=== PATIENT | female | born 1940 | race Caucasian/White ===

== ENCOUNTER → 2023-11-26 10:15 | Outpatient (REF) | payer MEDICARE, SELFPAY | LOC: DHCBS HW 10:15 | PROVIDERS: ATTENDING PHYSICIAN Nuclear Medicine Nuclear Cardiology; FAMILY PHYSICIAN Student in an Organized Health Care Education/Training Program | DX: I48.0 Paroxysmal atrial fibrillation (principal); I25.10 Atherosclerotic heart disease of native coronary artery without angina pectoris; I25.5 Ischemic cardiomyopathy; I34.0 Nonrheumatic mitral (valve) insufficiency | CPT/HCPCS: 93306 ==

== ENCOUNTER → 2024-01-25 06:24 | Day surgery (SDC) | payer MEDICARE, SELFPAY | LOC: GI 06:24 | PROVIDERS: ATTENDING PHYSICIAN Internal Medicine | DX: Z12.11 Encounter for screening for malignant neoplasm of colon (principal); K63.5 Polyp of colon; K57.30 Diverticulosis of large intestine without perforation or abscess without bleeding; K64.9 Unspecified hemorrhoids; K56.2 Volvulus; K22.89 Other specified disease of esophagus; K22.4 Dyskinesia of esophagus; K44.9 Diaphragmatic hernia without obstruction or gangrene; K31.89 Other diseases of stomach and duodenum; R13.10 Dysphagia, unspecified; Z98.0 Intestinal bypass and anastomosis status | CPT/HCPCS: 45380; 43239; 88305; 88342 ==

== ENCOUNTER 2024-02-23 16:03 | Emergency (ER) | payer MEDICARE, SELFPAY ==
[2024-02-23 16:06] VITALS: BP 155/95
[2024-02-23 17:01] VITALS: BMI 20.8
--- NOTE | 2024-02-23 17:11 | ED.GENMED ---
History of Present Illness
General
Chief Complaint: Dizziness
Source: patient
Exam Limitations: none
Time Seen by Provider: 02/23/24 17:04
Travel History
Have you had any contact with someone who has COVID-19?: No
Do you have any symptoms of coronavirus? Fever > 100 degrees, chills, cough, shortness of breath, sore throat, loss of taste or smell, muscle aches, or headache?: No
History of Present Illness
History of Present Illness:
See MDM
Past History
Past History
ED Past Medical History: CAD and GERD
ED Past Surgical History: Bowel resection and Cardiac (ptca 2012)
Social History
Tobacco: Non-smoker
Alcohol: Occasional
Drug: None
Personal:
Living: with family
Employment: Retired
Family History
Family History: CAD
Phy Exam
Physical Exam
Physical Exam:
See MDM
Course
Orders/Labs/Results
Orders:
Orders
02/23/24 16:11
Electrocardiogram (*1) Urgent
Reason for Study: Chest Pain
EKG- Treatment ONCE
02/23/24 17:10
0.9% Sodium Chloride 1000 ml [Nss] 1,000 ml IV BOLUS
02/23/24 17:11
CR Chest - 2 Views Urgent
Comment:
Reason For Exam: SOB, cough
02/23/24 17:16
Basic Metabolic Panel Urgent
COVID-19 Antigen Urgent
Source: Nasal Swab
Complete Blood Count/With Diff Urgent
Influenza A+B Rapid Molecular Urgent
ANG Source: Nasal Swab
Specimen Description:
02/23/24 18:51
NSS 1000mL Bolus over 1 hr 0.9% Sodium Chloride 1000 ml [Nss] 1,000 ml IV BOLUS
Abnormal Lab Results
02/23/24
17:16
RBC 3.88 L 10^6/uL
(4.20-5.40)
Hgb 11.8 L g/dL
(12.0-16.0)
Hct 35.0 L %
(37.0-47.0)
Absolute Neuts (auto) 6.7 H 10^3/uL
(1.4-6.5)
Absolute Lymphs (auto) 0.6 L 10^3/uL
(1.2-3.4)
Neutrophils % 85.8 H %
(42.2-75.2)
Lymphocytes % 7.2 L %
(20.5-51.1)
Sodium 132 L mmol/L
(135-145)
Carbon Dioxide 21 L mmol/L
(22-30)
BUN 19 H mg/dl
(7-17)
Glucose 102 H mg/dl
(70-99)
SARS-CoV-2 Antigen Positive A
(Negative)
02/23/24 17:16
02/23/24 17:55
Vital Signs
Initial and Last Documented VS:
Initial Vital Signs
Temp Pulse Resp BP Pulse Ox
99.1 F 130 20 155/95 98
02/23/24 16:06 02/23/24 16:06 02/23/24 16:06 02/23/24 16:06 02/23/24 16:06
Last Documented Vital Signs
Temp Pulse Resp BP Pulse Ox
99.1 F 114 18 120/104 97
02/23/24 16:06 02/23/24 18:15 02/23/24 18:15 02/23/24 18:00 02/23/24 18:15
MDM/Problems Addressed
Differential Diagnosis Includes:
HPI and MDM Narrative:
83-year-old female presenting with dizziness for the past few days. Symptoms occur when she stands up quickly. Her dizziness is described as lightheadedness. She denies vertiginous symptoms. This is preceded by cough and viral URI symptoms. She
went to urgent care assuming she could have COVID. Patient states they did not test anything and they sent her to the emergency department for evaluation. She denies chest pain or shortness of breath.
On exam, patient is well-appearing and nontoxic. She is tachycardic and clinically dehydrated. She does admit that she is not drinking a lot of fluid. Will obtain chest x-ray and basic blood work. Will check for COVID and will give IV fluids and
reassess tachycardia
Physical exam
General: Well appearing and non-toxic
HEENT: protecting airway. Dry mucous membranes. No nystagmus noted
Neck: appears supple
CV: No evidence of cyanosis. Tachycardic
Resp: No accessory muscle use. Lungs clear
Abd: Non-distended
Extremities: No deformities. No leg edema or unilateral tenderness
Neuro: alert. Normal finger-nose bilaterally
Psych: Normal affect
Skin: Intact
Problems Addressed including Acute and Chronic Conditions affecting care:
1. Lightheadedness
Acuity: acute
Prognosis: stable
Details: Likely in setting of viral URI and dehydration. Will obtain basic blood work and provide IV fluids
2. Cough
Acuity: acute
Prognosis: stable
Details: Will obtain chest x-ray to rule out pneumonia
3. [ ]
Acuity: acute
Prognosis: stable
Details:
4. [ ]
Acuity: acute
Prognosis: stable
Details:
5. [ ]
Acuity:
Prognosis:
Details:
Updates
5:50 PM patient found to be COVID-positive. Chest x-ray clear
Chest x-ray shows possible pulmonary nodules. Discussed having this followed up with PCP
6:50 PM after 1 L of IV fluids, tachycardia improving somewhat. Patient now ambulating to the bathroom and feeling better. Given the persistent mild tachycardia, will give a second liter of fluid. Patient states she feels comfortable going home
Differential Diagnosis (but not limited to): Viral URI, dehydration, COVID
Testing considered: Troponin but she denies chest pain
Drug therapy (if applicable): OTC meds, please see d/c instruction regarding Rx drugs
Amount and/or Complexity of Data Reviewed
Clinical info obtained from: Patient
External data reviewed: N/A
Labs I independently reviewed (but not limited to): White blood cell count within normal
Radiology: X-ray independently reviewed: Chest x-ray clear
Pulse Ox: not hypoxic
EKG independently reviewed: Sinus tachycardia, normal axis, no STEMI
Dog Raiser: Sinus tachycardia
Critical Care: N/A
Risk of Complication:
Social Determinants of health: Good social support
Discussed with other providers: N/A
Escalation of Care includes Admit/Obs: After being observed in the Emergency Department, pt stable for discharge.
Occasional wrong word or 'sound a like' substitutions may have occurred due to the inherent limitations of voice recognition software. Read the chart carefully and recognize, using context, where substitutions have occurred.
*Critical Care Note
Total Time (30-74mins, 75-104mins- exclusive of procedures): Not Applicable
ED Attending Note
-
Portions of this chart may have been created with voice recognition software.� Occasional wrong word or��sound alike� substitutions may have occurred due to the inherent limitations of voice recognition software.
Discharge Plan
Departure
Patient Disposition: Home (Routine Discharge)
Date of Disposition: 02/23/24
Time of Disposition: 18:52
Patient with high blood pressure during this ER visit?: No
Discharge Problem:
COVID-19, Dehydration
Instructions: COVID-19 ED
Prescriptions:
No Action
paroxetine HCl 20 MG tablet
20 mg PO HS
pantoprazole 40 MG tablet,delayed release (DR/EC)
40 mg PO DAILY
nitroglycerin 0.4 MG tablet, sublingual
0.4 mg sublingual Q5MPRN PRN (Reason: X 3; CHEST PAIN) Qty: 30 3RF
Eliquis 5 MG tablet
5 mg PO BID
Hold Instructions: Resume on 10/18/22.
atorvastatin 40 MG tablet
40 mg PO HS
metoprolol tartrate 25 MG tablet
12.5 mg PO BID
aspirin 81 mg Tablet,Chewable
81 mg PO DAILY
letrozole 2.5 mg Tablet
2.5 mg PO DAILY
ezetimibe [Zetia] 10 mg Tablet
10 mg PO HS
Lumigan 0.01 % Drops
1 drp OPHTHALMIC (EYE) DAILY
mupirocin 2 % ointment
1 applic topical BID Qty: 1 0RF
Patient Comments:
started treatment 10/09/22 and was taking BID. last took at home 10/11/21 in am at 0630
famotidine 20 mg Tablet
20 mg PO HS Qty: 1 0RF
Rx Instructions:
take nightly
docusate sodium 100 mg Capsule
100 mg PO BID Qty: 1 0RF
Eliquis 2.5 mg Tablet
2.5 mg PO BID Qty: 1 0RF
Rx Instructions:
resume full dose on Oct if no active incisional bleeding at that time
sennosides [senna] 8.6 mg Tablet
17.2 mg PO BID Qty: 2 0RF
oxycodone 5 mg tablet
5 mg PO Q6HPRN PRN (Reason: moderate-severe pain) Qty: 30 0RF
Rx Instructions:
Dx TKA
ongoing therapy
prednisone 10 mg tablet
40 mg PO TAPER Qty: 20 0RF
Rx Instructions:
4 TABS X 2 DAYS, 3 TABS X 2 DAYS, 2 TABS X 2 DAYS, 1 TAB X 2 DAYS, THEN STOP
acetaminophen [Tylenol Extra Strength] 500 MG tablet
1,000 mg PO QID Qty: 2 0RF
valsartan 40 MG tablet
40 mg PO DAILY Qty: 1 0RF
Rx Instructions:
hold systolic blood pressure <130 if taking Oxycodone
Referrals:
Bing Paz MD [Family Provider] -
Activity Restrictions/Additional Instructions:
Please return for any worsening symptoms.
You may return at any time if you have further concerns.
Please follow up with your doctor at the first available appointment, preferably this week.
The chest x-ray showed concern for possible pulmonary nodules. Please have this followed up with your primary care doctor.
Thank you for choosing [facility].
Interventions
Interventions:
*Risk Screen - Suicide Last Done: 02/23/24 16:06
*General Assessment Last Done: 02/23/24 16:06
*Neglect/Abuse Screening Last Done: 02/23/24 16:06
ED- Fall Risk Assessment Last Done: 02/23/24 17:01
*ED COVID-19 Vaccine History Last Done: 02/23/24 17:01
ED- Neurological Assessment Last Done: 02/23/24 17:01
ED Swallowing Screen Last Done: 02/23/24 18:30
Discharge Date and Time
Print Language: ALB[place]IAN
[2024-02-23] MEDS: NSS 1000 IV ×2 (17:14→18:57)
[2024-02-23 17:23] LABS: % Basophils 0.4 % (0-2); % Immature Granulocytes 0.3 % (0-0.5); % Lymphocytes 7.2 % (20.5-51.1); % Monocytes 6.3 % (1.7-9.3); % Neutrophils 85.8 % (42.2-75.2); Absolute Lymphocytes 0.6 10^3/uL (1.2-3.4); Absolute Monocytes 0.5 10^3/uL (0.1-0.6); Absolute Neutrophils 6.7 10^3/uL (1.4-6.5); Hemoglobin 11.8 g/dL (12.0-16.0); Mean Corp Hgb Conc. 33.7 g/dL (33.0-37.0); Mean Corpuscular Hgb 30.4 pg (27.0-31.0); Mean Corpuscular Volume 90.2 fL (81.0-99.0); Mean Platelet Volume 9.7 fL (7.4-10.4); Nucleated Red Blood Cells % 0 %; Platelet Count 192 10^3/uL (130-400); Red Blood Cell Count 3.88 10^6/uL (4.20-5.40); Red Cell Dist. Width 13.5 % (11.5-14.5); White Blood Cell Count 7.8 10^3/uL (4.8-10.8)
[2024-02-23 17:46] LABS: COVID-19 Antigen Positive (Negative)
[2024-02-23 17:49] LABS: Blood Urea Nitrogen 19 mg/dl (7-17); Calcium 9.1 mg/dl (8.4-10.2); Carbon Dioxide 21 mmol/L (22-30); Chloride 100 mmol/L (98-107); Estimated Creatinine Clearance 60 ml/min; Glucose 102 mg/dl (70-99); Sodium 132 mmol/L (135-145); eGFR > 60.00
[2024-02-23 18:00] VITALS: BP 120/104
--- NOTE | 2024-02-23 19:00 | EDRN ---
Report received, introduced myself to patient, aware after fluids are done she will be going home.
== END 2024-02-23 20:15 | disposition home or self-care (01) ==
LOC: EMR 16:03
PROVIDERS: EMERGENCY PHYSICIAN Student in an Organized Health Care Education/Training Program; FAMILY PHYSICIAN Student in an Organized Health Care Education/Training Program
DX: U07.1 COVID-19 (principal); E86.0 Dehydration; R42 Dizziness and giddiness; Z11.52 Encounter for screening for COVID-19; I25.10 Atherosclerotic heart disease of native coronary artery without angina pectoris; K21.9 Gastro-esophageal reflux disease without esophagitis; Z79.01 Long term (current) use of anticoagulants; Z79.82 Long term (current) use of aspirin
CPT/HCPCS: 99284; 96360; 96361; 71046; 80048; 85025; 87502; 87811; 93005

== ENCOUNTER → 2024-03-25 09:35 | Outpatient (REF) | payer MEDICARE, SELFPAY | LOC: WDC 09:35 | PROVIDERS: ATTENDING PHYSICIAN Nurse Practitioner Family; FAMILY PHYSICIAN Student in an Organized Health Care Education/Training Program | DX: N64.4 Mastodynia (principal); N64.59 Other signs and symptoms in breast; Z85.3 Personal history of malignant neoplasm of breast; C50.211 Malignant neoplasm of upper-inner quadrant of right female breast | CPT/HCPCS: 76642; 77061; 77065 ==

== ENCOUNTER → 2024-04-07 14:14 | Outpatient (REF) | payer MEDICARE, SELFPAY | LOC: HWRAD 14:14 | PROVIDERS: ATTENDING PHYSICIAN Student in an Organized Health Care Education/Training Program | DX: R91.1 Solitary pulmonary nodule (principal) | CPT/HCPCS: 71250 ==

== ENCOUNTER → 2024-06-30 13:24 | Outpatient (REF) | payer MEDICARE, SELFPAY | LOC: HWWDC 13:24 | PROVIDERS: ATTENDING PHYSICIAN Internal Medicine Hematology & Oncology; FAMILY PHYSICIAN Student in an Organized Health Care Education/Training Program | DX: Z12.31 Encounter for screening mammogram for malignant neoplasm of breast (principal) | CPT/HCPCS: 77063; 77067 ==

== ENCOUNTER → 2024-11-19 09:17 | Outpatient (REF) | payer MEDICARE, SELFPAY | LOC: HWRCS 09:17 | PROVIDERS: ATTENDING PHYSICIAN Nuclear Medicine Nuclear Cardiology; FAMILY PHYSICIAN Student in an Organized Health Care Education/Training Program | DX: I25.5 Ischemic cardiomyopathy (principal); I48.0 Paroxysmal atrial fibrillation | CPT/HCPCS: 93306 ==

== ENCOUNTER → 2024-12-12 09:07 | Outpatient (REF) | payer OTHER, SELFPAY | LOC: RAD 09:07 | PROVIDERS: ATTENDING PHYSICIAN Student in an Organized Health Care Education/Training Program | DX: R42 Dizziness and giddiness (principal); Z85.3 Personal history of malignant neoplasm of breast; R51.9 Headache, unspecified; M79.2 Neuralgia and neuritis, unspecified | CPT/HCPCS: 70470; 93922; 93925; Q9967 ==

== ENCOUNTER → 2025-01-29 15:00 | Outpatient (REF) | payer OTHER, SELFPAY | LOC: HWRAD 15:00 | PROVIDERS: ATTENDING PHYSICIAN Psychiatry & Neurology Neurology; FAMILY PHYSICIAN Student in an Organized Health Care Education/Training Program | DX: M54.50 Low back pain, unspecified (principal); M54.17 Radiculopathy, lumbosacral region; M54.2 Cervicalgia; M54.12 Radiculopathy, cervical region; M54.6 Pain in thoracic spine; M54.14 Radiculopathy, thoracic region | CPT/HCPCS: 72050; 72072; 72110 ==

== ENCOUNTER 2025-03-19 15:07 | Inpatient (IN) | payer OTHER, SELFPAY ==
[2025-03-19] VITALS (11 sets, daily range): BP systolic 103–159; BP diastolic 65–109; BMI 18.3
[2025-03-19] MEDS: LOPRESSOR 5 MG IV (11:16)
[2025-03-19 11:30] LABS: % Basophils 0.5 % (0-2); % Eosinophils 1.2 % (0-6); % Immature Granulocytes 0.3 % (0-0.5); % Lymphocytes 22.3 % (20.5-51.1); % Monocytes 9.4 % (1.7-9.3); % Neutrophils 66.3 % (42.2-75.2); Absolute Eosinophils 0.1 10^3/uL (0-0.7); Absolute Lymphocytes 1.3 10^3/uL (1.2-3.4); Absolute Monocytes 0.5 10^3/uL (0.1-0.6); Absolute Neutrophils 3.8 10^3/uL (1.4-6.5); Hematocrit 35.3 % (37.0-47.0); Hemoglobin 11.6 g/dL (12.0-16.0); Mean Corp Hgb Conc. 32.9 g/dL (33.0-37.0); Mean Corpuscular Hgb 31.4 pg (27.0-31.0); Mean Corpuscular Volume 95.4 fL (81.0-99.0); Mean Platelet Volume 9.5 fL (7.4-10.4); Nucleated Red Blood Cells % 0 %; Platelet Count 237 10^3/uL (130-400); Red Cell Dist. Width 14.4 % (11.5-14.5); White Blood Cell Count 5.7 10^3/uL (4.8-10.8)
--- NOTE | 2025-03-19 11:31 | ED.CVA ---
History of Present Illness
General
Chief Complaint: CVA/TIA Symptoms
Time Seen by Provider: 03/19/25 10:50
Onset of Stroke Symptoms
Onset of symptoms known: Yes
Date of onset of symptoms: 03/18/25
Time of onset of symptoms: 14:00
History of Present Illness
History of Present Illness:
84-year-old female with history of A-fib on Eliquis presenting to the emergency department for episode of slurred speech. Patient arrives reporting that yesterday she was in the car with her friend. Her friend noticed an episode of slurred speech
that lasted a few seconds and patient herself noticed it as well. That has since resolved. However when patient woke up this morning, felt like her heart was racing. Her 's bee tender checked her heart rate, noted that it was elevated.
Patient called her doctor who advised that she come to the hospital. She reports she does not typically feel when she is in atrial fibrillation. Denies associated chest pain or difficulty breathing. Denies focal weakness or numbness to
extremities. Denies any history of stroke. Denies visual changes. Denies fever or recent illness. Denies additional acute medical complaints
Past History
Past History
ED Past Medical History: CAD and GERD
ED Past Surgical History: Bowel resection and Cardiac (ptca 2012)
Social History
Tobacco: Non-smoker
Alcohol: Occasional
Drug: None
Personal:
Living: with family
Employment: Retired
Family History
Family History: CAD
Phy Exam
Physical Exam
Physical Exam:
General: Well-appearing, no clinical signs of dehydration, nontoxic and in no acute distress
HEENT: protecting airway
Neck: appears supple
CV: Tachycardic, irregularly irregular rhythm
Resp: No accessory muscle use, no increased work of breathing, lungs clear to auscultation bilaterally
Abd: Soft and non-distended, no tenderness to palpation, normal bowel sounds
Extremities: No deformities, no swelling
Neuro: alert, no focal neurologic deficit
: deferred
Rectal: deferred
Psych: Normal affect
Skin: Intact
Scores
NIH Stroke Score
Level of Consciousness: 0 - Alert
LOC Questions: 0-Answers both correctly
LOC Commands: 0-Performs both correctly
Best Horizontal Gaze: 0-Normal
Visual [place]: 0=Normal, no visual loss
Facial Palsy: 0=Normal, symmetrical
Motor - Right Arm: 0=No drift 10 seconds
Motor - Left Arm: 0=No drift 10 seconds
Motor - Right Le-No drift 5 seconds
Motor - Left Le-No drift 5 seconds
Limb Ataxia: 0-Absent
Sensation: 0-Normal
Best Language: 0-No aphasia
Dysarthria: 0-Normal
Extinction and Inattention: 0-No abnormality
NIH Total Score:: 0
Course
Orders/Labs/Results
Orders:
Orders
03/19/25 10:12
Electrocardiogram (*1) Urgent
Reason for Study: Tachycardia
EKG- Treatment ONCE
03/19/25 11:02
CT Head & Neck Angio W/wo IV Urgent
Comment:
Reason For Exam: episode of slurred speech
Metoprolol [Lopressor] 5 mg IV NOW STA
03/19/25 11:12
Complete Blood Count/With Diff Urgent
Comprehensive Metabolic Panel Urgent
PTT Urgent
Prothrombin Time Urgent
Troponin I Urgent
03/19/25 13:58
Diltiazem 125 mg/125 ml Nss [Cardizem] 125 mg in 125 ml IV NOW
Currently infusing. Continue current dose and titrate:: Yes
Titrate to keep:: Heart rate 80-100 bpm
Titrate by mg/hr:: 5 mg/hr
Frequency of titrations (minutes):: 15
Maximum dose in mg/hr:: 15
Abnormal Lab Results
03/19/25
11:12
RBC 3.70 L 10^6/uL
(4.20-5.40)
Hgb 11.6 L g/dL
(12.0-16.0)
Hct 35.3 L %
(37.0-47.0)
MCH 31.4 H pg
(27.0-31.0)
MCHC 32.9 L g/dL
(33.0-37.0)
Monocytes % 9.4 H %
(1.7-9.3)
Chloride 111 H mmol/L
(98-107)
BUN 20 H mg/dl
(7-17)
AST 43 H U/L
(14-36)
ALT 62 H U/L
(0-35)
03/19/25 11:12
03/19/25 11:12
Vital Signs
Initial and Last Documented VS:
Initial Vital Signs
Temp Pulse Resp BP Pulse Ox
98.1 F 142 16 159/96 98
03/19/25 10:08 03/19/25 10:08 03/19/25 10:08 03/19/25 10:08 03/19/25 10:08
Last Documented Vital Signs
Temp Pulse Resp BP Pulse Ox
98.1 F 119 19 137/98 96
03/19/25 10:08 03/19/25 11:30 03/19/25 11:30 03/19/25 12:00 03/19/25 12:00
MDM/Problems Addressed
MDM/Problems Addressed:
84-year-old female with history of A-fib on Eliquis presenting for episode of slurred speech and elevated heart rate. Vital signs on arrival are significant for tachycardia.
On exam patient is resting comfortably, no acute distress or discomfort. Regarding episode of slurred speech, appears consistent with likely TIA, symptoms since resolved with a current NIH stroke scale of 0. Will plan for CT head and CT neck
imaging. Regarding elevated heart rate, appears to be in A-fib with RVR. Holding off any cardioversion at this time in keeping with workup for acute CVA. Will administer IV metoprolol, metoprolol as patient's home medication. Will continue to
monitor. Laboratory laboratory analysis.
13:30 -patient's labs are relatively unremarkable. Heart rate is minimally improved after metoprolol. CT shows right vertebral artery occlusion, unclear acuity. In discussion with neurology, unlikely to be etiology for symptoms. Ultimately feel
patient warrants admission for continued workup of stroke, MRI. Will discuss with cardiology regarding management of A-fib.
*EKG
Interpreted by ED Provider?: Yes
EKG Intrepretation Date: 03/19/25
EKG Intrepretation Time: 11:35
Interpretation: normal
Comparison EKG: changes noted
Heart Rate: 132
Rate: tachycardiac
Rhythm: a-fib
[place]: normal axis
QRS Pattern: normal QRS
Ischemia: no ischemia
*Critical Care Note
Total Time (30-74mins, 75-104mins- exclusive of procedures): Not Applicable
ED Attending Note
-
Portions of this chart may have been created with voice recognition software.� Occasional wrong word or��sound alike� substitutions may have occurred due to the inherent limitations of voice recognition software.
Discharge Plan
Departure
Patient Disposition: Admit
Date of Disposition: 03/19/25
Time of Disposition: 14:00
Presentation/result/management discussed w/ accepting MD/DO: Hospitalist
Patient with high blood pressure during this ER visit?: No
Condition: Fair
Discharge Problem:
Stroke-like symptoms, Atrial fibrillation with RVR
Prescriptions:
No Action
paroxetine HCl 20 MG tablet
20 mg PO HS
pantoprazole 40 MG tablet,delayed release (DR/EC)
40 mg PO DAILY
nitroglycerin 0.4 MG tablet, sublingual
0.4 mg sublingual Q5MPRN PRN (Reason: X 3; CHEST PAIN) Qty: 30 3RF
Eliquis 5 MG tablet
5 mg PO BID
atorvastatin 40 MG tablet
40 mg PO HS
metoprolol tartrate 25 MG tablet
12.5 mg PO BID
aspirin 81 mg Tablet,Chewable
81 mg PO DAILY
letrozole 2.5 mg Tablet
2.5 mg PO DAILY
ezetimibe [Zetia] 10 mg Tablet
10 mg PO HS
Lumigan 0.01 % Drops
1 drp OPHTHALMIC (EYE) DAILY
mupirocin 2 % ointment
1 applic topical BID Qty: 1 0RF
Patient Comments:
started treatment 10/09/22 and was taking BID. last took at home 10/11/21 in am at 0630
famotidine 20 mg Tablet
20 mg PO HS Qty: 1 0RF
Rx Instructions:
take nightly
docusate sodium 100 mg Capsule
100 mg PO BID Qty: 1 0RF
Eliquis 2.5 mg Tablet
2.5 mg PO BID Qty: 1 0RF
Rx Instructions:
resume full dose on Oct if no active incisional bleeding at that time
sennosides [senna] 8.6 mg Tablet
17.2 mg PO BID Qty: 2 0RF
oxycodone 5 mg tablet
5 mg PO Q6HPRN PRN (Reason: moderate-severe pain) Qty: 30 0RF
Rx Instructions:
Dx TKA
ongoing therapy
prednisone 10 mg tablet
40 mg PO TAPER Qty: 20 0RF
Rx Instructions:
4 TABS X 2 DAYS, 3 TABS X 2 DAYS, 2 TABS X 2 DAYS, 1 TAB X 2 DAYS, THEN STOP
acetaminophen [Tylenol Extra Strength] 500 MG tablet
1,000 mg PO QID Qty: 2 0RF
valsartan 40 MG tablet
40 mg PO DAILY Qty: 1 0RF
Rx Instructions:
hold systolic blood pressure <130 if taking Oxycodone
Referrals:
Bing Paz MD [Family Provider, Internal Medicine]
Interventions
Interventions:
*Risk Screen - Suicide Last Done: 03/19/25 10:11
*General Assessment Last Done: 03/19/25 11:24
*Neglect/Abuse Screening Last Done: 03/19/25 10:11
*ED- Fall Risk Assessment Last Done: 03/19/25 11:24
*ED COVID-19 Vaccine History Last Done: 03/19/25 11:24
ED- Pulmonary Assessment Last Done: 03/19/25 11:54
ED- Neurological Assessment Last Done: 03/19/25 11:54
ED- Cardiac Assessment Last Done: 03/19/25 11:54
Discharge Date and Time
Print Language: ARABIC
[2025-03-19 11:56] LABS: ALT (SGPT) 62 U/L (0-35); APTT 27.5 Sec (23.4-35.0); AST (SGOT) 43 U/L (14-36); Albumin 4.3 g/dl (3.5-5.0); Alkaline Phosphatase 120 U/L (38-126); Blood Urea Nitrogen 20 mg/dl (7-17); Carbon Dioxide 26 mmol/L (22-30); Chloride 111 mmol/L (98-107); Estimated Creatinine Clearance 40 ml/min; Glucose 98 mg/dl (70-99); INR 1.01; PT 13.8 Sec (11.4-14.6); Potassium 4.2 mmol/L (3.5-5.1); Sodium 143 mmol/L (135-145); Total Bilirubin 0.7 mg/dl (0.2-1.3); Total Protein 6.3 g/dl (6.3-8.2); eGFR > 60.00
[2025-03-19 12:02] LABS: Troponin I < 0.012 ng/ml
--- NOTE | 2025-03-19 14:08 | HPS.HSE ---
Family Physician
-
Family Physician: Bing Paz MD
Chief Complaint
-
slurred speech and palpitations
History of Present Illness
Patient is a 84-year-old female with past medical history significant for paroxysmal atrial fibrillation, hypertension, hyperlipidemia, HFpEF, ischemic cardiomyopathy and Hx right breast cancer who presented to [facility] ED for evaluation of episode of
slurred speech and palpitations. Patient reports feeling weakness and some nausea intermittently for a few weeks, then yesterday while driving with a friend had a brief moment of slurred speech that resolved spontaneously. She reports today feeling
palpitations/fluttering in her chest with some lightheadedness. Patient denies any recent illness, fever, chills, cough, shortness of breath or chest pain. Patient does note some memory decline and can sometimes forget to take medications.
Medical History
Past Medical History
Past Medical History: Reports Other
Additional Past Medical History:
paroxysmal atrial fibrillation
hypertension
hyperlipidemia
HFpEF
ischemic cardiomyopathy
Hx right breast cancer
Past Surgical History: Reports Other
Additional Past Surgical History:
LEEP (2000)
Breast biopsy - benign
Cataract extraction
Percutaneous transluminal balloon angioplasty with insertion of stent into coronary artery(2012)
Cardiac catheterization with 2 stent placements
Right Hemicolectomy
Incisional hernia repair(2013)
S/P stenting LAD and mid-RCA with PROMUS drug-eluting stent
Left miniscus repair
Small Bowl Resection from Obstruction (2012)
Conization of Cervix
Hernia Repair (2013)
LT Knee Surgery 2016
Cardiac Cath 06/16/2019
rt breast bx dh breast cancer 05/27
rt lumpectomy 07/2020
RT Breast Bx 06/2020 Benign
LTKR 10/2022
Social History
Tobacco: Non-smoker
Alcohol: Daily (1 glass of wine daily )
Drug: None
Personal:
Living: With Family
Employment: Retired
Family History
Family History: Other (Mother (): CAD; Father ( at 42): CAD, [place] )
Allergies / Home Medications
Allergies reflects when Allergies were last updated in [facility].
Home Medications with original date entered in [facility]
Allergy/Medication List:
Allergies
Allergy/AdvReac Type Severity Reaction Status Date / Time
No Known Allergies Allergy Verified 02/23/24 16:10
Home Medications
pantoprazole 40 mg tablet,delayed release 40 mg PO DAILY Gastrointestinal issue 07/26/15
apixaban 5 mg tablet (Eliquis) 5 mg PO BID Blood clot prevention/tx 07/19/20
Held on 10/12/22. Instructions: Resume on 10/18/22.
atorvastatin 40 mg tablet 40 mg PO HS High cholesterol 07/19/20
metoprolol tartrate 25 mg tablet 12.5 mg PO BID Blood pressure 07/19/20
bimatoprost 0.01 % eye drops (Lumigan) 1 drp ophthalmic (eye) DAILY Eye condition 09/15/22
ezetimibe 10 mg tablet (Zetia) 10 mg PO HS High cholesterol 09/15/22
letrozole 2.5 mg tablet 2.5 mg PO DAILY Cancer 09/15/22
aspirin 81 mg tablet 81 mg PO DAILY 03/19/25
calcium carbonate 1,000 mg PO DAILY 03/19/25
cyanocobalamin (vitamin B-12) 50 mcg tablet (Vitamin B-12) 50 mcg PO BID 03/19/25
duloxetine 30 mg capsule,delayed release 30 mg PO DAILY 03/19/25
evolocumab 140 mg/mL subcutaneous pen injector (Repatha SureDamonick) 140 mg SC ONCE 03/19/25
paroxetine HCl 30 mg tablet 30 mg PO DAILY 03/19/25
Review of Systems
-
History Source: Patient
Constitutional: Reports No Symptoms
EENT: Reports No Symptoms
Respiratory: Reports No Symptoms
Cardiac: Reports Palpitations
Abdomen/GI: Reports No Symptoms
: Reports No Symptoms
Musculoskeletal: Reports No Symptoms
Skin: Reports No Symptoms
Neurological: Reports Dizzy, Weakness and Other (1 episode of slurred speech yesterday )
Endocrine: Reports No Symptoms
Hematologic/Lymphatic: Reports No Symptoms
Psych: Reports No Symptoms
Physical Exam
Vital Signs
Vital Signs
Temp Pulse Resp BP Pulse Ox
98.1 F 119 19 137/98 96
03/19/25 10:08 03/19/25 11:30 03/19/25 11:30 03/19/25 12:00 03/19/25 12:00
Physical Exam
General: Well Developed, Well Nourished, No Apparent Distress, Comfortable and Conversant
HEENT: NormoCephalic, Moist mucous membranes, Atraumatic, Nose Appears Normal, Ears Appear Normal and Hearing Impaired
Respiratory: Clear
Cardiac: S1/S2, Irregular Rhythm and Tachycardia
Breast: Deferred by me
GI: Soft, Non Tender, Non Distended and Normal Bowel Sounds
Rectal: Deferred by Provider
Genito-urinary: Deferred by me
Musculoskeletal: No Clubbing, No Cyanosis and No Edema
Skin: IV/Catheter Site
Neuro: Awake, Alert, AO x 3 and Nonfocal/grossly intact
Psych: Calm
Laboratory Results
-
03/19/25 11:12
03/19/25 11:12
Laboratory Results
PT 13.8 Sec (11.4-14.6) 03/19/25 11:12
INR 1.01 03/19/25 11:12
APTT 27.5 Sec (23.4-35.0) 03/19/25 11:12
Total Bilirubin 0.7 mg/dl (0.2-1.3) 03/19/25 11:12
AST 43 U/L (14-36) H 03/19/25 11:12
ALT 62 U/L (0-35) H 03/19/25 11:12
Alkaline Phosphatase 120 U/L (38-126) 03/19/25 11:12
Troponin I < 0.012 ng/ml 03/19/25 11:12
Data Reviewed
-
CT Scan: Report Reviewed by me (Head/Neck: 1. No acute intracranial abnormality identified. Small chronic lacunar infarct right internal capsule. 2. Occlusion of the right vertebral artery, indeterminate acuity. 3. Approximately 40% stenosis
right internal carotid artery. No significant stenosis left internal carotid artery.)
Medical Tests (Nuc Med, Echo, EKG etc): Report Reviewed by me (EKG: ATRIAL FIBRILLATION WITH RAPID VENTRICULAR RESPONSE NONSPECIFIC ST ABNORMALITY)
Lab Data: Labs Reviewed by me
Impression/Plan
-
IMPRESSION/PLAN:
#palpitations 2/2 paroxysmal atrial fibrillation
EKG: ATRIAL FIBRILLATION WITH RAPID VENTRICULAR RESPONSE
NONSPECIFIC ST ABNORMALITY
Head/Neck CTA: 1. No acute intracranial abnormality identified. Small chronic lacunar infarct right internal capsule.
2. Occlusion of the right vertebral artery, indeterminate acuity.
3. Approximately 40% stenosis right internal carotid artery. No significant stenosis left internal carotid artery.
4. Negative for major branch vessel occlusion, dissection, or aneurysm formation.
Addendum: As described in the findings of the initial report, but not included in the impression, there is also a high-grade stenosis at the origin of the left vertebral artery
(image #35 coronal series).
- Admit to telemetry
- Consult Cardiology
- IV diltiazem
- continue Eliquis and metoprolol
#slurred speech with lightheadedness 2/2 CVA/TIA??
Head/Neck CTA: 1. No acute intracranial abnormality identified. Small chronic lacunar infarct right internal capsule.
2. Occlusion of the right vertebral artery, indeterminate acuity.
3. Approximately 40% stenosis right internal carotid artery. No significant stenosis left internal carotid artery.
4. Negative for major branch vessel occlusion, dissection, or aneurysm formation.
Addendum: As described in the findings of the initial report, but not included in the impression, there is also a high-grade stenosis at the origin of the left vertebral artery
(image #35 coronal series).
- Consult Neurology
- MRI in morning
#transaminitis
AST 43, ALT 62, Alk phos 120
appears to be baseline
- monitor LFTs
#hypertension
- continue metoprolol
#hyperlipidemia
- continue atorvastatin, ezetimibe and Repatha
#HFpEF
ECHO (11/19/2024): Normal left ventricular size, wall thickness and systolic function. No regional wall motion abnormalities are seen. LV ejection fraction is 55-60% by visual assessment.
Normal diastolic function.
Normal right ventricular size and function.
Thickened mitral valve leaflets with moderate mitral regurgitation.
Tricuspid valve opens normally with moderate to severe tricuspid regurgitation.
Estimated pulmonary artery pressure of 35-40 mmHg, assuming a right atrial pressure of 3 mmHg.
- daily weights
- I & Os
- continue metoprolol
#ischemic cardiomyopathy
s/p stent
- continue aspirin
#GERD
- continue pantoprazole
#depression/anxiety
- continue duloxetine and paroxetine
#Hx right breast cancer
- continue letrozole
Code status: full code
DVT Prophylaxis: Eliquis
[2025-03-19] MEDS: CARDIZEM 125 IV (14:29)
--- NOTE | 2025-03-19 15:09 | CON.CAR ---
Addendum entered and electronically signed by Isma Machuca MD 03/19/25 21:00:
Pleasant 84-year-old woman with transient dysarthria yesterday who presented to [facility] with complaints of palpitations and found to be in A-fib with rapid ventricular response.. Neurologic symptoms have completely resolved. CTA
suggested high-grade left vertebral stenosis with modest carotid artery disease. There is a history of known paroxysmal atrial fibrillation, in general she is compliant with Eliquis but may have missed a dose or 2 recently.
PMH: PAF on Eliquis, LAD and RCA PCI in 2014, moderate to severe TR, moderate MR, hypertension and hyperlipidemia
PSH: Volvulus requiring resection in 2012
Outpatient meds: Reviewed, patient on Eliquis and aspirin.
Rest of history per [place]
103/65, pulse 100-120, respirations 16, afebrile, head neck exam unremarkable, lungs are clear, soft systolic murmur with a regular rate and rhythm, tachycardic abdomen benign extremities without significant edema, neuro nonfocal
ECG: Atrial fibrillation with rapid ventricular response, nonspecific ST-T wave changes
Hemoglobin 11.6, white count 5.7, platelets 237, BUN/creatinine 20 and 0.9, AST 43, ALT 62
Impression:
Paroxysmal atrial fibrillation with rapid ventricular response, onset possibly yesterday
TIA, cardioembolic versus atheroembolic
High-grade vertebral stenosis, unlikely to be cause of TIA
Rest of diagnoses as below per Savannah Albarado. Reviewed in detail and agree, unless otherwise specified below
Plan:
She presents with atrial fibrillation that is likely 24 hours in onset, but this is not certain, and she has missed a dose or 2 of anticoagulation over the last 2 or 3 weeks.
Best strategy is to proceed with transesophageal echo and cardioversion, assuming that neurologic status is satisfactory.
MRI to be performed later tonight, if no acute findings, and if neurology does not object, we can proceed with transesophageal echo and cardioversion in a.m. In the event the patient spontaneously reverts to sinus rhythm, FAHEEM can be canceled and we
can proceed with his thoracic echo.
Will discuss with primary oil burner mechanic whether antiarrhythmic therapy is indicated. At this point, we will control rate with IV diltiazem and consider up titration of metoprolol.
Original Note:
Consultation
Consultation Request
Date/Time Consultation Requested: 03/19/2025
Date/Time Consultation Performed: 03/19/2025
Requesting Provider: Dr. Byrd
Performing Provider: Dr. YOSHI Machuca
Reason for Consultation: Possible TIA, A-fib
Medical History
-
History of Present Illness:
Patient came to [facility] today with complaints of palpitations that started suddenly this morning and also mentioned that she had dysarthria yesterday and is now being admitted for possible TIA and A-fib and cardiology has been consulted. Patient
says that she has overall been overwhelmed since anniversary alliance party a week and a half ago, she describes having vivid dreams and not sleeping as well. She is also under a lot of stress helping to care for her . She went out to lunch
with a friend yesterday and driving home she had dysarthria which she could sense but her friend pointed out to her. No other symptoms. She says symptoms resolved and have not recurred. She wonders if she went into atrial fibrillation at that
time, but then describes sudden onset of pounding sensation in her chest that happened after taking a sip of coffee this morning. She has a history of paroxysmal atrial fibrillation dating as far back as at least 2018, but she does not remember if
she was symptomatic at that time. With all the commotion recently she missed at least 1 if not 2 doses of Eliquis in the last 2 weeks.
PMH:
Paroxysmal atrial fibrillation
Chronic Eliquis anticoagulation
Patient reports missing at least 1 if not 2 doses in the last 2 weeks
CAD s/p LAD/RCA PCI 2014
Moderate to severe TR
moderate MR by echo 11/19/2024
Moderate to severe TR with PAP 35 to 40 mmHg, pulmonary HTN by echo 11/19/2024
Afib with controlled ventricular response with hx PAFib
HTN
Hyperlipidemia
hx bowel resection (volvulus 2012)
Past Medical History
Past Medical History: Other (In HPI)
Past Surgical History: Cardiac (LAD and mid RCA stents) and Gynecological (LEEP 2000, breast biopsy)
Social History
Tobacco: Non-Smoker
Alcohol: Daily (glass of wine)
Drug: None
Personal:
Living: With Family
Family History
Family History: CAD
Allergies / Home Medications
Allergy/AdvReac Type Severity Reaction Status Date / Time
No Known Allergies Allergy Verified 02/23/24 16:10
�Medication �Instructions �Recorded �Confirmed �Type
pantoprazole 40 mg tablet,delayed 40 mg PO DAILY Gastrointestinal 07/26/15 03/19/25 History
release issue
apixaban 5 mg tablet (Eliquis) 5 mg PO BID Blood clot 07/19/20 03/19/25 History
Held on 10/12/22. prevention/tx
Instructions: Resume on
10/18/22.
atorvastatin 40 mg tablet 40 mg PO HS High cholesterol 07/19/20 03/19/25 History
metoprolol tartrate 25 mg tablet 12.5 mg PO BID Blood pressure 07/19/20 03/19/25 History
bimatoprost 0.01 % eye drops 1 drp ophthalmic (eye) DAILY Eye 09/15/22 03/19/25 History
(Lumigan) condition
ezetimibe 10 mg tablet (Zetia) 10 mg PO HS High cholesterol 09/15/22 03/19/25 History
letrozole 2.5 mg tablet 2.5 mg PO DAILY Cancer 09/15/22 03/19/25 History
aspirin 81 mg tablet 81 mg PO DAILY 03/19/25 03/19/25 History
calcium carbonate 1,000 mg PO DAILY 03/19/25 03/19/25 History
cyanocobalamin (vitamin B-12) 50 50 mcg PO BID 03/19/25 03/19/25 History
mcg tablet (Vitamin B-12)
duloxetine 30 mg capsule,delayed 30 mg PO DAILY 03/19/25 03/19/25 History
release
evolocumab 140 mg/mL subcutaneous 140 mg SC ONCE 03/19/25 03/19/25 History
pen injector (Philippe Jacques)
paroxetine HCl 30 mg tablet 30 mg PO DAILY 03/19/25 03/19/25 History
Review of Systems
-
History Source: Patient
All other systems: Negative unless noted
Physical Exam
Vital Signs
Temp Pulse Resp BP Pulse Ox
98.5 F 123 19 139/109 98
03/19/25 14:35 03/19/25 14:35 03/19/25 14:35 03/19/25 14:35 03/19/25 14:35
GEN: NAD. AAOx3
HEENT: EOMI, MMM
LUNGS: RA. CTA B/L without wheeze
CV: Afib with RVR on tele. Irreg irreg, S1/S2, no murmur
ABD: ND
EXT: No edema
NEURO: Gross non-focal
SKIN: No rash
Lab Results
03/19/25 11:12
03/19/25 11:12
Troponin I < 0.012 ng/ml 03/19/25 11:12
Impression / Plan
-
PCP: Dr. Bing Paz
Card: Dr. Clemente
Impression:
Admitted with paroxysmal atrial fibrillation with RVR and possible TIA 03/19/2025
Possible TIA, dysarthria symptoms on 03/18/2025 resolved spontaneously and no longer present 03/19/2025
A-fib with RVR
Paroxysmal atrial fibrillation
Chronic Eliquis anticoagulation
Patient reports missing at least 1 if not 2 doses in the last 2 weeks
CAD s/p LAD/RCA PCI 2014
Moderate to severe TR
moderate MR by echo 11/19/2024
Moderate to severe TR with PAP 35 to 40 mmHg, pulmonary HTN by echo 11/19/2024
Afib with controlled ventricular response with hx PAFib
HTN
Hyperlipidemia
hx bowel resection (volvulus 2012)
Echo 07/2017: EF 50%, anteroseptal hypokinesis, moderate TR/MR, PA 35
Echo 06/19/19: with ejection fraction 40-45%. Appears global with hypokinesis of the anterior septum and basal anterior wall. This is in the setting of atrial fibrillation. Moderate to severe TR. At least Moderate MR. PA pressure 35�40 mmHg.
Echo 11/19/2024: EF 55 to 60%, normal diastolic function, normal RV size and function, moderate MR, moderate to severe TR with PAP 35 to 40 mmHg
Plan:
-Patient came to [facility] today with complaints of palpitations that started suddenly this morning and also mentioned that she had dysarthria yesterday and is now being admitted for possible TIA and A-fib and cardiology has been consulted. Patient
says that she has overall been overwhelmed since anniversary alliance party a week and a half ago, she describes having vivid dreams and not sleeping as well. She is also under a lot of stress helping to care for her . She went out to lunch
with a friend yesterday and driving home she had dysarthria which she could sense but her friend pointed out to her. No other symptoms. She says symptoms resolved and have not recurred. She wonders if she went into atrial fibrillation at that
time, but then describes sudden onset of pounding sensation in her chest that happened after taking a sip of coffee this morning. She has a history of paroxysmal atrial fibrillation dating as far back as at least 2018, but she does not remember if
she was symptomatic at that time. With all the commotion recently she missed at least 1 if not 2 doses of Eliquis in the last 2 weeks.
-ECG reviewed by me shows A-fib with RVR
-Patient has symptomatic A-fib with RVR recommend rhythm control strategy with FAHEEM/CV. Will tentatively scheduled for FAHEEM/CV on 03/20/2025, but patient should have her MRI of the brain prior to FAHEEM/CV in the event that she did suffer stroke and if
neurology would want OAC to be held.
-If MRI of the brain is unremarkable and there are no adjustments to OAC regimen by neurology we will proceed with FAHEEM/CV in a.m.
-Prior to admission patient was taking Eliquis 5 mg BID (age 84, Cre 0.9, wt 53 kg), but given age greater than 80 and weight less than 60 kg recommend decreasing to Eliquis 2.5 mg BID, orders changed by me.
-Cardizem gtt running at 5 mg/hr and I talked with IT PROJECT MANAGER and they will increase to 10 mg/hr after patient uses bathroom. Patient previously converted to SR on Cardizem gtt in 2019 at hopeful that she will convert again, if she does not then FAHEEM/CV
as noted above
--- NOTE | 2025-03-19 15:23 | W.PN.UPDATE ---
Update Note
Progress Note Update
This is an addendum to the H&P written by Chelo Buchanan on 03/19/2025. �Patient seen and examined independently with MEDICAL APPOINTMENT CLERK.
84-year-old female past medical history of paroxysmal atrial fibrillation on Eliquis, CAD, ischemic cardiomyopathy, presenting with few days of feeling off, slurred speech occurring yesterday as well as palpitations this morning with dizziness. �No
chest pain or shortness of breath or focal weakness or numbness.
Patient with heart rate 130s. �EKG shows atrial fibrillation with RVR.
Labs show mild transaminitis. �Stable anemia.
CTA head and neck shows high-grade stenosis at the origin of the left vertebral artery. �40% stenosis of the right internal carotid artery. �Small chronic lacunar infarct of the right internal capsule.
Patient with atrial fibrillation with RVR as well as possible TIA.
She was given metoprolol start Cardizem drip. �Cardiology consulted.
Continue Eliquis and aspirin. �Check MRI brain to rule out CVA. �Neurology consulted.
[2025-03-19] MEDS: LOPRESSOR 12.5 MG PO (19:52)
[2025-03-19] MEDS: VITAMIN B-12 1000 MCG PO (19:53)
[2025-03-19] MEDS: ELIQUIS 5 MG PO (19:53)
[2025-03-19] MEDS: ATIVAN 0.5 MG IV (20:37)
[2025-03-19] MEDS: FLUSH (NSS) 1 FLUSH IV (20:38)
[2025-03-19] MEDS: LIPITOR 40 MG PO (22:19)
[2025-03-19] MEDS: NSS (PRESERVATIVE FREE) 0.25 ML IV (22:19)
[2025-03-19] MEDS: XALATAN OPHTHALMIC SOLUTION 1 DROP BOTH EYES (22:19)
[2025-03-19] MEDS: ZETIA 10 MG PO (22:19)
[2025-03-20] VITALS (19 sets, daily range): BP systolic 107–150; BP diastolic 67–106; PULSE 90; O2SAT 98; BMI 19.7
--- NOTE | 2025-03-20 01:26 | PTCARENOTE ---
Addendum entered by Madison Chanel RN 03/20/25 01:32:
Bed alarm in place as pt became more confused as the evening went on.
Original Note:
Received pt @ change of shift. AAOx3, daughter bedside. VSS, A-fib on monitor. Cardizem gtt running @ 10 mL/hr through right AC. Paused gtt for brain MRI. When pt returned, noticed leakage from IV site. Removed IV and placed a new one. Restarted
cardizem gtt @ 5 mL/hr as HR remained between 80-100 bpm. NIH score 0. Discussed plan of care for evening and being NPO @ midnight for ECHO/FAHEEM in AM. Verbalizes understanding. Call dong within reach.
[2025-03-20 05:38] LABS: Hematocrit 32.2 % (37.0-47.0); Hemoglobin 10.6 g/dL (12.0-16.0); Mean Corp Hgb Conc. 32.9 g/dL (33.0-37.0); Mean Corpuscular Hgb 31.4 pg (27.0-31.0); Mean Corpuscular Volume 95.3 fL (81.0-99.0); Mean Platelet Volume 9.3 fL (7.4-10.4); Platelet Count 219 10^3/uL (130-400); Red Blood Cell Count 3.38 10^6/uL (4.20-5.40); Red Cell Dist. Width 14.4 % (11.5-14.5); White Blood Cell Count 7.4 10^3/uL (4.8-10.8)
[2025-03-20 06:21] LABS: ALT (SGPT) 67 U/L (0-35); AST (SGOT) 55 U/L (14-36); Albumin 3.8 g/dl (3.5-5.0); Alkaline Phosphatase 108 U/L (38-126); Blood Urea Nitrogen 19 mg/dl (7-17); Calcium 8.7 mg/dl (8.4-10.2); Carbon Dioxide 24 mmol/L (22-30); Chloride 110 mmol/L (98-107); Estimated Creatinine Clearance 49 ml/min; Glucose 94 mg/dl (70-99); HDL Cholesterol 67 mg/dl; LDL Cholesterol, Calculated 15 mg/dl; Sodium 140 mmol/L (135-145); Total Bilirubin 0.8 mg/dl (0.2-1.3); Total Cholesterol 95 mg/dl (50-199); Total Protein 5.9 g/dl (6.3-8.2); Triglyceride 69 mg/dl (10-149); Very Low Density Lipoprotein 13 mg/dl (0-30); eGFR > 60.00
[2025-03-20] MEDS: CARDIZEM 125 IV (08:00)
--- NOTE | 2025-03-20 09:07 | CON.NEURO4 ---
Addendum entered and electronically signed by Gregory Schneider MD 03/20/25 14:34:
Studies reviewed.
I have personally examined the patient. I reviewed and agree with the ANALYTICAL LAB ANALYST's Note.
My addenda:
Awake, alert, interactive. No acute distress.
Speech intact.
Follows 2-step requests w/o difficulty. No tremor.
Extra-ocular movements grossly intact.
Facial movements full and symmetric. Hearing intact to normal conversational volume.
Normal UE movements bilaterally.
Neck: full ROM.
Chest: no dyspnea
Heart: no JVD
Ext: (-) Clubbing, (-) Cyanosis, (-) Edema
IMPRESSIONS/RECOMMENDATIONS:
Abrupt onset of dysarthria during atrial fibrillation rapid ventricular response and prior suggestion of chronic daily headache as well as cognitive issues
At this time, patient's symptomatology seems to be most likely secondary to cardiac dysrhythmia on a background of potential cognitive worsening in the past year
Inpatient, check blood work for potential metabolic abnormalities
Check orthostatic blood pressures
Continue apixaban
Outpatient neuropsychological testing
Provide patient with thiamine to ensure adequate levels
Continue duloxetine with suggestion of increased dosing in hopes of reducing the patient's daily headaches
Continue at home Ezetimibe and evolocumab
D/W patient
Will continue to follow as outpatient.
Original Note:
Consultation - Neurology 4
-
CONSULTING PHYSICIAN: Gregory Schneider MD
REFERRING PHYSICIAN: Hospitalists/JUANITA Dunbar
DICTATED BY: JUANITA Lowe
DATE/TIME OF REQUEST: 03/19/25
DATE/TIME OF CONSULTATION: 03/20/25
Reason for Consultation: Transient slurred speech, dizziness
History of Present Illness:
This is a 84-year-old right-handed female who has presented to the hospital on 03/19/25 with report of dysarthria, weakness, and heart racing. Patient reports that two days ago (03/18/25) she was driving when she started to feel weak, dizzy, and her
speech was slurred for one minute before resolving. She drove home and upon getting out of the car she noticed she couldn't walk straight. She drank some water and took a nap and reports that she felt better. Then yesterday (03/19/25), she felt like
her heart was racing and was lightheaded. She checked her heart rate and it was elevated so she called her PCP who advised her to come to the ER for evaluation. On arrival in the ER she was in Afib with RVR. CTA head/neck was obtained and
demonstrates high-grade stenosis of the left vertebral artery and occlusion of the right vertebral artery. She received lorazepam prior to MRI brain imaging last evening and subsequently had hallucinations throughout the night which she describes as
seeing scary people. Today (03/20/25) she reports feeling at her baseline. She reports about a one-year history of a light-headed sensation, short term memory issues, word finding difficulty, and feeling like food gets stuck in her throat at least
once a week. She attributes her memory problems to not being able to hear well (she has hearing aids but reports they don't work well). She also notes a chronic daily headache and has been taking Tylenol everyday for years. She is followed by pain
management for neck pain and has received steroid injections. Her mostly manages the finances and always has. She reads frequently. She does not some issues driving over the past year, she has trouble staying in her luz. She also notes that
she occasionally misses doses of her apixaban. She had an EMG in 2010 that demonstrated length dependent peripheral polyneuropathy.
Past Medical History: Afib (Eliquis), HTN, HLD, HFpEF, ischemic cardiomyopathy, R breast cancer
Surgical History: LEEP, R lumpectomy, b/l cataract removal, Cardiac cath, LAD and mid-RCA cardiac stents, left meniscus repair, small bowel resection, L TKR, peripheral neuropathy
Family History: Reviewed and noncontributory.
Social History: Denies tobacco and illicit drug use. One glass of wine daily with dinner.
Allergies: No known allergies.
Home Medications: See below.
Review of Symptoms:
Patient denies any fever, headache, chest pain, shortness of breath, GI or symptoms.
�Per the HPI.�All systems are reviewed negative except above.
Physical Exam:
The patient is afebrile, abdomen is nondistended, breathing is unlabored, skin is warm and dry, no edema.
NIH Stroke Scale:
I performed the NIH stroke scale on the patient on 03/20/25 at 0915. The patient scored 0 points on the NIH stroke scale assessment, which were assigned as follows: See below.
Neurologic Examination:
The patient is awake, alert and oriented x 3. Next holiday- Father's Day. Most recent holiday- Mother's Day. She is able to follow commands and answer questions appropriately. There is no aphasia or dysarthria. On cranial nerve assessment, pupils
are 3 mm bilateral, round and reactive to light and accommodation. Visual rendon are full. Extraocular movements are intact. Facial sensations are intact and bilaterally symmetrical, there is no facial asymmetry. Hearing is diminished bilaterally to
normal conversation volume. Tongue palate and uvula are midline. Sternocleidomastoid strengths are full bilaterally. Motor strengths are 5/5 bilateral upper and lower extremities on medical research [place] scale. There is no drift. Bilateral upper
extremity distal endpoint low amplitude tremor. Deep tendon reflexes are 2+ bilateral upper and lower extremities and Babinski is absent bilaterally. There was no extinction noted on double simultaneous stimulation. Coordination is intact by finger
to nose bilaterally. Wide based gait.
Lab Results: See below.
Neuro Imaging:
1. CTA head/neck 03/19/25: No acute intracranial abnormality identified. Small chronic lacunar infarct right internal capsule. Occlusion of the right vertebral artery, indeterminate acuity. High-grade stenosis in the left vertebral artery.
Approximately 40% stenosis right internal carotid artery. No significant stenosis left internal carotid artery.
Negative for major branch vessel occlusion, dissection, or aneurysm formation.
2. MRI brain 03/19/25: No acute intracranial abnormality noted. Chronic senescent changes.
Differentials for the patient's presentation include:
1. Transient dysarthria, dizziness, and ataxia; etiology possibly cardiac arrhythmia, TIA. MRI brain is negative for stroke.
2. 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
3. Likely underlying cognitive impairment.
Patient has the following risk factors for their symptoms: Afib, missed doses of apixaban, high grade vertebral stenosis
Recommendations:
-Continue home apixaban.
-Goal normotension.
-Check orthostatic vital signs
-Checking blood work for metabolic abnormalities.
-LDL goal <70. LDL is 15. Continue home Repatha.
-Goal normoglycemia, hbA1c is 5.7.
-NIHSS and neurological checks per unit guidelines.
-Provide patient with a stroke education packet.
-PT/OT/ST evaluations
-Considering increasing duloxetine from 30mg to 60mg for headache prevention.
-Outpatient Neuropsychological testing.
Discussed patient care with: Dr. Schneider, the patient
Vital Signs and Labs
-
Vital Signs and Labs:
Vital Signs
Temp Pulse Resp BP Pulse Ox
97.9 F 84 18 113/76 97
03/20/25 12:15 03/20/25 13:00 03/20/25 12:15 03/20/25 12:14 03/20/25 12:15
Lab Results
03/20/25 04:45
03/20/25 04:45
PT 13.8 Sec (11.4-14.6) 03/19/25 11:12
INR 1.01 03/19/25 11:12
APTT 27.5 Sec (23.4-35.0) 03/19/25 11:12
Sodium 140 mmol/L (135-145) 03/20/25 04:45
Potassium 4.0 mmol/L (3.5-5.1) 03/20/25 04:45
BUN 19 mg/dl (7-17) H 03/20/25 04:45
Glucose 94 mg/dl (70-99) 03/20/25 04:45
Calcium 8.7 mg/dl (8.4-10.2) 03/20/25 04:45
LDL Cholesterol, Calc 15 mg/dl 03/20/25 04:45
Medications
-
Active Medications
Generic Name Dose Route Start Last Admin
Trade Name Fresharyn PRN Reason Stop Dose Admin
Apixaban 2.5 mg 03/20/25 11:27
Apixaban (Eliquis) 5 Mg Tablet PO 04/16/25 19:59
BID ELIANE
Aspirin 81 mg 03/20/25 08:00 03/20/25 09:13
Aspirin 81 Mg Chewable Tablet PO 04/17/25 07:59 81 mg
DAILY ELIANE Administration
Atorvastatin Calcium 40 mg 03/19/25 22:00 03/19/25 22:19
Atorvastatin (Lipitor) 40 Mg Tablet PO 04/16/25 21:59 40 mg
HS ELIANE Administration
Calcium Carbonate 1,000 mg 03/20/25 08:00 03/20/25 09:17
Calcium Carbonate 500 Mg Tablet PO 04/17/25 07:59 1,000 mg
DAILY ELIANE Administration
Cyanocobalamin 1,000 mcg 03/19/25 20:00 03/20/25 09:13
Cyanocobalamin 1,000 Mcg Tablet PO 04/16/25 19:59 1,000 mcg
BID ELIANE Administration
Duloxetine HCl 30 mg 03/20/25 08:00 03/20/25 09:17
Duloxetine Delayed Release 30 Mg Capsule PO 04/17/25 07:59 30 mg
DAILY ELIANE Administration
Ezetimibe 10 mg 03/19/25 22:00 03/19/25 22:19
Ezetimibe (Zetia) 10 Mg Tablet PO 04/16/25 21:59 10 mg
HS ELIANE Administration
Diltiazem HCl 125 mg in 125 mls @ 0 mls/hr 03/20/25 07:45 03/20/25 08:00
Cardizem IV 125 mls
PER PROTOCOL ELIANE Administration
Protocol
Per Protocol
Latanoprost 0 drop 03/19/25 22:00 03/19/25 22:19
Latanoprost 0.005% (Ophthalmic Solution) 2.5 Ml Bottle BOTH EYES 04/16/25 21:59 1 drop
HS ELIANE Administration
Letrozole 2.5 mg 03/20/25 08:00 03/20/25 09:13
Letrozole 2.5 Mg (Non-Form) Tablet PO 04/17/25 07:59 2.5 mg
DAILY ELIANE Administration
Lorazepam 0.5 mg 03/19/25 20:29
Lorazepam 2 Mg/Ml Vial IV 04/16/25 20:28
Q4HPRN PRN
anxiety
Metoprolol Tartrate 25 mg 03/20/25 20:00
Metoprolol 25 Mg Regular Release Tablet PO 04/17/25 19:59
BID ELIANE
Pantoprazole Sodium 40 mg 03/20/25 08:00 03/20/25 09:13
Pantoprazole 40 Mg Delayed Release Tablet PO 04/17/25 07:59 40 mg
DAILY ELIANE Administration
Paroxetine HCl 30 mg 03/20/25 08:00 03/20/25 09:13
Paroxetine 30 Mg Tablet PO 04/17/25 07:59 30 mg
DAILY ELIANE Administration
Sodium Chloride 0 flush 03/19/25 18:00 03/19/25 20:38
Sodium Chloride 0.9% (Flush) Syringe IV 04/16/25 17:59 1 flush
PER PROTOCOL ELIANE Administration
Sodium Chloride 0.25 ml 03/19/25 20:33
Nss (Pf) 10 Ml Vial For Ativan 0.5 Mg Dose IV 04/16/25 20:32
Q4HPRN PRN
IV LORAZEPAM DILUTION
Home Medications
�Medication �Instructions �Recorded
pantoprazole 40 mg tablet,delayed 40 mg PO DAILY Gastrointestinal 07/26/15
release issue
apixaban 5 mg tablet (Eliquis) 5 mg PO BID Blood clot 07/19/20
Held on 10/12/22. prevention/tx
Instructions: Resume on
10/18/22.
atorvastatin 40 mg tablet 40 mg PO HS High cholesterol 07/19/20
metoprolol tartrate 25 mg tablet 12.5 mg PO BID Blood pressure 07/19/20
bimatoprost 0.01 % eye drops 1 drp BOTH EYES DAILY Eye condition 09/15/22
(Lumigan)
ezetimibe 10 mg tablet (Zetia) 10 mg PO HS High cholesterol 09/15/22
letrozole 2.5 mg tablet 2.5 mg PO DAILY Cancer 09/15/22
aspirin 81 mg tablet 81 mg PO DAILY 03/19/25
calcium carbonate 1,000 mg PO DAILY 03/19/25
cyanocobalamin (vitamin B-12) 50 50 mcg PO BID 03/19/25
mcg tablet (Vitamin B-12)
duloxetine 30 mg capsule,delayed 30 mg PO DAILY 03/19/25
release
evolocumab 140 mg/mL subcutaneous 140 mg SC ONCE 03/19/25
pen injector (Philippe Jacques)
paroxetine HCl 30 mg tablet 30 mg PO DAILY 03/19/25
[2025-03-20] MEDS: LOW STRENGTH ASPIRIN 81 MG PO (09:13)
[2025-03-20] MEDS: VITAMIN B-12 1000 MCG PO ×2 (09:13→20:21)
[2025-03-20] MEDS: ELIQUIS 5 MG PO (09:13)
[2025-03-20] MEDS: PROTONIX 40 MG PO (09:13)
[2025-03-20] MEDS: FEMARA 2.5 MG PO (09:13)
[2025-03-20] MEDS: PAXIL 30 MG PO (09:13)
[2025-03-20] MEDS: LOPRESSOR 12.5 MG PO ×2 (09:14→12:06)
[2025-03-20] MEDS: CYMBALTA DELAYED RELEASE 30 MG PO (09:17)
[2025-03-20] MEDS: OSCAL CAL 500 1000 MG PO (09:17)
--- NOTE | 2025-03-20 09:24 | W.PN.HOSP.TC ---
Today's Communication/Plan
-
.
Assessment / Plan
Assessment / Plan
Physical Exam
General: Well Developed, Well Nourished, No Apparent Distress, Comfortable and Conversant
HEENT: Normocephalic, Moist mucous membranes, Atraumatic, Nose Appears Normal, Ears Appear Normal and Hearing Impaired
Respiratory: Clear
Cardiac: S1/S2, Irregular Rhythm
GI: Soft, Non Tender, Non Distended and Normal Bowel Sounds
Genito -urinary: No Garcia, no CV tenderness.
Musculoskeletal: No Clubbing, No Cyanosis and No Edema
Neuro: Awake, Alert, AO x 3 and Nonfocal/grossly intact, no tremor.
Psych: Calm
# An episode of slurred speech on 03/18, short time, recovered spontaneously
Doubt TIA
MRI no acute stroke
Appreciate neurology help
# Toxic encephalopathy by IV Ativan for MRI
PEr staff: she experienced visual hallucination all night
Her mentation is improving
# History of paroxysmal atrial fibrillation with RVR
Started on IV Cardizem gtt
She is not in distress, she denies sob or palpitations
Echo 11/19/2024: EF 55 to 60%, normal diastolic function, normal RV size and function, moderate MR, moderate to severe TR with PAP 35 to 40 mmHg
On BB, to increase dose as BP tolerates
Appreciate cardiology help, primary research technologist Dr Clemente.
# Chronic Anxiety
HTN
Hyperlipidemia
h/o bowel resection (volvulus 2012)
Total time spent to see the patient, examine the patient, review data and lab result, discuss treatment plan with patient, nursing staff around 55 minutes
Anticipated Discharge: 24 - 48 hours
Subjective/Interval History
-
Date of Service: March 20, 2025
No sob
No chest pain
She reports that she still not thinking clearly
Objective Data
-
Labs:
Laboratory Results
03/20/25
04:45
WBC 7.4
Hgb 10.6 L
Hct 32.2 L
Plt Count 219
Sodium 140
Potassium 4.0
Chloride 110 H
Carbon Dioxide 24
BUN 19 H
Creatinine 0.8
Glucose 94
Calcium 8.7
Total Bilirubin 0.8
AST 55 H
ALT 67 H
Alkaline Phosphatase 108
Vital Signs:
Vital Signs
Temp Pulse Resp BP Pulse Ox
97.8 F 98 18 138/93 98
03/20/25 07:18 03/20/25 09:14 03/20/25 07:18 03/20/25 09:14 03/20/25 07:18
[2025-03-20 10:09] LABS: Erythrocyte Sed Rate 28 mm/hour (0-20)
--- NOTE | 2025-03-20 10:33 | W.PN.CARDCBS ---
Addendum entered and electronically signed by Bradley Mark MD 03/20/25 13:20:
I saw and examined the patient.
The Poolroom Table Attendant's note was reviewed and I agree with the note.
Comment: Briefly, 84-year-old woman past medical history of atrial fibrillation on Eliquis, CAD status post remote PCI and moderate MR/TR presenting with palpitations and found to be in atrial fibrillation with rapid ventricular response
Overnight patient was reportedly delirious and was telling me this morning that she saw children in her room
Heart rate is well-controlled on diltiazem drip and she does not seem to be highly symptomatic today
Initial plan was for FAHEEM/direct-current cardioversion but given altered mental status would hold off for now
Uptitrate home metoprolol and wean diltiazem drip for goal heart rate less than 110 bpm
We can arrange for cardioversion next week or as an outpatient if she does not spontaneously convert
Recommend dose reducing Eliquis for age and weight
For completeness check transthoracic echocardiogram
Original Note:
Today's Communication / Plan
-
Holding off on FAHEEM/CV w/ concern for possible TIA
Plan for rate control alone for now.
Metoprolol tartrate increased
Wean cardizem gtt at able
Continue Eliquis at lower dose 2.5mg BID
Impression / Plan
-
PCP: Dr. Bing Paz
Card: Dr. Clemente
Impression:
Admitted with paroxysmal atrial fibrillation with RVR and possible TIA 03/19/2025
Possible TIA, dysarthria symptoms on 03/18/2025 resolved spontaneously and no longer present 03/19/2025
Paroxysmal atrial fibrillation w/ RVR on arrival
Chronic Eliquis anticoagulation
Patient reports missing at least 1 if not 2 doses in the last 2 weeks
CAD
s/p LAD/RCA PCI 2014
Moderate to severe TR
moderate MR by echo 11/19/2024
HTN
Hyperlipidemia
h/o bowel resection (volvulus 2012)
Echo 07/2017: EF 50%, anteroseptal hypokinesis, moderate TR/MR, PA 35
Echo 06/19/19: with ejection fraction 40-45%. Appears global with hypokinesis of the anterior septum and basal anterior wall. This is in the setting of atrial fibrillation. Moderate to severe TR. At least Moderate MR. PA pressure 35�40 mmHg.
Echo 11/19/2024: EF 55 to 60%, normal diastolic function, normal RV size and function, moderate MR, moderate to severe TR with PAP 35 to 40 mmHg
Plan:
-Presented with paroxysmal afib and possible TIA. MRI of brain 03/19 without evidence of acute stroke.
-There was consideration for FAHEEM/CV, however with suspicion for TIA 03/20 will hold off for now and focus primarily on rate control.
-Continues on cardizem gtt @10. HR improved, now in the 90s. Will increase metoprolol tartrate to 25mg BID and wean cardizem gtt as able.
-Continue Eliquis for anticoagulation, however with age 84 and weight 56 kg, appropriate dose is 2.5mg BID, so dose reduced this admission.
-Echo 11/2024 noted preserved EF with moderate MR. Consider repeat TTE to reassess.
-K 4.0. TSH pending.
-Continue lipitor and zetia.
-Trop negative.
HPI: Patient came to [facility] ER today with complaints of palpitations that started suddenly this morning and also mentioned that she had dysarthria yesterday and is now being admitted for possible TIA and A-fib and cardiology has been consulted.
Patient says that she has overall been overwhelmed since anniversary alliance party a week and a half ago, she describes having vivid dreams and not sleeping as well. She is also under a lot of stress helping to care for her . She went out to
lunch with a friend yesterday and driving home she had dysarthria which she could sense but her friend pointed out to her. No other symptoms. She says symptoms resolved and have not recurred. She wonders if she went into atrial fibrillation at
that time, but then describes sudden onset of pounding sensation in her chest that happened after taking a sip of coffee this morning. She has a history of paroxysmal atrial fibrillation dating as far back as at least 2018, but she does not
remember if she was symptomatic at that time. With all the commotion recently she missed at least 1 if not 2 doses of Eliquis in the last 2 weeks.
Progress Note - Mine Shifter
Subjective
Date of Service: March 20, 2025
Objective
Labs:
03/20/25 04:45
03/20/25 04:45
Labs
Hgb 10.6 g/dL (12.0-16.0) L 03/20/25 04:45
Hct 32.2 % (37.0-47.0) L 03/20/25 04:45
Plt Count 219 10^3/uL (130-400) 03/20/25 04:45
PT 13.8 Sec (11.4-14.6) 03/19/25 11:12
INR 1.01 03/19/25 11:12
APTT 27.5 Sec (23.4-35.0) 03/19/25 11:12
Sodium 140 mmol/L (135-145) 03/20/25 04:45
Potassium 4.0 mmol/L (3.5-5.1) 03/20/25 04:45
BUN 19 mg/dl (7-17) H 03/20/25 04:45
Creatinine 0.8 mg/dL (0.6-1.0) 03/20/25 04:45
Glucose 94 mg/dl (70-99) 03/20/25 04:45
Troponins
03/19/25
11:12
Troponin I < 0.012
Vital Signs and I&O:
Vital Signs
Temp Pulse Resp BP Pulse Ox
97.8 F 98 18 138/93 98
03/20/25 07:18 03/20/25 09:14 03/20/25 07:18 03/20/25 09:14 03/20/25 07:18
Vital Signs
Temp Pulse Resp BP Pulse Ox
97.8 F 98 18 138/93 98
03/20/25 07:18 03/20/25 09:14 03/20/25 07:18 03/20/25 09:14 03/20/25 07:18
Physical Exam
Physical Exam
GEN: NAD. Awake, alert, oriented x3
HEENT: MMM
LUNGS: CTA B/L without wheeze
CV: Irreg irreg, S1/S2, no murmur
EXT: No clubbing, cyanosis, or edema
NEURO: Gross non-focal
SKIN: Warm, dry, no rash
[2025-03-20 11:40] LABS: Glycohemoglobin (HgbA1c) 5.7 % (4.0-5.6)
--- NOTE | 2025-03-20 13:54 | CM ---
Reviewed chart. Met with Mrs. Clark and her children to review discharge plans. Prior to admission she [facility] with her spouse. She states prior to admission she was independent with ambulation and adls. She has a
walker rollator, single point cane and a raised toilet seat at home. Family states they have been looking to go a jail community that has assisted living. Her spouse may need that level of care. They have been looking at [facility], [facility] and [place]. Family states therapy was recommending some level of inpatient rehab., acute versus SNF. She will need precert for Acute or SNF Rehab. with her insurance. Referral made to [facility]. at
[place]. Medical work-up in progress. The discharge plan is to go to some level of inpatient rehab. when medically stable and approved by her insurance when medically stable.
--- NOTE | 2025-03-20 14:52 | PTOTSP ---
Dysphagia Evaluation
Oral/pharyngeal stages of swallowing were within functional limits for consistencies assessed. Patient with history of video swallow study 07/23/2017 - normal. EGD 01/25/2024 inefficient peristalsis, abnormal motility, hiatal hernia. Based on
history suspect esophageal symptoms causing reported coughing w/ PO intake. No overt s/s of dysphagia or aspiration observed today.
Patient with AMS at time of evaluation. Per neurology notes, concern for underlying cognitive impairment noted. Per hospitalist's note there is acute concern for encephalopathy secondary to Ativan for MRI. Consider cognitive evaluation when acute
reversible factors resolved.
Recommend:
1. IDDSI Level 7 Regular, Thin
2. Meds: crushed in puree if medically cleared
3. Strategies: upright to 90 degrees, SUPERVISION given AMS, single sips/bites, slow rate, reflux precautions
4. Cognitive evaluation if/when appropriate
5. PIGMENT GRINDER to f/u to determine if/when repeat instrumental swallowing assessment warranted.
[2025-03-20] MEDS: VITAMIN B1 100 MG PO (16:48)
--- NOTE | 2025-03-20 19:04 | PTCARENOTE ---
~[id number]: Handoff report received from nightshift RN. Pt AOx4 at this time but occassionally disoriented to place, forgetful. Bed alarm and chair alarm in place for safety with patient frequently violating bed/chair alarms, Pt reoriented PRN.
NIHSS 0 at this time. Visual and auditory hallucinations at this time. Afib on tele 90s-100s, cardizem gtt infusing at 10 at change of shift. Pt on RA satting high 90s. Pt denies pain at this time. NPO for FAHEEM this AM. Pt seen by neurology. All
needs met at this time, call dong within reach.
~0765-9913: Pt worked with PT and ambulated in room. Patient does c/o dizziness and unsteadiness on feet. Orthostatic BPs completed per order. milrinone weaned to 5 at this time for HR 70s afib. Family at bedside, patient OOB in chair, chair alarm/
bed alarm in place for safety, visual and auditory hallucinations persist. Pt ambulated to bathroom with Ax1 at this time and back to bed after. All needs met at this time, call dong within reach.
~3941-4434: Cardizem gtt weaned off per protocol. Afib 70s-80s at this time. All needs met, call dong within reach. While speaking with family, patient 'does have anxiety with things like traveling and hospital tests, for things like this she has
taken xanax in the past.' FAHEEM cancelled d.t mentation, bedside ECHO ordered instead.
~2142-5905: Bedside ECHO completed. CHF and stroke booklets reviewed with patient and family.
~8226-5277: Daughter left, patient progressively more spontaneous/ forgetful. Patient persists with vivid visual and auditory hallucinations, however answers all orientation questions approapriately. Patient continually violtates bed alarm and
requires very frequent reorienting. Pt Afib 110s-120s at this time, Cardizem gtt restarted @ 5. Hospitalist made aware.
~2207-2632: Cardizem gtt titrated to 10, HR 110s-120s.
~5910-5706: Handoff report given to nightshift RN.
[2025-03-20] MEDS: LOPRESSOR 25 MG PO (20:21)
[2025-03-20] MEDS: ELIQUIS 2.5 MG PO (20:22)
[2025-03-20 21:55] LABS: TSH Reflex To Free T4 2.35 uIU/ml (0.47-4.68)
[2025-03-20] MEDS: LIPITOR 40 MG PO (22:07)
[2025-03-20] MEDS: XALATAN OPHTHALMIC SOLUTION 1 DROP BOTH EYES (22:07)
[2025-03-20] MEDS: ZETIA 10 MG PO (22:07)
[2025-03-20 22:31] LABS: Folate 12.7 ng/ml (2.76-20); Vitamin B12 823 pg/ml (239-931)
--- NOTE | 2025-03-20 23:39 | PTCARENOTE ---
Received pt @ change of shift. AAO to person and time, not location. Bed alarm in place. Pt hallucinating and confused, but pleasant and following commands. 1-on-1 provided for safety of pt. VSS, A-Fib on monitor. Cardizem gtt running through right
forearm @ 10 mL/hr-- titrated per worklist and parameters. NIH scale 0. Discussed plan of care with pt. Call dong within reach.
[2025-03-21] VITALS (24 sets, daily range): BP systolic 104–166; BP diastolic 72–129; PULSE 86–110; BMI 19.5
--- NOTE | 2025-03-21 02:24 | PTCARENOTE ---
Pt is continuing to have auditory and visual hallucinations.
[2025-03-21 04:52] LABS: Urine Albumin 2+ (Neg - Trace); Urine Bilirubin Negative (Negative); Urine Character Cloudy (Clear); Urine Color Yellow; Urine Glucose Negative (Negative); Urine Ketone Negative (Negative); Urine Leukocyte 3+ (Negative); Urine Nitrite Positive (Negative); Urine Occult Blood 2+ (Negative); Urine Urobilinogen Negative (Neg - 1+)
[2025-03-21 05:08] LABS: Urine White Cell 50-60 /HPF (0-5)
[2025-03-21 05:09] LABS: Urine Bacteria Many (Negative)
--- NOTE | 2025-03-21 06:10 | PTCARENOTE ---
Pt's BP 166/116-- checked multiple times and in both arms. Notified Cinthia Elaine NP-- STAT order for IV Lopressor placed. While order being processed, RN had pt go to the bathroom to check if BP was an autonomic response. BP was 146/97 after
urination, so IV STAT lopressor was held and CBX OPERATOR notified.
--- NOTE | 2025-03-21 07:59 | W.PN.CARDCBS ---
Addendum entered and electronically signed by Denzel Lim DO 03/21/25 10:41:
I saw and examined the patient.
The Manager Floral's note was reviewed and I agree with the note.
Comment:
Patient seen and examined. Patient resting comfortably in bed. Patient A&O x 3 but still notes some mild confusion but states improving. Denies chest pain, shortness of breath, palpitations, weakness.
GEN: NAD. Awake, alert, oriented x3
HEENT: MMM
LUNGS: CTA B/L without wheeze
CV: Irreg irreg, S1/S2, no murmur
EXT: No clubbing, cyanosis, or edema
NEURO: Gross non-focal
SKIN: Warm, dry, no rash
Telemetry shows AF
A/P as below
Continue rate control strategy with beta-ally therapy wean diltiazem drip
Recommend treating underlying causes, concern for possible UTI which may exacerbate things
Continue anticoagulation
As needed IV Lopressor
If no improvement with mental status, consider psych/neurologic evaluations
Original Note:
Today's Communication / Plan
-
Lopressor 5 mg IV q 4 hours PRN HR greater than 120
Check ECG later today
Impression / Plan
-
PCP: Dr. Bing Paz
Card: Dr. Clemente
Impression:
Admitted with paroxysmal atrial fibrillation with RVR and possible TIA 03/19/2025
Possible TIA, dysarthria symptoms on 03/18/2025 resolved spontaneously and no longer present 03/19/2025
Paroxysmal atrial fibrillation w/ RVR on arrival
Chronic Eliquis anticoagulation
Patient reports missing at least 1 if not 2 doses in the last 2 weeks
CAD
s/p LAD/RCA PCI 2014
Moderate to severe TR
moderate MR by echo 11/19/2024
HTN
Hyperlipidemia
h/o bowel resection (volvulus 2012)
New mildly reduced EF 45 to 50% without evidence of volume overload, possible tachycardia mediated by echo 03/20/2025
Echo 07/2017: EF 50%, anteroseptal hypokinesis, moderate TR/MR, PA 35
Echo 06/19/19: with ejection fraction 40-45%. Appears global with hypokinesis of the anterior septum and basal anterior wall. This is in the setting of atrial fibrillation. Moderate to severe TR. At least Moderate MR. PA pressure 35�40 mmHg.
Echo 11/19/2024: EF 55 to 60%, normal diastolic function, normal RV size and function, moderate MR, moderate to severe TR with PAP 35 to 40 mmHg
Echo 03/20/2025: EF 45 to 50%, mild global hypokinesis, normal RV size and function, moderate to severe MR, severe TR with PAP 40 mmHg
Plan:
-Telemetry reviewed by me and patient remains in A-fib with RVR. Cardizem gtt stopped early 03/21/2025. BP 161/101. Similar issues overnight. Due to ongoing issues with sleep and delirium will order Lopressor 5 IV every 4 hours as needed HR
greater than 120.
-As patient's mental status improves hopefully she can resume her usual dosing of Lopressor 50 mg PO BID
-Patient with ongoing visual and auditory hallucinations into early 03/21/2025. Hospitalist note reviewed, patient received Ativan IV for MRI and there is also possible UTI.
-Neurology note reviewed, there was concern for possible TIA on admission, but they suspect rapid A-fib on a background of potential cognitive worsening in the last year. MRI of the brain without acute intracranial abnormality.
-Outpatient dose of Eliquis decreased to 2.5 mg BID this admission based on weight and age (age 84, Cre 0.9, wt 56.9 kg)
-Echo from 03/20/2025 reviewed and summarized by me above, EF is down to 45 to 50% that had previously been 55 to 60% compared to echo 11/19/2024, MR now moderate to severe compared to moderate previously and also TR is severe compared to moderate to
severe previously.
-Initial troponin undetectable and ECG without acute ischemic change although in A-fib with RVR. Will repeat ECG on 03/21/2025, ordered by me. There was a mild global hypokinesis on echo suggesting this may be tachycardia mediated.
HPI: Patient came to [facility] ER today with complaints of palpitations that started suddenly this morning and also mentioned that she had dysarthria yesterday and is now being admitted for possible TIA and A-fib and cardiology has been consulted.
Patient says that she has overall been overwhelmed since anniversary democr[employer] a week and a half ago, she describes having vivid dreams and not sleeping as well. She is also under a lot of stress helping to care for her . She went out to
lunch with a friend yesterday and driving home she had dysarthria which she could sense but her friend pointed out to her. No other symptoms. She says symptoms resolved and have not recurred. She wonders if she went into atrial fibrillation at
that time, but then describes sudden onset of pounding sensation in her chest that happened after taking a sip of coffee this morning. She has a history of paroxysmal atrial fibrillation dating as far back as at least 2018, but she does not
remember if she was symptomatic at that time. With all the commotion recently she missed at least 1 if not 2 doses of Eliquis in the last 2 weeks.
Progress Note - Salesperson Sheet Music
Subjective
Date of Service: March 21, 2025
Sleeping in bed, didn't fall asleep until 0330 this morning due to confusion and hallucinations
Objective
Labs:
03/20/25 04:45
03/20/25 04:45
Labs
Hgb 10.6 g/dL (12.0-16.0) L 03/20/25 04:45
Hct 32.2 % (37.0-47.0) L 03/20/25 04:45
Plt Count 219 10^3/uL (130-400) 03/20/25 04:45
PT 13.8 Sec (11.4-14.6) 03/19/25 11:12
INR 1.01 03/19/25 11:12
APTT 27.5 Sec (23.4-35.0) 03/19/25 11:12
Sodium 140 mmol/L (135-145) 03/20/25 04:45
Potassium 4.0 mmol/L (3.5-5.1) 03/20/25 04:45
BUN 19 mg/dl (7-17) H 03/20/25 04:45
Creatinine 0.8 mg/dL (0.6-1.0) 03/20/25 04:45
Glucose 94 mg/dl (70-99) 03/20/25 04:45
Troponins
03/19/25
11:12
Troponin I < 0.012
Vital Signs and I&O:
Vital Signs
Temp Pulse Resp BP Pulse Ox
97.8 F 115 16 161/101 99
03/21/25 07:25 03/21/25 07:25 03/21/25 07:25 03/21/25 07:25 03/21/25 07:25
Vital Signs
Temp Pulse Resp BP Pulse Ox
97.8 F 115 16 161/101 99
03/21/25 07:25 03/21/25 07:25 03/21/25 07:25 03/21/25 07:25 03/21/25 07:25
Physical Exam
Physical Exam
GEN: NAD.
LUNGS: RA.
CV: Afib with RVR on tele.
[2025-03-21] MEDS: CARDIZEM CD 120 MG PO (08:28)
[2025-03-21] MEDS: CYMBALTA DELAYED RELEASE 30 MG PO (08:29)
[2025-03-21] MEDS: PROTONIX 40 MG PO (08:29)
[2025-03-21] MEDS: VITAMIN B1 100 MG PO (08:29)
[2025-03-21] MEDS: LOPRESSOR 50 MG PO ×2 (08:30→20:35)
[2025-03-21] MEDS: ELIQUIS 2.5 MG PO ×2 (08:30→20:35)
[2025-03-21] MEDS: FEMARA 2.5 MG PO (08:32)
[2025-03-21] MEDS: LOW STRENGTH ASPIRIN 81 MG PO (08:33)
[2025-03-21] MEDS: ANCEF 5 IV ×3 (08:35→22:58)
--- NOTE | 2025-03-21 10:34 | W.PN.HOSP.TC ---
Today's Communication/Plan
-
continue with PT, patient prefers to go home
Bladder scan one time, reports taking Flomax in the past?
IV Ancef for possible UTI
c/w cardiac medications
Assessment / Plan
Assessment / Plan
Physical Exam
General: Well Developed, Well Nourished, No Apparent Distress, Comfortable and Conversant
HEENT: Normocephalic, Moist mucous membranes, Atraumatic, Nose Appears Normal, Ears Appear Normal and Hearing Impaired
Respiratory: Clear
Cardiac: S1/S2, Irregular Rhythm
GI: Soft, Non Tender, Non Distended and Normal Bowel Sounds
Genito -urinary: No Garcia, no CV tenderness.
Musculoskeletal: No Clubbing, No Cyanosis and No Edema
Neuro: Awake, Alert, AO to self and surroundings, forgetful, Nonfocal/grossly intact, no tremor.
Psych: Calm
# Toxic metabolic encephalopathy on mild cognitive impairment
Known to have memory impairment, also overwhelmed by her care
Treat UTI
# Suspect UTI
not toxic or septic
Ordered blood culture
Empiric IV Ancef
F/w urine culture
# An episode of slurred speech on 03/18, short time, recovered spontaneously
Doubt TIA , possible metabolic in origin.
MRI no acute stroke
Appreciate neurology help
# History of paroxysmal atrial fibrillation with RVR
Started on IV Cardizem gtt, now off
Started on oral Cardizem
Started on BB, increase the dose
She is not in distress, she denies sob or palpitations
Echo 11/19/2024: EF 55 to 60%, normal diastolic function, normal RV size and function, moderate MR, moderate to severe TR with PAP 35 to 40 mmHg
Appreciate cardiology help, primary telephoto engineer Dr Clemente.
# Chronic Anxiety
# Elevated liver enzymes, normal total bilirubin. Normal alkaline phosphatase
No abdominal pain or nausea, no GI symptoms
will need OP follow up
Hx of one glass of wine daily with dinner, given Thiamine.
HTN
Hyperlipidemia
h/o bowel resection (volvulus 2012)
Total time spent to see the patient, examine the patient, review data and lab result, discuss treatment plan with patient, daughter, nursing staff around 55 minutes
Anticipated Discharge: > 48 hours
Subjective/Interval History
-
Date of Service: March 21, 2025
No chest pain
No sob
Not confused but forgetful
Objective Data
-
Vital Signs:
Vital Signs
Temp Pulse Resp BP Pulse Ox
97.8 F 106 16 151/111 99
03/21/25 07:25 03/21/25 08:45 03/21/25 07:25 03/21/25 08:20 03/21/25 08:51
I&O
03/20/25 03/21/25 03/22/25
06:59 06:59 06:59
Intake Total 380 / 380
Balance 380 / 380
--- NOTE | 2025-03-21 15:33 | PTCARENOTE ---
Pt quite sleepy but easy to awaken. Pt very pleasant, oriented to month and year, place and person. NIHSS scored zero. No speech issues noted once pt had a drink of water. Pt OOB to bathroom with one assist, pt making no attempts to get up on her
own. Pt with one to one nursing coverage in her room. Telemetry continues to show atrial fib with rates around 90-120, SBP @130 after morning medications were given. Plan to monitor pt closely.
--- NOTE | 2025-03-21 18:47 | PTCARENOTE ---
~1530: Received handoff report from dayshift RN.
~[id number]: Patient AOx4, does state she still is having visual/auditory hallucinations, Afib 100s, SBP 120s, RA satting high 90s. 1:1 at bedside and bed alarm in place for safety. Hygiene care completed. All needs met at this time, call dong within
reach.
~9517-2037: Aox4, patint remains stable at this time. Visual and auditory hallucinations remain. 1:1 at bedside for safety. Handoff report given to nightshift RN.
--- NOTE | 2025-03-21 20:45 | PTCARENOTE ---
Addendum entered by Madison Chanel RN 03/22/25 00:42:
As evening went on, pt became more confused with an increase in visual and auditory hallucinations. 1:1 in place, bed alarm in place for pt safety. Pt remains pleasant. Resting now.
Original Note:
Received pt @ change of shift. AAOx3, daughter bedside. Aware of auditory and visual hallucinations that occurred over the last 36 hours. A-Fib on monitor, HR 110s-- other VSS. Pt much less confused @ change of shift. Discussed plan of care, using
the call dong, and increase of metoprolol/addition of PO carvedilol. Pt verbalizes understanding.
[2025-03-21] MEDS: LIPITOR 40 MG PO (22:58)
[2025-03-21] MEDS: ZETIA 10 MG PO (22:58)
[2025-03-21] MEDS: XALATAN OPHTHALMIC SOLUTION 1 DROP BOTH EYES (23:05)
[2025-03-22] VITALS (8 sets, daily range): BP systolic 97–146; BP diastolic 64–106; BMI 19.4
[2025-03-22] MEDS: PROTONIX 40 MG PO (08:43)
[2025-03-22] MEDS: LOW STRENGTH ASPIRIN 81 MG PO (08:43)
[2025-03-22] MEDS: FEMARA 2.5 MG PO (08:43)
[2025-03-22] MEDS: ELIQUIS 2.5 MG PO ×2 (08:43→19:09)
[2025-03-22] MEDS: CARDIZEM CD 120 MG PO (08:44)
[2025-03-22] MEDS: CYMBALTA DELAYED RELEASE 30 MG PO (08:45)
[2025-03-22] MEDS: LOPRESSOR 50 MG PO ×2 (08:45→19:09)
[2025-03-22] MEDS: ANCEF 5 IV ×2 (08:46→17:21)
[2025-03-22] MEDS: PAXIL PO ×2 (08:47→18:27)
[2025-03-22] MEDS: VITAMIN B1 100 MG PO (08:47)
--- NOTE | 2025-03-22 08:49 | W.PN.HOSP.TC ---
Today's Communication/Plan
-
.
Assessment / Plan
Assessment / Plan
Physical Exam
General: Well Developed, Well Nourished, No Apparent Distress, Comfortable and Conversant
HEENT: Normocephalic, Moist mucous membranes, Atraumatic, Nose Appears Normal, Ears Appear Normal and Hearing Impaired
Respiratory: Clear
Cardiac: S1/S2, Irregular Rhythm
GI: Soft, Non Tender, Non Distended and Normal Bowel Sounds
Genito -urinary: No Garcia, no CV tenderness.
Musculoskeletal: No Clubbing, No Cyanosis and No Edema
Neuro: Awake, Alert, AO to self and surroundings, forgetful (chronic), Nonfocal/grossly intact, no tremor.
Psych: Calm
# Toxic metabolic encephalopathy on mild cognitive impairment
Known to have memory impairment, also overwhelmed by her care
She feels much better. Daughter also reports improvement
No more visual hallucinations.
Treat UTI
# t UTI
not toxic or septic. No fever or leukocytosis. No dysuria.
Bladder scan no retention
f/w blood culture
Urine culture is pending, so far gram negative bacilli
Empiric IV Ancef
d/w pt and daughter, due to hx of UTI, will need urology in OP.
# An episode of slurred speech on 03/18, short time, recovered spontaneously
Doubt TIA , possible metabolic in origin.
MRI no acute stroke
Appreciate neurology help
# History of paroxysmal atrial fibrillation with RVR
Started on IV Cardizem gtt, now off
Started on oral Cardizem
Started on BB, increase the dose
She is not in distress, she denies sob or palpitations
Echo 11/19/2024: EF 55 to 60%, normal diastolic function, normal RV size and function, moderate MR, moderate to severe TR with PAP 35 to 40 mmHg
Appreciate cardiology help, primary manager garden Dr Clemente.
# Chronic Anxiety
# Elevated liver enzymes, normal total bilirubin. Normal alkaline phosphatase
No abdominal pain or nausea, no GI symptoms
will need OP follow up
Hx of one glass of wine daily with dinner, given Thiamine.
# essential HTN
# Hyperlipidemia
# h/o bowel resection (volvulus 2012)
Total time spent to see the patient, examine the patient, review data and lab result, discuss treatment plan with patient, daughter, nursing staff around 55 minutes
Anticipated Discharge: > 48 hours
Subjective/Interval History
-
Date of Service: March 22, 2025
No chest pain
No sob
Feels better, head is clear
Objective Data
-
Labs:
Laboratory Results
03/22/25
08:39
WBC Pending
Hgb Pending
Hct Pending
Plt Count Pending
Sodium Pending
Potassium Pending
Chloride Pending
Carbon Dioxide Pending
BUN Pending
Creatinine Pending
Glucose Pending
Calcium Pending
Total Bilirubin Pending
AST Pending
ALT Pending
Alkaline Phosphatase Pending
Vital Signs:
Vital Signs
Temp Pulse Resp BP Pulse Ox
97.9 F 96 20 142/104 98
03/22/25 08:28 03/22/25 08:45 03/22/25 08:28 03/22/25 08:45 03/22/25 08:28
I&O
03/21/25 03/22/25 03/23/25
06:59 06:59 06:59
Intake Total 1060 / 1060
Balance 1060 / 1060
[2025-03-22 09:08] LABS: ALT (SGPT) 56 U/L (0-35); AST (SGOT) 41 U/L (14-36); Albumin 3.8 g/dl (3.5-5.0); Alkaline Phosphatase 109 U/L (38-126); Blood Urea Nitrogen 16 mg/dl (7-17); Calcium 9.1 mg/dl (8.4-10.2); Carbon Dioxide 27 mmol/L (22-30); Chloride 110 mmol/L (98-107); Estimated Creatinine Clearance 43 ml/min; Glucose 103 mg/dl (70-99); Potassium 4.9 mmol/L (3.5-5.1); Sodium 143 mmol/L (135-145); Total Bilirubin 0.7 mg/dl (0.2-1.3); eGFR > 60.00
[2025-03-22 09:28] LABS: Hematocrit 35.6 % (37.0-47.0); Hemoglobin 11.6 g/dL (12.0-16.0); Mean Corp Hgb Conc. 32.6 g/dL (33.0-37.0); Mean Corpuscular Hgb 30.9 pg (27.0-31.0); Mean Corpuscular Volume 94.9 fL (81.0-99.0); Mean Platelet Volume 9.5 fL (7.4-10.4); Platelet Count 238 10^3/uL (130-400); Red Blood Cell Count 3.75 10^6/uL (4.20-5.40); Red Cell Dist. Width 14.4 % (11.5-14.5); White Blood Cell Count 7.8 10^3/uL (4.8-10.8)
--- NOTE | 2025-03-22 11:12 | W.PN.CARDCBS ---
Today's Communication / Plan
-
Ongoing treatment for UTI by primary service
Improving mentation
Rate control with oral medications considered uptitration for goal HR less than 110 while in AF
Impression / Plan
-
PCP: Dr. Bing Paz
Card: Dr. Clemente
Impression:
Admitted with paroxysmal atrial fibrillation with RVR and possible TIA 03/19/2025
Possible TIA, dysarthria symptoms on 03/18/2025 resolved spontaneously and no longer present 03/19/2025
Paroxysmal atrial fibrillation w/ RVR on arrival
Chronic Eliquis anticoagulation
Patient reports missing at least 1 if not 2 doses in the last 2 weeks
CAD
s/p LAD/RCA PCI 2014
Moderate to severe TR
moderate MR by echo 11/19/2024
HTN
Hyperlipidemia
h/o bowel resection (volvulus 2012)
New mildly reduced EF 45 to 50% without evidence of volume overload, possible tachycardia mediated by echo 03/20/2025
Echo 07/2017: EF 50%, anteroseptal hypokinesis, moderate TR/MR, PA 35
Echo 06/19/19: with ejection fraction 40-45%. Appears global with hypokinesis of the anterior septum and basal anterior wall. This is in the setting of atrial fibrillation. Moderate to severe TR. At least Moderate MR. PA pressure 35�40 mmHg.
Echo 11/19/2024: EF 55 to 60%, normal diastolic function, normal RV size and function, moderate MR, moderate to severe TR with PAP 35 to 40 mmHg
Echo 03/20/2025: EF 45 to 50%, mild global hypokinesis, normal RV size and function, moderate to severe MR, severe TR with PAP 40 mmHg
Plan:
-Telemetry reviewed by me and patient remains in A-fib with RVR. Cardizem gtt stopped early 03/21/2025. BP 161/101. Similar issues overnight. Due to ongoing issues with sleep and delirium will order Lopressor 5 IV every 4 hours as needed HR
greater than 120; this is improving; HR 90-110s with oral metoprolol and diltiazem; consider increased for improved rate control if needed
-Patient with ongoing visual and auditory hallucinations into early 03/21/2025. Hospitalist note reviewed, patient received Ativan IV for MRI and there is also possible UTI.
-Neurology note reviewed, there was concern for possible TIA on admission, but they suspect rapid A-fib on a background of potential cognitive worsening in the last year. MRI of the brain without acute intracranial abnormality.
-Outpatient dose of Eliquis decreased to 2.5 mg BID this admission based on weight and age (age 84, Cre 0.9, wt 56.9 kg)
-Echo from 03/20/2025 reviewed and summarized by me above, EF is down to 45 to 50% that had previously been 55 to 60% compared to echo 11/19/2024, MR now moderate to severe compared to moderate previously and also TR is severe compared to moderate to
severe previously.
-Initial troponin undetectable and ECG without acute ischemic change although in A-fib with RVR. There was a mild global hypokinesis on echo suggesting this may be tachycardia mediated.
-Ongoing treatment for UTI by primary service
HPI: Patient came to [facility] ER today with complaints of palpitations that started suddenly this morning and also mentioned that she had dysarthria yesterday and is now being admitted for possible TIA and A-fib and cardiology has been consulted.
Patient says that she has overall been overwhelmed since [employer] a week and a half ago, she describes having vivid dreams and not sleeping as well. She is also under a lot of stress helping to care for her . She went out to
lunch with a friend yesterday and driving home she had dysarthria which she could sense but her friend pointed out to her. No other symptoms. She says symptoms resolved and have not recurred. She wonders if she went into atrial fibrillation at
that time, but then describes sudden onset of pounding sensation in her chest that happened after taking a sip of coffee this morning. She has a history of paroxysmal atrial fibrillation dating as far back as at least 2018, but she does not
remember if she was symptomatic at that time. With all the commotion recently she missed at least 1 if not 2 doses of Eliquis in the last 2 weeks.
Progress Note - Bedspread Folder
Subjective
Date of Service: March 22, 2025
Routine exam this morning. No acute events overnight. Patient resting comfortably in chair reporting no symptoms. Patient has any chest pain, shortness breath, palpitations, lightheadedness, dizziness, or weakness. Patient
Objective
Labs:
03/22/25 08:39
03/22/25 08:39
Labs
Hgb 11.6 g/dL (12.0-16.0) L 03/22/25 08:39
Hct 35.6 % (37.0-47.0) L 03/22/25 08:39
Plt Count 238 10^3/uL (130-400) 03/22/25 08:39
PT 13.8 Sec (11.4-14.6) 03/19/25 11:12
INR 1.01 03/19/25 11:12
APTT 27.5 Sec (23.4-35.0) 03/19/25 11:12
Sodium 143 mmol/L (135-145) 03/22/25 08:39
Potassium 4.9 mmol/L (3.5-5.1) 03/22/25 08:39
BUN 16 mg/dl (7-17) 03/22/25 08:39
Creatinine 0.9 mg/dL (0.6-1.0) 03/22/25 08:39
Glucose 103 mg/dl (70-99) H 03/22/25 08:39
Troponins
03/19/25
11:12
Troponin I < 0.012
Vital Signs and I&O:
Vital Signs
Temp Pulse Resp BP Pulse Ox
97.9 F 103 20 142/104 98
03/22/25 08:28 03/22/25 09:15 03/22/25 08:28 03/22/25 08:45 03/22/25 08:30
Vital Signs
Temp Pulse Resp BP Pulse Ox
97.9 F 103 20 142/104 98
03/22/25 08:28 03/22/25 09:15 03/22/25 08:28 03/22/25 08:45 03/22/25 08:30
Intake & Output
03/20/25 03/21/25 03/22/25 03/23/25
06:59 06:59 06:59 06:59
Intake Total 1060 / 1060
Balance 1060 / 1060
Physical Exam
Physical Exam
GEN: NAD. Awake, alert, oriented x3
HEENT: MMM
LUNGS: CTA B/L without wheeze
CV: Irreg irreg, S1/S2, no murmur
EXT: No clubbing, cyanosis, or edema
NEURO: Gross non-focal
SKIN: Warm, dry, no rash
Telemetry shows AF improving rate
--- NOTE | 2025-03-22 19:22 | PTCARENOTE ---
~[id number]: Handoff report received from nightshift RN. Pt AOx4 however does have auditory and visual hallucinations that persist. 1:1 at bedside for safety as well as bed and chair alarms, Afib on tele 100s, SBP 140s, RA satting mid to high 90s. Pt
denies pain at this time. OOB with Ax1 and walker to bathroom. Hygiene care completed. All needs met at this time, call dong within reach.
~[id number]: Urine culture resulted, + for gram negative bacilli.
~3841-6004: Patient resting in room. slept a good part of the day OOB in the chair. Very cooperative and AOx3. All needs met at this time, call dong within reach.
~[id number]: Handoff report given to nightshift RN. Patient in stable condition.
[2025-03-22] MEDS: ZETIA 10 MG PO (22:22)
[2025-03-22] MEDS: LIPITOR 40 MG PO (22:22)
[2025-03-22] MEDS: PAXIL 30 MG PO (22:22)
[2025-03-22] MEDS: XALATAN OPHTHALMIC SOLUTION 1 DROP BOTH EYES (22:23)
--- NOTE | 2025-03-22 23:46 | PTCARENOTE ---
Assumed care of patient at change of shift. Patient denies any hallucinations and answered the orientation q's appropriately. Patient rang for assistance when requiring to get OOB. Ambulated w/ RW and requires minimal assist. Denies any dizziness.
Tele monitor remains Afib. Denies any pain or SOB. Bed alarm active, call dong in reach.
[2025-03-23] VITALS (14 sets, daily range): BP systolic 90–132; BP diastolic 58–117; PULSE 79–101; O2SAT 98; BMI 19.6
[2025-03-23] MEDS: ANCEF 5 IV ×4 (00:22→22:48)
[2025-03-23 04:35] LABS: Hematocrit 36.3 % (37.0-47.0); Hemoglobin 12.2 g/dL (12.0-16.0); Mean Corp Hgb Conc. 33.6 g/dL (33.0-37.0); Mean Corpuscular Volume 95.3 fL (81.0-99.0); Mean Platelet Volume 9.7 fL (7.4-10.4); Platelet Count 266 10^3/uL (130-400); Red Blood Cell Count 3.81 10^6/uL (4.20-5.40); Red Cell Dist. Width 14.2 % (11.5-14.5); White Blood Cell Count 9.4 10^3/uL (4.8-10.8)
[2025-03-23 05:14] LABS: ALT (SGPT) 36 U/L (0-35); AST (SGOT) 30 U/L (14-36); Albumin 3.8 g/dl (3.5-5.0); Alkaline Phosphatase 100 U/L (38-126); Blood Urea Nitrogen 20 mg/dl (7-17); Carbon Dioxide 26 mmol/L (22-30); Chloride 108 mmol/L (98-107); Estimated Creatinine Clearance 49 ml/min; Glucose 100 mg/dl (70-99); Sodium 140 mmol/L (135-145); Total Bilirubin 0.6 mg/dl (0.2-1.3); Total Protein 5.9 g/dl (6.3-8.2); eGFR > 60.00
[2025-03-23] MEDS: FEMARA 2.5 MG PO (08:11)
[2025-03-23] MEDS: LOPRESSOR 50 MG PO ×2 (08:11→21:30)
[2025-03-23] MEDS: CYMBALTA DELAYED RELEASE 30 MG PO (08:11)
[2025-03-23] MEDS: PROTONIX 40 MG PO (08:11)
[2025-03-23] MEDS: CARDIZEM CD 120 MG PO (08:12)
[2025-03-23] MEDS: ELIQUIS 2.5 MG PO ×2 (08:12→21:28)
[2025-03-23] MEDS: LOW STRENGTH ASPIRIN 81 MG PO (08:13)
--- NOTE | 2025-03-23 08:34 | W.PN.CARDCBS ---
Today's Communication / Plan
-
Remains in AFib, rate controlled. For now would continue rate control strategy and consider amiodarone for recurrent rapid HRs.
Cont Metoprolol and Cardizem.
Will consider outpt cardioversion if remains in AFib
Cont Eliquis intermediate given likely TIA and PAFib.
Eliquis dose was lowered this admit based on her age and wt to 2.5 mg BID; her bleeding risk is now reduced.
Repeat echo as outpt after caodaism of sinus rhythm. Echo reviewed from March 2025. EF is now 45-50% with mod to severe MR and severe TR; slight increase in MR and TR from prior.
Neuro input appreciated, MRI of the brain without acute intracranial abnormality.
Cont med tx of nonMI troponin
Will arrange outpt follow up
Discussed with nursing.
Please recall if needed.
Impression / Plan
-
.
PCP: Dr. Bing Paz
Card: Dr. Clemente
Impression:
Admitted with paroxysmal atrial fibrillation with RVR and possible TIA 03/19/2025
Possible TIA, dysarthria symptoms on 03/18/2025 resolved spontaneously and no longer present 03/19/2025
Paroxysmal atrial fibrillation w/ RVR on arrival
Chronic Eliquis anticoagulation
Patient reports missing at least 1 if not 2 doses in the last 2 weeks
CAD
s/p LAD/RCA PCI 2014
Moderate to severe TR
moderate MR by echo 11/19/2024
HTN
Hyperlipidemia
h/o bowel resection (volvulus 2012)
New mildly reduced EF 45 to 50% without evidence of volume overload, possible tachycardia mediated by echo 03/20/2025
Echo 07/2017: EF 50%, anteroseptal hypokinesis, moderate TR/MR, PA 35
Echo 06/19/19: with ejection fraction 40-45%. Appears global with hypokinesis of the anterior septum and basal anterior wall. This is in the setting of atrial fibrillation. Moderate to severe TR. At least Moderate MR. PA pressure 35�40 mmHg.
Echo 11/19/2024: EF 55 to 60%, normal diastolic function, normal RV size and function, moderate MR, moderate to severe TR with PAP 35 to 40 mmHg
Echo 03/20/2025: EF 45 to 50%, mild global hypokinesis, normal RV size and function, moderate to severe MR, severe TR with PAP 40 mmHg
Plan:
Remains in AFib, rate controlled. For now would continue rate control strategy and consider amiodarone for recurrent rapid HRs.
Cont Metoprolol and Cardizem.
Will consider outpt cardioversion if remains in AFib
Cont Eliquis intermediate given likely TIA and PAFib.
Eliquis dose was lowered this admit based on her age and wt to 2.5 mg BID; her bleeding risk is now reduced.
Repeat echo as outpt after caodaism of sinus rhythm. Echo reviewed from March 2025. EF is now 45-50% with mod to severe MR and severe TR; slight increase in MR and TR from prior.
Neuro input appreciated, MRI of the brain without acute intracranial abnormality.
Cont med tx of nonMI troponin
Will arrange outpt follow up
Discussed with nursing.
Please recall if needed.
HPI: Patient came to [facility] today with complaints of palpitations that started suddenly this morning and also mentioned that she had dysarthria yesterday and is now being admitted for possible TIA and A-fib and cardiology has been consulted.
Patient says that she has overall been overwhelmed since [employer] republic[employer] a week and a half ago, she describes having vivid dreams and not sleeping as well. She is also under a lot of stress helping to care for her . She went out to
lunch with a friend yesterday and driving home she had dysarthria which she could sense but her friend pointed out to her. No other symptoms. She says symptoms resolved and have not recurred. She wonders if she went into atrial fibrillation at
that time, but then describes sudden onset of pounding sensation in her chest that happened after taking a sip of coffee this morning. She has a history of paroxysmal atrial fibrillation dating as far back as at least 2018, but she does not
remember if she was symptomatic at that time. With all the commotion recently she missed at least 1 if not 2 doses of Eliquis in the last 2 weeks.
Progress Note - Licensed Sales Assistant
Subjective
Date of Service: March 23, 2025
Pt seen and examined. No cp or dyspnea
Objective
Labs:
03/23/25 04:17
03/23/25 04:17
Labs
Hgb 12.2 g/dL (12.0-16.0) 03/23/25 04:17
Hct 36.3 % (37.0-47.0) L 03/23/25 04:17
Plt Count 266 10^3/uL (130-400) 03/23/25 04:17
PT 13.8 Sec (11.4-14.6) 03/19/25 11:12
INR 1.01 03/19/25 11:12
APTT 27.5 Sec (23.4-35.0) 03/19/25 11:12
Sodium 140 mmol/L (135-145) 03/23/25 04:17
Potassium 4.0 mmol/L (3.5-5.1) 03/23/25 04:17
BUN 20 mg/dl (7-17) H 03/23/25 04:17
Creatinine 0.8 mg/dL (0.6-1.0) 03/23/25 04:17
Glucose 100 mg/dl (70-99) H 03/23/25 04:17
Vital Signs and I&O:
Vital Signs
Temp Pulse Resp BP Pulse Ox
98.4 F 97 20 127/83 96
03/23/25 07:07 03/23/25 04:06 03/23/25 07:07 03/23/25 04:06 03/23/25 07:07
Vital Signs
Temp Pulse Resp BP Pulse Ox
98.4 F 97 20 127/83 96
03/23/25 07:07 03/23/25 04:06 03/23/25 07:07 03/23/25 04:06 03/23/25 07:07
Intake & Output
03/21/25 03/22/25 03/23/25 03/24/25
06:59 06:59 06:59 06:59
Intake Total 1060 / 1060 490 / 490
Balance 1060 / 1060 490 / 490
Physical Exam
Physical Exam
General: No acute distress, AAOX3
Neck: Negative JVD
Heart: Irreguarly irregular, Negative S3 positive S1/S2, Negative S4, No murmur
Lungs: CTA b/l, negative wheezes/rales/rhonchi
Abd: Positive BS, NT/ND, neg rebound/rigidity/guarding
Ext: Negative cyanosis/clubbing/edema
Neuro: nonfocal
--- NOTE | 2025-03-23 08:55 | W.PN.HOSP.TC ---
Today's Communication/Plan
-
Acute rehab placement consideration -- but now patient leaning towards home with private caregivers
Anticipate discharge tomorrow
See below
Assessment / Plan
Assessment / Plan
Physical Exam
General: Well Developed, Well Nourished, No Apparent Distress, Comfortable and Conversant
HEENT: Normocephalic, Moist mucous membranes, Atraumatic, Nose Appears Normal, Ears Appear Normal and Hearing Impaired
Respiratory: Clear
Cardiac: S1/S2, Irregular Rhythm
GI: Soft, Non Tender, Non Distended and Normal Bowel Sounds
Genito -urinary: No Garcia, no CV tenderness.
Musculoskeletal: No Clubbing, No Cyanosis and No Edema
Neuro: Awake, Alert, AO to self and surroundings, forgetful (chronic), Nonfocal/grossly intact, no tremor.
Psych: Calm
Assessment/Plan
# Toxic metabolic encephalopathy on mild cognitive impairment
Known to have memory impairment, also overwhelmed by her care
She feels much better. Daughter also reports improvement
No more visual hallucinations.
Treat UTI
# t UTI
not toxic or septic. No fever or leukocytosis. No dysuria.
Bladder scan no retention
f/w blood culture -- no growth to date
Urine culture showed E. coli
Empiric IV Ancef, will transition to PO
d/w pt and daughter, due to hx of UTI, will need urology in OP.
# An episode of slurred speech on 03/18, short time, recovered spontaneously
Doubt TIA , possible metabolic in origin.
MRI no acute stroke
Appreciate neurology help -- neurology felt this was metabolic in origin
#Paroxysmal atrial fibrillation with RVR
Started on IV Cardizem gtt, now off
Started on oral Cardizem
Continue Metoprolol
She is not in distress, she denies sob or palpitations
Echo 11/19/2024: EF 55 to 60%, normal diastolic function, normal RV size and function, moderate MR, moderate to severe TR with PAP 35 to 40 mmHg
Appreciate cardiology help, primary insulator tester Dr Clemente.
In the future: Amiodarone for recurrent rapid HRs, and consideration for cardioversion if patient remains in Atrial Fibrillation
# Chronic Anxiety
# Elevated liver enzymes, normal total bilirubin. Normal alkaline phosphatase
No abdominal pain or nausea, no GI symptoms
will need OP follow up
Hx of one glass of wine daily with dinner, given Thiamine.
# essential HTN
# Hyperlipidemia
# h/o bowel resection (volvulus 2012)
Anticipated Discharge: Within 24 hours
Subjective/Interval History
-
Date of Service: March 23, 2025
Patient was seen and examined. She reported overall feeling better, but still weak.
Objective Data
-
Labs:
Laboratory Results
03/23/25
04:17
WBC 9.4
Hgb 12.2
Hct 36.3 L
Plt Count 266
Sodium 140
Potassium 4.0
Chloride 108 H
Carbon Dioxide 26
BUN 20 H
Creatinine 0.8
Glucose 100 H
Calcium 9.0
Total Bilirubin 0.6
AST 30
ALT 36 H
Alkaline Phosphatase 100
Vital Signs:
Vital Signs
Temp Pulse Resp BP Pulse Ox
98.4 F 97 20 127/83 96
03/23/25 07:07 03/23/25 04:06 03/23/25 07:07 03/23/25 04:06 03/23/25 07:07
I&O
03/22/25 03/23/25 03/24/25
06:59 06:59 06:59
Intake Total 1060 / 1060 490 / 490
Balance 1060 / 1060 490 / 490
--- NOTE | 2025-03-23 11:19 | PTCARENOTE ---
Pt nauseous this am, did not want breakfast. This improved on it's own and she now denies nausea
--- NOTE | 2025-03-23 15:46 | CM ---
Reviewed chart.. Met with Mrs. carrera and her daughter Deborah to review discharge plans. Reviewed teams recommendations for SNF/Rehab. She states they have has some bad experiences with SNF/Rehab. in the past. They are leaning toward having her go
home with increased private caregiver help. Currently they have a person who goes in on Sunday and for three hours from 9:00 a.m. and 12:00 noon. Her spouse has been contacting [facility] to supplement the other days with some
private help. We also reviewed [facility]NA Services and they are agreeable to having [facility].. [facility]. Referral sent. Medial work-up in progress. The discharge plan is to return home with
her spouse, private caregivers and [facility] when medically stable.
[2025-03-23] MEDS: FLUSH (NSS) 1 FLUSH IV (16:35)
[2025-03-23] MEDS: ZETIA 10 MG PO (21:28)
[2025-03-23] MEDS: LIPITOR 40 MG PO (21:30)
[2025-03-23] MEDS: PAXIL 30 MG PO (21:30)
[2025-03-23] MEDS: XALATAN OPHTHALMIC SOLUTION 1 DROP BOTH EYES (21:31)
--- NOTE | 2025-03-23 22:28 | PTCARENOTE ---
Assumed care of the pt @ 1900. Pt is AAOX3 forgetful at times A fib on the monitor VSS bed alarm in use. Call dong within reach
--- NOTE | 2025-03-23 23:31 | PTCARENOTE ---
Assumed care of the pt @ 1900. Pt is AAOx3 forgetful at times A fib on the monitor vss bed alarm in use call dong within reach.
[2025-03-24] VITALS (8 sets, daily range): BP systolic 97–137; BP diastolic 65–93; BMI 19.8
[2025-03-24 02:46] LABS: Hematocrit 35.1 % (37.0-47.0); Hemoglobin 11.5 g/dL (12.0-16.0); Mean Corp Hgb Conc. 32.8 g/dL (33.0-37.0); Mean Corpuscular Volume 94.6 fL (81.0-99.0); Mean Platelet Volume 9.5 fL (7.4-10.4); Platelet Count 267 10^3/uL (130-400); Red Blood Cell Count 3.71 10^6/uL (4.20-5.40); Red Cell Dist. Width 14.2 % (11.5-14.5); White Blood Cell Count 7.3 10^3/uL (4.8-10.8)
[2025-03-24 03:08] LABS: ALT (SGPT) 24 U/L (0-35); AST (SGOT) 25 U/L (14-36); Albumin 3.7 g/dl (3.5-5.0); Alkaline Phosphatase 96 U/L (38-126); Blood Urea Nitrogen 23 mg/dl (7-17); Calcium 9.2 mg/dl (8.4-10.2); Carbon Dioxide 28 mmol/L (22-30); Chloride 108 mmol/L (98-107); Estimated Creatinine Clearance 43 ml/min; Glucose 97 mg/dl (70-99); Potassium 3.9 mmol/L (3.5-5.1); Sodium 142 mmol/L (135-145); Total Bilirubin 0.4 mg/dl (0.2-1.3); Total Protein 5.8 g/dl (6.3-8.2); eGFR > 60.00
[2025-03-24] MEDS: CARDIZEM CD 120 MG PO (08:23)
[2025-03-24] MEDS: FEMARA 2.5 MG PO (08:23)
[2025-03-24] MEDS: LOPRESSOR 50 MG PO (08:23)
[2025-03-24] MEDS: ELIQUIS 2.5 MG PO (08:23)
[2025-03-24] MEDS: ANCEF 5 IV ×2 (08:23→15:25)
[2025-03-24] MEDS: CYMBALTA DELAYED RELEASE 30 MG PO (08:23)
[2025-03-24] MEDS: LOW STRENGTH ASPIRIN 81 MG PO (08:23)
[2025-03-24] MEDS: PROTONIX 40 MG PO (08:23)
--- NOTE | 2025-03-24 08:55 | PTCARENOTE ---
Assumed care at 0700. Patient AO x3. A-fib HR 80's, irregular. Denies pain or shortness of breath, lungs CTA. Assisted to the bathroom with rolling walker to void. Using call dong for assistance out of bed, bed alarm audible
--- NOTE | 2025-03-24 10:16 | PN.CDI ---
CDI
- -
CDI:
Physician Documentation Request
Admit Date: 03/19/25 15:07
Dear Doctor Batsheva,
Patient admitted for change of mental status.
Please review the following and provide your response in the progress notes.
Clinical Indicators:
Height: 5' 7'
Weight: 116 lbs
BMI: 18.3
If possible, please provide an associated diagnosis related to the abnormal BMI, such as:
Underweight
Cachectic
BMI is not significant
Other
BMI < or = to 19.9
Underweight
Weight Loss
Cachectic
Anorexia
Use of terms such as suspected, likely, concern for, or probable (associated with a specific diagnosis that is being evaluated, monitored, or treated as if it exists) are acceptable and can be coded in the inpatient setting, when documented at the
time of discharge.
Thank you,
Genevieve Post RN, BSN
CDI Specialist
Available via [place] text
Please use your independent medical judgment in providing your response.
--- NOTE | 2025-03-24 12:32 | CM ---
Reviewed chart. Met with Mrs. Clark and her daughter to review discharge plans. She states she is feeling well and maybe able to go home soon. [facility] abd [facility]. Family "Rose"also has made arrangements for private caregivers from [facility] . [facility] will be coming Sunday, Sunday and Sunday from 9:00 a.m. to 12:00 p.m. They are having their private help on Sunday and from 9:00 a.m. to 12:00
p.m. Family will be available to assist on the weekends. Prior to admission admission she resides with her spouse in an [place] [facility] community. Prior to admission she was independent with ambulation and adls. She has a walker, rollator,
single point cane and raised toilet seat at home. She has a prescription plan and uses [facility] pharmacy. Medical work-up in progress. The discharge plan is to return home with her spouse, [facility], Private caregivers and family support when
medically stable.
--- NOTE | 2025-03-24 14:06 | W.PN.HOSP.TC ---
Today's Communication/Plan
-
Discharge today
Assessment / Plan
Assessment / Plan
Physical Exam
General: Well Developed, Well Nourished, No Apparent Distress, Comfortable and Conversant
HEENT: Normocephalic, Moist mucous membranes, Atraumatic, Nose Appears Normal, Ears Appear Normal and Hearing Impaired
Respiratory: Clear
Cardiac: S1/S2, Irregular Rhythm
GI: Soft, Non Tender, Non Distended and Normal Bowel Sounds
Musculoskeletal: No Cyanosis and No Edema
Neuro: Awake, Alert, AO to self and surroundings, forgetful (chronic), Nonfocal/grossly intact, no tremor.
Psych: Calm
Assessment/Plan
# Toxic metabolic encephalopathy on mild cognitive impairment
Known to have memory impairment, also overwhelmed by her care
She feels much better. Daughter also reports improvement
No more visual hallucinations.
Treat UTI
#E. coli UTI
not toxic or septic. No fever or leukocytosis. No dysuria.
Bladder scan no retention
f/w blood culture -- no growth to date
Urine culture showed E. coli
Empiric IV Ancef, will transition to Cefdinir 300 mg Q12H for [address] Bolaños d/w pt and daughter, due to hx of UTI, will need urology in OP.
# An episode of slurred speech on 03/18, short time, recovered spontaneously -- suspected secondary to cardiac dysrhythmia on a background of potential cognitive worsening in the past year
Doubt TIA
MRI no acute stroke
Appreciate neurology help -- neurology felt this was metabolic in origin
Continue apixaban
Outpatient neuropsychological testing
Provide patient with thiamine to ensure adequate levels
Continue duloxetine with suggestion of increased dosing in hopes of reducing the patient's daily headaches
Continue at home Ezetimibe and evolocumab
#Paroxysmal atrial fibrillation with RVR
Started on IV Cardizem gtt, now off
Continue Metoprolol and Cardizem
Continue Eliquis 2.5 mg BID
She is not in distress, she denies sob or palpitations
Echo 11/19/2024: EF 55 to 60%, normal diastolic function, normal RV size and function, moderate MR, moderate to severe TR with PAP 35 to 40 mmHg
Appreciate cardiology help, primary wireless sales consultant Dr Clemente.
In the future: Amiodarone for recurrent rapid HRs, and consideration for cardioversion if patient remains in Atrial Fibrillation
Follow-up with Dr. Clemente outpatient
#CAD s/p LAD/RCA PCI 2014
#Moderate to severe TR
#Moderate MR by echo 11/19/2024
#New mildly reduced EF 45 to 50% without evidence of volume overload, possible tachycardia mediated by echo 03/20/2025
# Chronic Anxiety
# Elevated liver enzymes - RESOLVED
Recheck CMP outpatient
No abdominal pain or nausea, no GI symptoms
will need OP follow up
Hx of one glass of wine daily with dinner, given Thiamine.
# Essential HTN
# Hyperlipidemia
# h/o bowel resection (volvulus 2012)
#Underweight
More than 30 minutes spent in discharge including
Final examination of the patient
Summarizing hospital stay
Instructions for continuing care to all relevant caregivers
Preparation of discharge records, prescriptions, and referral forms
Total time spent (in minutes): 36
Anticipated Discharge: Today
Subjective/Interval History
-
Date of Service: March 24, 2025
Patient was seen and examined. She denied any new symptoms or complaints. She would like to go home today.
Objective Data
-
Labs:
Laboratory Results
03/24/25
02:13
WBC 7.3
Hgb 11.5 L
Hct 35.1 L
Plt Count 267
Sodium 142
Potassium 3.9
Chloride 108 H
Carbon Dioxide 28
BUN 23 H
Creatinine 0.9
Glucose 97
Calcium 9.2
Total Bilirubin 0.4
AST 25
ALT 24
Alkaline Phosphatase 96
Vital Signs:
Vital Signs
Temp Pulse Resp BP Pulse Ox
97.8 F 72 18 109/72 99
03/24/25 11:30 03/24/25 12:00 03/24/25 11:30 03/24/25 11:29 03/24/25 11:30
I&O
03/23/25 03/24/25 03/25/25
06:59 06:59 06:59
Intake Total 490 / 490 480 / 480
Balance 490 / 490 480 / 480
--- NOTE | 2025-03-24 16:10 | W.DCSUMMARY ---
Discharge Summary
Discharge Data
Date of Admission: 03/19/25
Date of Discharge: 03/24/25
Total time spent discharging patient (in min): 36
-
Pending Results: Yes
Additional Pending Results:
Final results of microbiology labs/blood culture results from hospitalization
Hospital Course
84-year-old female with past medical history of paroxysmal atrial fibrillation, hypertension, hyperlipidemia, HFpEF, ischemic cardiomyopathy and right breast cancer, who presented to the emergency room for evaluation of episode of slurred speech and
palpitations. Patient was started on Cardizem Drip for her symptomatic atrial fibrillation with rapid ventricular response. CTA of the head and neck showed high-grade stenosis at the origin of the left vertebral artery; 40% stenosis of the right
internal carotid artery; and small chronic lacunar infarct of the right internal capsule; occlusion of the right vertebral artery. Neurology was consulted and mentioned that patient's abrupt onset of dysarthria during atrial fibrillation rapid
ventricular response and prior suggestion of chronic daily headache as well as cognitive issues seemed to be most likely secondary to cardiac dysrhythmia on a background of potential cognitive worsening in the past year. Patient was continued on
Eliquis but the dose was decreased due to her age and weight, in order to decrease bleeding risk. Brain MRI, as per radiologist, showed chronic senescent changes, but no acute intracranial abnormality. Patient was started on antibiotics for urinary
tract infection. Beta ally dose was increased and she was weaned off Cardizem Drip. She was continued on oral Cardizem. Patient's condition improved and she was stable for discharge.
Discharge Plan
-
Patient Disposition: Home with Home Care
Discharge Diagnosis/Procedures: #Toxic metabolic encephalopathy on mild cognitive impairment
#E. Coli Urinary Tract Infection
#Episode of slurred speech on 03/18/25, short time, recovered spontaneously -- suspected secondary to cardiac dysrhythmia on a background of potential cognitive worsening in the past year
#Paroxysmal atrial fibrillation with Rapid Ventricular Response
#Coronary Artery Disease status post LAD/RCA PCI 2014
#Moderate to severe tricuspid regurgitation
#Moderate mitral regurgitation by echocardiogram 11/19/2024
#New mildly reduced ejection fraction 45 to 50% without evidence of volume overload, possible tachycardia mediated by echo 03/20/2025
#Chronic Anxiety
#Elevated liver enzymes - RESOLVED
#Essential Hypertension
#Hyperlipidemia
#History of bowel resection (volvulus 2012)
#Underweight
CT angiogram of the head and neck with and without intravenous contrast (as per radiologist's report):
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
#Small chronic lacunar infarct right internal capsule.
#Occlusion of the right vertebral artery, indeterminate acuity.
#Approximately 40% stenosis right internal carotid artery.
Condition: Good
Diet: Low Fat, Low Cholesterol, Low Sodium and Restrict fluids to 64 oz
Activity: With assistance
Driving Restrictions: No driving
Blood Work: CBC, CMP and Magnesium with your primary care provider's office in 3 to 4 days
Other Services: VN
Specialty Instructions: Weigh Daily- Call MD for wt gain/loss 3 lbs overnight/5 lbs in 1 week
Referrals:
[facility] [Outside]
Nita Cardona CRNP [Specified Professional Personl, Neurology] - in three to four weeks
Referral Note: Vertebral Artery Stenosis on hospital imaging. Outpatient neuropsychological testing
Fabian Clemente DO [Active, Cardiology] - 04/14/25 11:20 am
Referral Note: You have cardiology follow up with Dr. Clemente on April 14 at 11:20 [address] in [address] in the [place]. If you are unable to make this appointment please call [phone] to reschedule
Bing Paz MD [Family Provider, Internal Medicine] - in less than 1 week
Referral Note: Hospital Follow-Up
Austin Blanchard MD [Active, Urology] - in one to two months
Referral Note: Recurrent UTIs
Additional Discharge Medication Instructions: Eliquis (Apixaban) dose has been reduced to 2.5 mg BID (given your low weight and age above 80 years old) -- new dose has been sent to your pharmacy.
Metoprolol Tartrate has been increased to 50 mg BID -- new dose has been sent to your pharmacy.
Diltiazem is a new medication.
Cefdinir is a new medication.
Thiamine Vitamin is a new medication.
Calcium carbonate is on hold --- review with your primary care provider whether or not you should continue taking this medication.
Prescriptions:
New
diltiazem HCl 120 mg Capsule,Extended Release 24hr
120 mg PO DAILY Qty: 30 1RF
cefdinir 300 mg capsule
300 mg PO Q12H Qty: 7 0RF
Eliquis 2.5 mg Tablet
2.5 mg PO BID Qty: 60 1RF
metoprolol tartrate 25 mg Tablet
50 mg PO BID Qty: 120 1RF
thiamine HCl (vitamin B1) 100 mg tablet
100 mg PO DAILY Qty: 20 0RF
Continued
pantoprazole 40 MG tablet,delayed release (DR/EC)
40 mg PO DAILY
atorvastatin 40 MG tablet
40 mg PO HS
letrozole 2.5 mg Tablet
2.5 mg PO DAILY
ezetimibe [Zetia] 10 mg Tablet
10 mg PO HS
Lumigan 0.01 % Drops
1 drp BOTH EYES DAILY
Vitamin B-12 50 mcg Tablet
50 mcg PO BID
paroxetine HCl 30 mg tablet
30 mg PO DAILY
aspirin 81 mg Tablet
81 mg PO DAILY
duloxetine 30 mg capsule,delayed release(DR/EC)
30 mg PO DAILY
Repatha SureClick 140 mg/mL pen injector
140 mg SC ONCE
Held
calcium carbonate 500 mg calcium (1,250 mg) Tablet
1,000 mg PO DAILY
Hold Instructions: Resume on 03/31/25. Recheck your calcium outpatient with your primary care provider and ask your primary care provider whether or not you should resume this medication.
Discontinued
Eliquis 5 MG tablet
5 mg PO BID
metoprolol tartrate 25 MG tablet
12.5 mg PO BID
Discharge Orders:
Discharge Patient (As Directed); Ordered 03/24/25
Ordered By: Arsen Herman
Discharge Date and Time
Discharge Date/Time: 03/24/25 17:47
Print Language: KHMER
--- NOTE | 2025-03-24 17:05 | PTCARENOTE ---
Patient discharged to home with daughter. Discharge teaching provided and they verbalized understanding. Patient IV and telemetry removed
== END 2025-03-24 17:47 | disposition home health service (06) | DRG 689 ==
LOC: IVU 15:07
PROVIDERS: Internal Medicine; Internal Medicine Cardiovascular Disease; Nurse Practitioner Family; Registered Nurse; ADMITTING PHYSICIAN Hospitalist; ATTENDING PHYSICIAN Hospitalist; CONSULT PHYSICIAN Internal Medicine Cardiovascular Disease; CONSULT PHYSICIAN Psychiatry & Neurology Neurology; EMERGENCY PHYSICIAN Student in an Organized Health Care Education/Training Program; FAMILY PHYSICIAN Student in an Organized Health Care Education/Training Program
DX: N39.0 Urinary tract infection, site not specified (principal); G92.8 Other toxic encephalopathy; I50.32 Chronic diastolic (congestive) heart failure; Z68.1 Body mass index [BMI] 19.9 or less, adult; I48.0 Paroxysmal atrial fibrillation; Z79.01 Long term (current) use of anticoagulants; I11.0 Hypertensive heart disease with heart failure; I25.5 Ischemic cardiomyopathy; K21.9 Gastro-esophageal reflux disease without esophagitis; F32.A Depression, unspecified; F41.9 Anxiety disorder, unspecified; E78.00 Pure hypercholesterolemia, unspecified; R63.6 Underweight
CPT/HCPCS: 70496; 70498; 70551; 80053; 80061; 81003; 81015; 82607; 82728; 82746; 83036; 83735; 84443; 84484; 85025; 85027; 85610; 85652; 85730; 87040; 87077; 87086; 87186; 92523; 92526; 92610; 93005; 93306; 96374; 96375; 97112; 97116; 97163; 97167; 97530; 97535; 99285; Q9967

== ENCOUNTER 2025-04-11 18:09 | Inpatient (IN) | payer OTHER, SELFPAY ==
[2025-04-11] VITALS (12 sets, daily range): BP systolic 117–163; BP diastolic 73–99; PULSE 86–124; BMI 19.6; BMI 19.2
[2025-04-11 12:10] LABS: Hematocrit 35.3 % (37.0-47.0); Hemoglobin 11.6 g/dL (12.0-16.0); Mean Corp Hgb Conc. 32.9 g/dL (33.0-37.0); Mean Corpuscular Volume 91.9 fL (81.0-99.0); Platelet Count 316 10^3/uL (130-400); Red Cell Dist. Width 14.0 % (11.5-14.5)
[2025-04-11 12:30] LABS: ALT (SGPT) 84 U/L (0-35); AST (SGOT) 50 U/L (14-36); Albumin 3.9 g/dl (3.5-5.0); Alkaline Phosphatase 205 U/L (38-126); Blood Urea Nitrogen 19 mg/dl (7-17); Calcium 9.1 mg/dl (8.4-10.2); Carbon Dioxide 27 mmol/L (22-30); Chloride 102 mmol/L (98-107); Estimated Creatinine Clearance 49 ml/min; Glucose 114 mg/dl (70-99); Potassium 4.2 mmol/L (3.5-5.1); Sodium 134 mmol/L (135-145); Total Protein 6.0 g/dl (6.3-8.2); eGFR > 60.00
--- NOTE | 2025-04-11 13:40 | ED.GENMED ---
History of Present Illness
General
Chief Complaint: Rectal Bleeding
Source: patient and family (Daughter)
Exam Limitations: none
Time Seen by Provider: 04/11/25 11:23
Nursing documentation reviewed up to this point in time: agreed with
History of Present Illness
History of Present Illness:
Patient is an 84-year-old female with a past medical history of coronary artery disease and atrial fibs on Eliquis, who reports bright red blood per rectum since yesterday. Patient reports that yesterday she had severe abdominal pain, primarily in
her left lower abdomen. Patient reports that last night she had bright red blood come out of her bottom without any bowel movement. Patient reports this occurred again today. Patient denies lightheadedness, dizziness and shortness of breath.
Patient reports that she finished a round of antibiotics for UTI about 2 to 3 weeks ago. Daughter, who is at the bedside, reports that the patient's had diarrhea about 2 days ago. The patient denies fever.
Past History
Past History
ED Past Medical History: CAD and GERD
ED Past Surgical History: Bowel resection and Cardiac (ptca 2012)
Social History
Tobacco: Non-smoker
Alcohol: Occasional
Drug: None
Personal:
Living: with family
Employment: Retired
Family History
Family History: CAD
Review of Systems
Review of Systems
Allergies reviewed?: Yes
Other source history: family
All Other Systems: ROS reviewed and negative except as documented in HPI and ROS
Constitutional: Reports no symptoms
EENT: Reports no symptoms
Respiratory: Reports no symptoms
Cardiac: Reports no symptoms
ABD/GI: Reports abdominal pain and other (Rectal bleeding)
: Reports no symptoms
Musculoskeletal: Reports no symptoms
Skin: Reports no symptoms
Neurological: Reports no symptoms
Endocrine: Reports no symptoms
Hematologic/Lymphatic: Reports no symptoms
Psychiatric: Reports no symptoms
Phy Exam
Physical Exam
Physical Exam:
Physical Exam
General: no apparent distress, not acutely ill
Neck: supple. no meningeal signs. normal psoterior pharynx
Heart: Regular rate, irregular rhythm
Lungs: no acute respiratory distress. clear bilaterally
Abdomen: Soft, left lower quadrant tenderness, no rebound or guarding. On rectal exam, no active bleeding. Unable to get stool. No external hemorrhoids seen
Neuro: alert and oriented. no focal neurological deficits
Skin: no rash
Psychiatric: well kept. interactive and cooperative
Extremities: no edema. no calf tenderness. negative homans. good distal pulses
Course
Orders/Labs/Results
Orders:
Orders
04/11/25 11:55
Type And Crossmatch [Type+Screen] Urgent
Complete Blood Count/No Diff Urgent
Comprehensive Metabolic Panel Urgent
04/11/25 12:28
CT Abd/pelvis W Iv Cont Urgent
Comment:
Reason For Exam: LLQ pain, bright red blood per rectum
04/11/25 13:49
Lactic Acid Urgent
04/11/25 17:32
Admit/Transfer Patient As Directed
Co-Sign Provider:
Level of Care: Inpatient admission
Assign to:: Telemetry
Physician / Group: [email or web address]
Diagnosis: acute LGIB
Reason for Telemetry: Arrhythmia
Date to Stop Telemetry: 04/14/25
Time to Stop Telemetry: 11:00
Reason for Hospitalization: acute LGIB
Expected length of stay greater than two midnights?: Yes
ELOS- Estimated Length of Stay in days: 3
I certify the patient meets the requirements for IP care: Yes
PRN Pain Medication Management As Directed
May give lesser potent ordered pain med per pt: Yes
preference::
Protocol:: Medication orders for pain may be administered in a
manner that supports deferring to patient preference
when the pt is:
- Requesting an ordered lesser potent pain medication.
Least to most potent pain medications are defined
as: acetaminophen < NSAID < tramadol < opioids
(morphine, oxycodone, hydromorphone).
- Requesting a lesser dose of the same medication IF
ORDERED.
- Requesting a less intrusive route of administration
if both routes are prescribed by the provider (PO <
IV).
04/11/25 17:35
Code Status As Directed
Resuscitation Status: Full Code
04/14/25 11:00
DC Protocol for Telemetry ONCE
Abnormal Lab Results
04/11/25
11:55
WBC 17.9 H 10^3/uL
(4.8-10.8)
RBC 3.84 L 10^6/uL
(4.20-5.40)
Hgb 11.6 L g/dL
(12.0-16.0)
Hct 35.3 L %
(37.0-47.0)
MCHC 32.9 L g/dL
(33.0-37.0)
Sodium 134 L mmol/L
(135-145)
BUN 19 H mg/dl
(7-17)
Glucose 114 H mg/dl
(70-99)
AST 50 H U/L
(14-36)
ALT 84 H U/L
(0-35)
Alkaline Phosphatase 205 H U/L
(38-126)
Total Protein 6.0 L g/dl
(6.3-8.2)
04/11/25 11:55
04/11/25 11:55
Vital Signs
Initial and Last Documented VS:
Initial Vital Signs
Temp Pulse Resp BP Pulse Ox
97.6 F 110 20 141/90 99
04/11/25 10:45 04/11/25 10:45 04/11/25 10:45 04/11/25 10:45 04/11/25 10:45
Last Documented Vital Signs
Temp Pulse Resp BP Pulse Ox
97.6 F 115 20 136/99 97
04/11/25 10:45 04/11/25 16:00 04/11/25 16:00 04/11/25 16:00 04/11/25 16:00
MDM/Problems Addressed
Differential Diagnosis Includes:
Internal hemorrhoid, AV malformation, diverticulosis
MDM/Problems Addressed:
Patient reports acute rectal bleed and abdominal pain
Chronic conditions affecting care:
Patient is chronically anticoagulated which could increase the risk of spontaneous bleeding
Acute Exacerbation and/or Progression of Chronic Illness:
Patient is acutely hypertensive, however, on rechecking it, her blood pressure has lessened
*Radiology
Radiology exam reviewed: radiology read reviewed
*Pulse Oximetry
SaO2: 97
Oxygen Mode of Delivery: Room air
Patient hypoxic: no
Comment: 97% on room air
*EKG
Interpreted by ED Provider?: NA
*Supercalender Operator Interpretation
Rate: normal and tachycardiac
Interpretation: abnormal
Rhythm: a-fib
*Critical Care Note
Total Time (30-74mins, 75-104mins- exclusive of procedures): Not Applicable
Data Reviewed
Review of Other/Old Records Reveals: Discharge Summary (Discharge summary reviewed from March 2025 when patient was admitted for A-fib with RVR)
Patient Management
Social determinants of health affecting care: Living situation and Strong social support
Discussion with other providers: Hospitalist
ED Attending Note
-
Portions of this chart may have been created with voice recognition software.� Occasional wrong word or��sound alike� substitutions may have occurred due to the inherent limitations of voice recognition software.
Discharge Plan
Departure
Patient Disposition: Admit
Date of Disposition: 04/11/25
Time of Disposition: 16:25
Admit to: Med/Surg
Presentation/result/management discussed w/ accepting MD/DO: Hospitalist
Patient with high blood pressure during this ER visit?: Yes
Condition: Good
Covid-19: Not Applicable
Discharge Problem:
Acute colitis, Bright red blood per rectum
Prescriptions:
No Action
pantoprazole 40 MG tablet,delayed release (DR/EC)
40 mg PO DAILY
letrozole 2.5 mg Tablet
2.5 mg PO DAILY
ezetimibe [Zetia] 10 mg Tablet
10 mg PO HS
Lumigan 0.01 % Drops
1 drp BOTH EYES HS
Vitamin B-12 50 mcg Tablet
50 mcg PO DAILY
paroxetine HCl 30 mg tablet
30 mg PO DAILY
duloxetine 30 mg capsule,delayed release(DR/EC)
30 mg PO DAILY
Repatha SureClick 140 mg/mL pen injector
140 mg SC Q2W
diltiazem HCl 120 mg Capsule,Extended Release 24hr
120 mg PO DAILY Qty: 30 1RF
Eliquis 2.5 mg Tablet
2.5 mg PO BID Qty: 60 1RF
metoprolol tartrate 25 mg Tablet
50 mg PO BID Qty: 120 1RF
thiamine HCl (vitamin B1) 100 mg tablet
100 mg PO DAILY Qty: 20 0RF
atorvastatin 80 mg Tablet
40 mg PO DAILY
loperamide [Imodium] 2 mg Capsule
4 mg PO BIDPRN PRN (Reason: diarrhea)
aspirin 81 mg Tablet,Delayed Release (Dr/Ec)
81 mg PO DAILY
calcium carbonate 500 mg calcium (1,250 mg) Tablet
1,000 mg PO DAILY
docusate sodium [Stool Softener] 100 mg Capsule
200 mg PO DAILYPRN PRN (Reason: constipation)
Benefiber (guar gum) powder
2 tsp PO DAILY
Referrals:
Bing Paz MD [Family Provider, Internal Medicine]
Interventions
Interventions:
*Risk Screen - Suicide Last Done: 04/11/25 10:45
*General Assessment Last Done: 04/11/25 10:45
*Neglect/Abuse Screening Last Done: 04/11/25 11:47
*ED- Fall Risk Assessment Last Done: 04/11/25 11:47
*ED COVID-19 Vaccine History Last Done: 04/11/25 11:47
[facility]-Ukrnkb-Ebzcdbnhwq Assessment Last Done: 04/11/25 12:47
ED- Cardiac Assessment Last Done: 04/11/25 16:12
ED- Pulmonary Assessment Last Done: 04/11/25 16:12
Discharge Date and Time
Print Language: NIGERIAN
--- NOTE | 2025-04-11 17:08 | HPS.HSE ---
Family Physician
-
Family Physician: Bing Paz MD
Chief Complaint
-
Rectal bleed
History of Present Illness
HPI
84F HX CAD, Prx AF on Eliquis seen at ER
- reports bright red blood per rectum since yesterday.
- preceded by severe abdominal pain, primarily in her left lower abdomen.
- last night first episode of bright red blood come out of her bottom without any bowel movement. and occurred again today. - denies lightheadedness, dizziness and shortness of breath.
- no fever
Patient reports that she finished a round of antibiotics for UTI about 2 to 3 weeks ago.
Daughter, who is at the bedside, reports that the patient's had diarrhea about 2 days ago. The patient denies fever.
Medical History
Past Medical History
Past Medical History: Reports Other
Additional Past Medical History:
paroxysmal atrial fibrillation
hypertension
hyperlipidemia
HFpEF
ischemic cardiomyopathy
Hx right breast cancer
Past Surgical History: Reports Other
Additional Past Surgical History:
LEEP (2000)
Breast biopsy - benign
Cataract extraction
Percutaneous transluminal balloon angioplasty with insertion of stent into coronary artery(2012)
Cardiac catheterization with 2 stent placements
Right Hemicolectomy
Incisional hernia repair(2013)
S/P stenting LAD and mid-RCA with PROMUS drug-eluting stent
Left miniscus repair
Small Bowl Resection from Obstruction (2012)
Conization of Cervix
Hernia Repair (2013)
LT Knee Surgery 2016
Cardiac Cath DH 06/16/2019
rt breast bx dh breast cancer 05/27
rt lumpectomy 07/2020
RT Breast Bx 06/2020 Benign
LTKR 10/2022
Social History
Tobacco: Non-smoker
Alcohol: Daily (1 glass of wine daily )
Drug: None
Personal:
Living: With Family
Employment: Retired
Family History
Family History: Other (Mother (): CAD; Father ( at 42): CAD, [place] )
Allergies / Home Medications
Allergies reflects when Allergies were last updated in [facility].
Home Medications with original date entered in [facility]
Allergy/Medication List:
Allergies
Allergy/AdvReac Type Severity Reaction Status Date / Time
No Known Allergies Allergy Verified 02/23/24 16:10
Home Medications
pantoprazole 40 mg tablet,delayed release 40 mg PO DAILY Gastrointestinal issue 07/26/15
apixaban 5 mg tablet (Eliquis) 5 mg PO BID Blood clot prevention/tx 07/19/20
Held on 10/12/22. Instructions: Resume on 10/18/22.
atorvastatin 40 mg tablet 40 mg PO HS High cholesterol 07/19/20
metoprolol tartrate 25 mg tablet 12.5 mg PO BID Blood pressure 07/19/20
bimatoprost 0.01 % eye drops (Lumigan) 1 drp ophthalmic (eye) DAILY Eye condition 09/15/22
ezetimibe 10 mg tablet (Zetia) 10 mg PO HS High cholesterol 09/15/22
letrozole 2.5 mg tablet 2.5 mg PO DAILY Cancer 09/15/22
aspirin 81 mg tablet 81 mg PO DAILY 03/19/25
calcium carbonate 1,000 mg PO DAILY 03/19/25
cyanocobalamin (vitamin B-12) 50 mcg tablet (Vitamin B-12) 50 mcg PO BID 03/19/25
duloxetine 30 mg capsule,delayed release 30 mg PO DAILY 03/19/25
evolocumab 140 mg/mL subcutaneous pen injector (Repatha SureDamonick) 140 mg SC ONCE 03/19/25
paroxetine HCl 30 mg tablet 30 mg PO DAILY 03/19/25
Review of Systems
-
Constitutional: Reports No Symptoms
EENT: Reports No Symptoms
Respiratory: Reports No Symptoms
Cardiac: Reports No Symptoms
Abdomen/GI: Reports No Symptoms
: Reports No Symptoms
Musculoskeletal: Reports No Symptoms
Skin: Reports No Symptoms
Neurological: Reports No Symptoms
Endocrine: Reports No Symptoms
Hematologic/Lymphatic: Reports No Symptoms
Psych: Reports No Symptoms
Physical Exam
Vital Signs
Vital Signs
Temp Pulse Resp BP Pulse Ox
97.6 F 115 20 136/99 97
04/11/25 10:45 04/11/25 16:00 04/11/25 16:00 04/11/25 16:00 04/11/25 16:00
Physical Exam
General: Well Developed, Well Nourished, No Apparent Distress, Comfortable and Conversant
HEENT: NormoCephalic, Moist mucous membranes, Atraumatic, Nose Appears Normal, Ears Appear Normal and Hearing Impaired
Respiratory: Clear
Cardiac: S1/S2 and Tachycardia
Breast: Deferred by me
GI: Soft, Non Tender, Non Distended and Normal Bowel Sounds
Genito-urinary: Deferred by me
Musculoskeletal: No Clubbing, No Cyanosis and No Edema
Skin: IV/Catheter Site
Neuro: Awake, Alert, AO x 3 and Nonfocal/grossly intact
Psych: Calm
Laboratory Results
-
04/11/25 11:55
04/11/25 11:55
Laboratory Results
Lactic Acid 1.1 mmol/L (0.7-2.0) 04/11/25 13:49
Total Bilirubin 1.3 mg/dl (0.2-1.3) 04/11/25 11:55
AST 50 U/L (14-36) H 04/11/25 11:55
ALT 84 U/L (0-35) H 04/11/25 11:55
Alkaline Phosphatase 205 U/L (38-126) H 04/11/25 11:55
Data Reviewed
-
CT Scan: Report Reviewed by me
Lab Data: Labs Reviewed by me
Old Records: Reviewed
Impression/Plan
-
Selected Entries
04/11/25
10:45
Temp 97.6 F
Pulse 110
Resp Rate 20
Blood pressure 141/90
SaO2 99
Oxygen Mode of Delivery Room air
Labs
03/24/25 04/11/25
02:13 11:55
WBC 17.9 H
Hgb 11.5 L 11.6 L
Plt Count 316
Sodium 142 134 L
BUN 23 H 19 H
Creatinine 0.9 0.8
eGFR > 60.00 > 60.00
AST 25 50 H
ALT 24 84 H
Alkaline Phosphatase [address]/pelvis W Iv Cont
- 19 cm long segment of severe wall thickening involving the left side of the transverse colon through the splenic flexure.
This is compatible with colitis. Infectious colitis would be the leading consideration. Inflammatory bowel disease could be considered although unusual distribution. Ischemic colitis is a differential consideration, felt to be less likely.
- Status post right hemicolectomy.
- Mild to moderate dilation of mid to distal small bowel loops, which may be on the basis of partial obstruction from colitis. - There was dilation of small bowel loops on the previous CT, and there could also be a component of chronic small bowel
dilation.
- Bilateral renal cysts.
- Two less than 5 mm low-density lesions within the liver, too small to characterize, but statistically likely small cysts or hemangiomas, for which no further imaging follow-up is recommended.
Echo 11/19/2024:
EF 55 to 60%, normal diastolic function, normal RV size and function
Moderate MR, moderate to severe TR
PAP 35 to 40 mmHg
Echo 03/20/25:
New mildly reduced EF 45 to 50% without evidence of volume overload, possible tachycardia mediated
Last hospitalist admission : 03/19/25 - 03/24/25
Toxic metabolic encephalopathy on mild cognitive impairment
E. Coli Urinary Tract Infection
Episode of slurred speech on 03/18/25, short time, recovered spontaneously -- suspected secondary to cardiac dysrhythmia on a background of potential cognitive worsening in the past year
ASSESSMENT & PLAN
Pending Rx reconciliation
Acute 2 episodes of BRBPR preceded by abdominal pian
DDX : Suspect LGI origin like Colitis ( ischemic, infective) Hemorrhoids
Stable Hgb at abseline mid 11s
LA 1.1
Hemodynamically stable
HX R hemicolectomy
- Hold RESOURCE TEACHER Eliquis - last dose was 8am today
- NPO except sips and IVF
- empiric IV Zosyn
- PRN analgesia
- stool Cx
- GI consult
Recent HX New mildly reduced EF 45 to 50% without evidence of volume overload, possible tachycardia mediated interval
HX Paroxysmal AF
- on Metoprolol tartrate and and PO Cardizem
- Hold RESOURCE TEACHER Eliquis due to acute LGIB
- Primary online content developer Dr Clemente. In the future: Amiodarone for recurrent rapid HRs, and consideration for cardioversion if patient remains in Atrial Fibrillation. Follow-up with Dr. Clemente outpatient
Known HX
HX CAD s/p LAD/RCA PCI 2014
Moderate to severe TR
Moderate MR by echo 11/19/2024
HX mild cognitive impairment: Known to have memory impairment, also overwhelmed by her care
HX E. coli UTI complicated by TME on last admission
Chronic Anxiety
Essential HTN
Hyperlipidemia
HX bowel resection/ Rt hemicolectomy (volvulus 2012)
Underweight
DVT Px: SCD
Full code
IP TLM
--- NOTE | 2025-04-11 21:15 | PTCARENOTE ---
Received pt to 4W from ED. Pt able to stand pivot from stretcher to bed.
[2025-04-11] MEDS: LOPRESSOR 50 MG PO (21:41)
[2025-04-11] MEDS: ZOSYN 50 IV (21:41)
[2025-04-11] MEDS: XALATAN OPHTHALMIC SOLUTION 1 DROP BOTH EYES (21:42)
[2025-04-11 21:51] LABS: Hematocrit 32.6 % (37.0-47.0); Hemoglobin 10.6 g/dL (12.0-16.0)
[2025-04-12] VITALS (9 sets, daily range): BP systolic 106–148; BP diastolic 59–93; PULSE 84–122; BMI 19.2
--- NOTE | 2025-04-12 03:30 | PTCARENOTE ---
Pt has a history of a R lumpectomy. RUE limb alert band placed, tech informed to get blood pressures from L arm. [place] texted and called IV team to ask if her RAC needs to be moved to the [facility], awaiting reply.
[2025-04-12] MEDS: ZOSYN 50 IV ×4 (03:53→20:53)
[2025-04-12 04:04] LABS: Hematocrit 33.4 % (37.0-47.0); Hemoglobin 11.0 g/dL (12.0-16.0)
[2025-04-12 04:14] LABS: INR 1.34; PT 16.9 Sec (11.4-14.6)
[2025-04-12 04:22] LABS: Blood Urea Nitrogen 15 mg/dl (7-17); Calcium 8.6 mg/dl (8.4-10.2); Carbon Dioxide 25 mmol/L (22-30); Chloride 104 mmol/L (98-107); Estimated Creatinine Clearance 48 ml/min; Glucose 98 mg/dl (70-99); Potassium 3.7 mmol/L (3.5-5.1); Sodium 136 mmol/L (135-145); eGFR > 60.00
[2025-04-12] MEDS: CARDIZEM CD 120 MG PO (08:32)
[2025-04-12] MEDS: FEMARA 2.5 MG PO (08:32)
[2025-04-12] MEDS: LOPRESSOR 50 MG PO ×2 (08:32→20:45)
[2025-04-12] MEDS: PROTONIX IV 40 MG IV (08:33)
[2025-04-12] MEDS: NSS (PRESERVATIVE FREE) 10 ML IV (08:33)
--- NOTE | 2025-04-12 08:37 | W.PN.HOSP.TC ---
Today's Communication/Plan
-
see bold
Assessment / Plan
Assessment / Plan
HPI
84F HX CAD, Prx AF on Eliquis seen at ER
- reports bright red blood per rectum since yesterday.
- preceded by severe abdominal pain, primarily in her left lower abdomen.
- last night first episode of bright red blood come out of her bottom without any bowel movement. and occurred again today. - denies lightheadedness, dizziness and shortness of breath.
- no fever
Assessment/plan:
#Rectal bleeding
#Colitis
Appreciate GI input, suspect infectious versus ischemic, less likely inflammatory
Patient had a recent colonoscopy January 2020 for
Dilation of small bowels chronic, low suspicion for SBO
GI recommends holding Eliquis, clear liquid diet, trending hemoglobin
Continue IV Zosyn, follow-up with stool studies
#Transaminitis
Trend liver function tests
Recent history of new mildly reduced EF 45 to 50% without evidence of volume overload, possible tachycardia mediated interval
- Monitor volume status
Paroxysmal atrial fibrillation
- Continue on Metoprolol tartrate and and PO Cardizem
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
- Primary operations leader Dr Clemente
- Follow-up with Dr. Clemente outpatient
Other medical problems:
HX CAD s/p LAD/RCA PCI 2014
Moderate to severe TR
Moderate MR by echo 11/19/2024
HX mild cognitive impairment: Known to have memory impairment, also overwhelmed by her care
HX E. coli UTI complicated by TME on last admission
Chronic Anxiety
Essential HTN
Hyperlipidemia
HX bowel resection/ Rt hemicolectomy (volvulus 2012)
Underweight
DVT prophylaxis�SCDs
Full code
Updated family at bedside 04/12
Total time spent to see the patient on the floor, examine the patient, review data and lab results, discuss treatment plan with patient, nursing staff around 45 minutes.
Physical Exam
General: No acute distress
HEENT: Normocephalic, Atraumatic, EOMI, MMM
Respiratory: Clear to Auscultation bilaterally
Cardiac: Normal S1/S2, Regular Rate and Rhythm
GI: Soft, Nontender, Nondistended, Normal Bowel Sounds
Extremities: No Clubbing, Cyanosis, or Edema
Neuro: Nonfocal/Grossly Intact
Psych: Calm, Cooperative
Derm: No Visible lesions
Physical Exam
General: No acute distress
HEENT: Normocephalic, Atraumatic, EOMI, MMM
Respiratory: Clear to Auscultation bilaterally
Cardiac: Normal S1/S2, Regular Rate and Rhythm
GI: Soft, Nontender, Nondistended, Normal Bowel Sounds
Extremities: No Clubbing, Cyanosis, or Edema
Neuro: Nonfocal/Grossly Intact
Psych: Calm, Cooperative
Derm: No Visible lesions
Anticipated Discharge: 24 - 48 hours
Subjective/Interval History
-
Date of Service: April 12, 2025
Patient has not had any blood per rectum since prior to admission. She reports some lightheadedness. No chest pain, no shortness of breath. No fever, no vomiting.
Objective Data
-
Labs:
Laboratory Results
04/11/25 04/12/25
21:35 03:52
Hgb 10.6 L 11.0 L
Hct 32.6 L 33.4 L
PT 16.9 H
INR 1.34
Sodium 136
Potassium 3.7
Chloride 104
Carbon Dioxide 25
BUN 15
Creatinine 0.8
Glucose 98
Calcium 8.6
Vital Signs:
Vital Signs
Temp Pulse Resp BP Pulse Ox
97.6 F 110 16 144/91 97
04/12/25 08:27 04/12/25 08:27 04/12/25 08:27 04/12/25 08:27 04/12/25 08:27
I&O
04/11/25 04/12/25 04/13/25
06:59 06:59 06:59
Intake Total 220 / 220
Balance 220 / 220
--- NOTE | 2025-04-12 09:12 | CON.GI ---
Consultation
-
Date/Time Consultation Requested: 04/11/25
Date/Time Consultation Performed: 04/12/25
Requesting Provider: Rick Aburto
Performing Provider: Tonie Pastrana
Reason for Consultation: Colitis, rectal bleeding
Medical History
Chief Complaint / HPI
Chief Complaint: Abdominal pain, rectal bleeding
History of Present Illness:
Gwen Clark is an 84 y.o. female w/ pmhx CAD, afib on eliquis, HTN, HLD, ischemic cardiomyopathy, Hx breast cancer, Hx cecal volvulus s/p right hemicolectomy admitted with multiple episodes of rectal bleeding. She reports having severe abdominal
pain, located in the left lower abdomen, followed by multiple episodes of bright red blood per rectum. She does admit to being constipated prior to this. She denies fever/chills. She was recently hospitalized from 03/19-03/24 with acute
encephalopathy, E. Coli UTI with course c/b slurred speech which was transient and felt to be possibly due to cardiac dysrhythmia in setting of worsening cognitive decline over the last year. Last dose of eliquis was 7/5 AM.�She actually feels well
now, no bleeding since arrival. She is requesting to go home today, would prefer not to have a colonoscopy if not absolutely necessary.
BUN 19/Cr. 0.8
WBC 17.9
Hgb 11.6 (previously 11.5 on 03/24/25)
MCV 91.9
Plt 316
Tbili 1.3, AST 50, ALT 84, Alk phos 205, Albumin 3.9
Lactate 1.1
INR 1.01
CT A/P w/ IV Contrast 04/11/25: s/p right hemicolectomy. Mild to moderate dilation of the mid to distal small bowel, may be on the basis of partial obstruction from colitis (also present on prior imaging, may be a component of chronic small bowel
dilation). 19 cm long segment of severe wall thickening of the left side of the transverse colon through the splenic flexure c/w colitis, infectious vs. ischemic vs. inflammatory. Small hepatic cysts vs. hemangiomas.�
ECHO 03/20/25: New mildly reduced EF 45-50% w/o evidence of volume overload, possible tachycardia mediated
ECHO 11/19/24: EF 55-60%, normal diastolic function, normal RV size and function. Moderate MR, moderate to severe TR. PAP 35-40 mmHg
Past Medical History
Past Medical History: Other (CAD, afib on eliquis, HTN, HLD, ischemic cardiomyopathy, Hx breast cancer)
Past Surgical History: Other (LEEP (2000) Breast biopsy - benign dh 1990s Cataract extraction Percutaneous transluminal balloon angioplasty with insertion of stent into coronary artery(2012) Cardiac catheterization with 2 stent
placements Right Hemicolectomy Incisional hernia repair(2013) S/P stentin)
Social History
Tobacco: Non-Smoker
Alcohol: Daily (1 glass of wine daily)
Family History
Family History: Reviewed & Not Pertinent
Allergies / Home Medications
Allergy/AdvReac Type Severity Reaction Status Date / Time
lorazepam (From Ativan) AdvReac Hallucinati Verified 04/11/25 10:45
ons
�Medication �Instructions �Recorded
pantoprazole 40 mg tablet,delayed 40 mg PO DAILY Gastrointestinal 07/26/15
release issue
bimatoprost 0.01 % eye drops 1 drp BOTH EYES HS Eye condition 09/15/22
(Lumigan)
ezetimibe 10 mg tablet (Zetia) 10 mg PO HS High cholesterol 09/15/22
letrozole 2.5 mg tablet 2.5 mg PO DAILY Cancer 09/15/22
cyanocobalamin (vitamin B-12) 50 50 mcg PO DAILY Supplement 03/19/25
mcg tablet (Vitamin B-12)
duloxetine 30 mg capsule,delayed 30 mg PO DAILY Mental 03/19/25
release Health/Anxiety
evolocumab 140 mg/mL subcutaneous 140 mg SC Q2W High Cholesterol 03/19/25
pen injector (Philippe Jacques)
paroxetine HCl 30 mg tablet 30 mg PO DAILY Mental 03/19/25
Health/Anxiety
apixaban 2.5 mg tablet (Eliquis) 2.5 mg PO BID #60 tabs 03/24/25
diltiazem HCl 120 mg 120 mg PO DAILY #30 caps 03/24/25
capsule,extended release 24 hr
metoprolol tartrate 25 mg tablet 50 mg (2 x 25 mg) PO BID #120 tabs 03/24/25
thiamine HCl (vitamin B1) 100 mg 100 mg PO DAILY #20 tabs 03/24/25
tablet
Benefiber (guar gum) 2 tsp PO DAILY Constipation 04/11/25
aspirin 81 mg tablet,delayed 81 mg PO DAILY Blood Clot 04/11/25
release Prevention/Tx
atorvastatin 80 mg tablet 40 mg PO DAILY High Cholesterol 04/11/25
calcium carbonate 1,000 mg PO DAILY Supplement 04/11/25
docusate sodium 100 mg capsule 200 mg PO DAILYPRN PRN constipation 04/11/25
(Stool Softener)
loperamide 2 mg capsule 4 mg PO BIDPRN PRN diarrhea 04/11/25
Review of Systems
-
All other systems: A 12 pt ROS was Negative except as stated above in HPI
Vital Signs
Temp Pulse Resp BP Pulse Ox
97.6 F 110 16 144/91 97
04/12/25 08:27 04/12/25 08:27 04/12/25 08:27 04/12/25 08:27 04/12/25 08:27
Physical Exam
Exam
General: Well Developed and Well Nourished
GI: Soft and Tender (+TTP in LLQ on deep palpation, no rebound or guarding)
Results
WBC 17.9 10^3/uL (4.8-10.8) H 04/11/25 11:55
Hgb 11.0 g/dL (12.0-16.0) L 04/12/25 03:52
Hct 33.4 % (37.0-47.0) L 04/12/25 03:52
MCV 91.9 fL (81.0-99.0) 04/11/25 11:55
Plt Count 316 10^3/uL (130-400) 04/11/25 11:55
PT 16.9 Sec (11.4-14.6) H 04/12/25 03:52
INR 1.34 04/12/25 03:52
Sodium 136 mmol/L (135-145) 04/12/25 03:52
Potassium 3.7 mmol/L (3.5-5.1) 04/12/25 03:52
Chloride 104 mmol/L (98-107) 04/12/25 03:52
Carbon Dioxide 25 mmol/L (22-30) 04/12/25 03:52
BUN 15 mg/dl (7-17) 04/12/25 03:52
Creatinine 0.8 mg/dL (0.6-1.0) 04/12/25 03:52
Calcium 8.6 mg/dl (8.4-10.2) 04/12/25 03:52
Total Bilirubin 1.3 mg/dl (0.2-1.3) 04/11/25 11:55
AST 50 U/L (14-36) H 04/11/25 11:55
ALT 84 U/L (0-35) H 04/11/25 11:55
Alkaline Phosphatase 205 U/L (38-126) H 04/11/25 11:55
Diagnostic Image Results:
Prior GI Procedures:
--EGD 2023 ([facility]): Mild dilation in the entire esophagus with retained saliva c/w ineffective peristalsis/movement. Abnormal esophageal motility. 3 cm hiatal hernia. Irregular Z line, 38 cm from the incisors, bx showed mild focal acute and mild to
moderate chronic inflammation, negative for IM and dysplasia. Antral gastritis, biopsies showed mild chronic inflame, neg for HP. Normal duodenum.�
--Colonoscopy 2023 ([facility]): 3 mm hyperplastic polyp in sigmoid colon. Left-sided diverticulosis. Hemorrhoids on perianal exam. Patent end-to-side oleo-colonic anastomosis characterized by healthy appearing mucosa. Examined portion of the ileum was
normal.�
-colonoscopy in 2012 on her that showed diverticulosis and evidence of an end-to-side ileocolonic anastomosis (she had a right hemicolectomy in 2012 by Saran Skelton secondary to a cecal volvulus).
Assessment / Plan
-
84 y.o. female w/ pmhx CAD, afib on eliquis, HTN, HLD, ischemic cardiomyopathy, Hx breast cancer, Hx volvulus s/p right hemicolectomy admitted with multiple episodes of rectal bleeding and a long segment of colitis found on imaging. Labs significant
for mildly elevated liver enzymes, leukocytosis and overall stable hemoglobin. Clinically, she appears well and endorses wanting to go home today, hoping not to need a colonoscopy. Her last dose of eliquis was on the morning of 04/11, currently being
held.
CT A/P w/ IV Contrast 04/11/25: s/p right hemicolectomy. Mild to moderate dilation of the mid to distal small bowel, may be on the basis of partial obstruction from colitis (also present on prior imaging, may be a component of chronic small bowel
dilation). 19 cm long segment of severe wall thickening of the left side of the transverse colon through the splenic flexure c/w colitis, infectious vs. ischemic vs. inflammatory. Small hepatic cysts vs. hemangiomas.�
#Rectal Bleeding
#Colitis
#Abnormal CT scan
#Elevated Liver Enzymes
Given the distribution of colitis, I suspect this is ischemic or infectious, unlikely to be inflammatory given her age, acuity as well as recent colonoscopy by Dr. Ayoub in 01/2024. Dilation of her small bowel appears to be chronic, and actually
noted to be improved compared to imaging in 2021, low suspicion for pSBO.
Plan:
-hold Eliquis
-okay for clears
-IVF
-hemoglobin overall stable 12.2 --> 10.6 --> 11, no episodes of bleeding since arrival
-monitor fever curve and white count
-f/u stool studies
-trend LFTs, suspect congestive hepatopathy vs. sepsis, history of LFTs on prior admissions that resolved quickly. If continue to trend up, will recommend abdominal US w/ dopplers
-depending on clinical course in next 24 hours, may be able to d/c home vs. inpatient endoscopic evaluation
Data Reviewed
-
Radiology: Report Reviewed by me
CT Scan: Report Reviewed by me
Old Records: Reviewed
-
-
Thank you for consultation and allowing me to participate in the patient's care. Please call the education research analyst GI physician during the after hours with any questions or concerns.
[2025-04-12] MEDS: CYMBALTA DELAYED RELEASE 30 MG PO (13:34)
[2025-04-12] MEDS: VITAMIN B1 100 MG PO (13:34)
[2025-04-12] MEDS: PAXIL 30 MG PO (13:34)
[2025-04-12] MEDS: NSS 1000 IV (13:34)
[2025-04-12] MEDS: XALATAN OPHTHALMIC SOLUTION 1 DROP BOTH EYES (20:53)
[2025-04-13] VITALS (7 sets, daily range): BP systolic 125–152; BP diastolic 73–89; BMI 19.3
[2025-04-13] MEDS: ZOSYN 50 IV ×4 (03:11→21:54)
[2025-04-13] MEDS: NSS 1000 IV (03:59)
[2025-04-13 08:17] LABS: Hematocrit 33.4 % (37.0-47.0); Hemoglobin 10.9 g/dL (12.0-16.0); Mean Corp Hgb Conc. 32.6 g/dL (33.0-37.0); Mean Corpuscular Volume 92.5 fL (81.0-99.0); Platelet Count 294 10^3/uL (130-400); Red Cell Dist. Width 14.0 % (11.5-14.5)
[2025-04-13 09:05] LABS: Blood Urea Nitrogen 8 mg/dl (7-17); Estimated Creatinine Clearance 48 ml/min; Glucose 92 mg/dl (70-99)
[2025-04-13 09:06] LABS: ALT (SGPT) 45 U/L (0-35); AST (SGOT) 25 U/L (14-36); Albumin 3.1 g/dl (3.5-5.0); Alkaline Phosphatase 148 U/L (38-126); Calcium 7.8 mg/dl (8.4-10.2); Carbon Dioxide 21 mmol/L (22-30); Chloride 110 mmol/L (98-107); Potassium 3.6 mmol/L (3.5-5.1); Sodium 137 mmol/L (135-145); Total Protein 5.2 g/dl (6.3-8.2); eGFR > 60.00
[2025-04-13] MEDS: NSS (PRESERVATIVE FREE) 10 ML IV (09:37)
[2025-04-13] MEDS: PROTONIX IV 40 MG IV (09:38)
[2025-04-13] MEDS: CARDIZEM CD 120 MG PO (09:38)
[2025-04-13] MEDS: FEMARA 2.5 MG PO (09:38)
[2025-04-13] MEDS: LOPRESSOR 50 MG PO ×2 (09:38→20:20)
[2025-04-13] MEDS: CYMBALTA DELAYED RELEASE 30 MG PO (09:38)
[2025-04-13] MEDS: PAXIL 30 MG PO (09:39)
[2025-04-13] MEDS: VITAMIN B1 100 MG PO (09:40)
--- NOTE | 2025-04-13 09:51 | W.PN.GI.CBS2 ---
Today's Communication / Plan
-
Abdominal pain improved. Hemoglobin stable. Advance to low residue diet. Recommend completing course of antibiotics. Resume eliquis. Okay for d/c today with outpatient GI follow-up, our office will reach out to her. GI will sign off, please call
with questions.
Assessment / Plan
-
84 y.o. female w/ pmhx CAD, afib on eliquis, HTN, HLD, ischemic cardiomyopathy, Hx breast cancer, Hx volvulus s/p right hemicolectomy admitted with multiple episodes of rectal bleeding and a long segment of colitis found on imaging. Labs significant
for mildly elevated liver enzymes, leukocytosis and overall stable hemoglobin. Clinically, she appears well and endorses wanting to go home today, hoping not to need a colonoscopy. Her last dose of eliquis was on the morning of 04/11, currently being
held.
CT A/P w/ IV Contrast 04/11/25: s/p right hemicolectomy. Mild to moderate dilation of the mid to distal small bowel, may be on the basis of partial obstruction from colitis (also present on prior imaging, may be a component of chronic small bowel
dilation). 19 cm long segment of severe wall thickening of the left side of the transverse colon through the splenic flexure c/w colitis, infectious vs. ischemic vs. inflammatory. Small hepatic cysts vs. hemangiomas.�
#Rectal Bleeding
#Colitis
#Abnormal CT scan
#Elevated Liver Enzymes
Given the distribution of colitis, I suspect this is ischemic or infectious, unlikely to be inflammatory given her age, acuity as well as recent colonoscopy by Dr. Ayoub in 01/2024. Dilation of her small bowel appears to be chronic, and actually
noted to be improved compared to imaging in 2021, low suspicion for pSBO.
Plan:
-hemoglobin stable with clinical improvement in symptoms, hold on endoscopic evaluation
-okay to resume eliquis
-advance to low residue diet
-recommend complete course of antibiotics
-LFTs downtrending
-okay for d/c today with outpatient f/u with Dr. Ayoub
Subjective
Subjective
Date of Service: April 13, 2025
Patient endorses improvement in pain. Overall, feels well. Hemoglobin stable this morning.
Objective
Data Reviewed
Laboratory Data:
Laboratory Results
04/13/25 07:42
04/13/25 07:42
Laboratory Results
PT 16.9 Sec (11.4-14.6) H 04/12/25 03:52
INR 1.34 04/12/25 03:52
Total Bilirubin 0.8 mg/dl (0.2-1.3) 04/13/25 07:42
AST 25 U/L (14-36) 04/13/25 07:42
ALT 45 U/L (0-35) H 04/13/25 07:42
Alkaline Phosphatase 148 U/L (38-126) H 04/13/25 07:42
Vital Signs and I&O:
Vital Signs
Temp Pulse Resp BP Pulse Ox
97.5 F 98 16 148/87 96
04/13/25 07:10 04/13/25 07:10 04/13/25 07:10 04/13/25 07:10 04/13/25 07:10
I&O
04/12/25 04/13/25 04/14/25
06:59 06:59 06:59
Intake Total 220 / 220 2365 / 2365
Balance 220 / 220 2365 / 2365
Physical Exam
Physical Exam
HEENT: Anicteric and Moist mucous membranes
GI: Soft, Non Distended and Tender (mild TTP in LUQ and LLQ, improved from yesterdays exam. No rebound or guarding)
--- NOTE | 2025-04-13 12:08 | W.PN.HOSP.TC ---
Today's Communication/Plan
-
cont Zosyn
start Eliquis
If labs stable and patient improving - might be for d/c in AM
Assessment / Plan
Assessment / Plan
84yo F with PMHx of CAD, Afib on Eliquis, HLD, HTN, anxiety, GERD, constipation came with hematochezia and abdominal tenderness, CT showed large 19cm section of colitis, most likely infectious. GI followed and no plan for colonoscopy, recommended
outpatient follow up.
Assessment/plan:
#Rectal bleeding
#Colitis
Appreciate GI input, suspect infectious versus ischemic, less likely inflammatory
Patient had a recent colonoscopy January 2020
Dilation of small bowels chronic, low suspicion for SBO
Continue IV Zosyn, follow-up with stool studies, restart Eliquis on 04/13/25
#Transaminitis
Trend liver function tests
Recent history of new mildly reduced EF 45 to 50% without evidence of volume overload, possible tachycardia mediated interval
- Monitor volume status
#Paroxysmal atrial fibrillation
Continue on Metoprolol tartrate and and PO Cardizem
Follow-up with Dr. Clemente outpatient
#Elevated alk.phos and mild transaminitis
improving
most likely 2/2 colitis
GI recommended further imaging only if labs worsening
#CAD s/p LAD/RCA PCI 2014
#Moderate to severe TR
#Moderate MR by echo 11/19/2024
#mild cognitive impairment
#Anxiety
#Essential HTN
#Hyperlipidemia
#HX bowel resection/ Rt hemicolectomy (volvulus 2012)
cont home meds
DVT prophylaxis�Eliquis
Full code
Total time spent to see the patient on the floor, examine the patient, review data and lab results, discuss treatment plan with patient, nursing staff around 55 minutes.
Anticipated Discharge: Within 24 hours
Subjective/Interval History
-
Date of Service: April 13, 2025
Objective Data
-
Labs:
Laboratory Results
04/13/25
07:42
WBC 11.3 H
Hgb 10.9 L
Hct 33.4 L
Plt Count 294
Sodium 137
Potassium 3.6
Chloride 110 H
Carbon Dioxide 21 L
BUN 8
Creatinine 0.8
Glucose 92
Calcium 7.8 L
Total Bilirubin 0.8
AST 25
ALT 45 H
Alkaline Phosphatase 148 H
Vital Signs:
Vital Signs
Temp Pulse Resp BP Pulse Ox
98.0 F 85 16 152/73 99
04/13/25 11:05 04/13/25 11:05 04/13/25 11:05 04/13/25 11:05 04/13/25 11:05
I&O
04/12/25 04/13/25 04/14/25
06:59 06:59 06:59
Intake Total 220 / 220 2365 / 2365
Balance 220 / 220 2365 / 2365
Review of Systems
-
History Source: Patient
All other systems: Reviewed and negative
Physical Exam
-
General: No Apparent Distress
HEENT: Normocephalic
Respiratory: Clear to Auscultation
GI: Soft, Nontender and Nondistended
Musculoskeletal: No Clubbing, No Cyanosis and No Edema
Neuro: Awake and AO x 3
Psych: Calm
--- NOTE | 2025-04-13 14:09 | CM ---
CM reviewed chart, patient seen bedside, initial assessment completed. Patient resides with her in a one level home, one small step to enter. Patient reports is handicap, have two wheelchairs, two rollators, four canes at home.
Patient reports she is current with [facility], denies SNF. Patient confirms PCP [facility], pharmacy [facility], confirms prescription coverage. Patient denies insecurities at home. Patient reports she and her are looking into
independent living facilities. CM will continue to follow for all discharge planning needs.
Plan; home with [facility]
[2025-04-13] MEDS: ELIQUIS 2.5 MG PO (20:20)
[2025-04-13] MEDS: XALATAN OPHTHALMIC SOLUTION 1 DROP BOTH EYES (21:55)
[2025-04-14 03:30] VITALS: BP 140/78
[2025-04-14] MEDS: ZOSYN 50 IV ×2 (03:34→09:38)
[2025-04-14 05:26] VITALS: BMI 19.4
[2025-04-14 06:39] LABS: Hematocrit 33.6 % (37.0-47.0); Hemoglobin 10.8 g/dL (12.0-16.0); Mean Corp Hgb Conc. 32.1 g/dL (33.0-37.0); Mean Corpuscular Volume 93.1 fL (81.0-99.0); Nucleated Red Blood Cells % 0 %; Platelet Count 293 10^3/uL (130-400); Red Cell Dist. Width 14.0 % (11.5-14.5)
[2025-04-14 07:01] LABS: ALT (SGPT) 38 U/L (0-35); AST (SGOT) 24 U/L (14-36); Albumin 3.3 g/dl (3.5-5.0); Alkaline Phosphatase 140 U/L (38-126); Blood Urea Nitrogen 8 mg/dl (7-17); Calcium 8.1 mg/dl (8.4-10.2); Carbon Dioxide 24 mmol/L (22-30); Chloride 108 mmol/L (98-107); Estimated Creatinine Clearance 48 ml/min; Glucose 105 mg/dl (70-99); Potassium 3.5 mmol/L (3.5-5.1); Sodium 139 mmol/L (135-145); Total Protein 5.4 g/dl (6.3-8.2); eGFR > 60.00
[2025-04-14 07:20] VITALS: BP 139/78
--- NOTE | 2025-04-14 09:27 | VNURNOTE ---
Chart reviewed. Patient is current with [facility]. Will continue to follow hospital course and DC plans.
[2025-04-14] MEDS: CARDIZEM CD 120 MG PO (09:28)
[2025-04-14] MEDS: CYMBALTA DELAYED RELEASE 30 MG PO (09:29)
[2025-04-14] MEDS: ELIQUIS 2.5 MG PO (09:29)
[2025-04-14] MEDS: LOPRESSOR 50 MG PO (09:29)
[2025-04-14] MEDS: FEMARA 2.5 MG PO (09:29)
[2025-04-14] MEDS: PAXIL 30 MG PO (09:29)
[2025-04-14] MEDS: NSS (PRESERVATIVE FREE) 10 ML IV (09:29)
[2025-04-14] MEDS: VITAMIN B1 100 MG PO (09:29)
[2025-04-14] MEDS: PROTONIX IV 40 MG IV (09:30)
--- NOTE | 2025-04-14 10:37 | W.PN.HOSP.TC ---
Addendum entered and electronically signed by Yael Rainey MD 04/16/25 07:50:
Yes, rectal bleeding is related to/associated with/due to/exacerbated by Eliquis
-Eliquis resumed with stable Hg
Original Note:
Today's Communication/Plan
-
expect DC post PT Eval today
Assessment / Plan
Assessment / Plan
84yo F with PMHx of CAD, Afib on Eliquis, HLD, HTN, anxiety, GERD, constipation came with hematochezia and abdominal tenderness, CT showed large 19cm section of colitis, most likely infectious. GI followed and no plan for colonoscopy, recommended
outpatient follow up.
Assessment/plan:
#Rectal bleeding
#Colitis
Appreciate GI input, suspect infectious versus ischemic, less likely inflammatory
Patient had a recent colonoscopy January 2020
Dilation of small bowels chronic, low suspicion for SBO
Continue IV Zosyn, follow-up with stool studies, restart Eliquis on 04/13/25
now tolerating LRD
3rd full day antibiotics - DC on additional 4 days to complete a total of 7 day course; suspect ready for DC this afternoon post PT Eval
#Transaminitis
Trend liver function tests - improving
Recent history of new mildly reduced EF 45 to 50% without evidence of volume overload, possible tachycardia mediated interval
- Monitor volume status, not on lasix at home
#Paroxysmal atrial fibrillation
Continue on Metoprolol tartrate and and PO Cardizem
Follow-up with Dr. Clemente outpatient
-VP GENETIC eliquis resumed
#CAD s/p LAD/RCA PCI 2014
#Moderate to severe TR
#Moderate MR by echo 11/19/2024
#mild cognitive impairment
#Anxiety
#Essential HTN
#Hyperlipidemia
#HX bowel resection/ Rt hemicolectomy (volvulus 2012)
cont home meds
DVT prophylaxis�Eliquis
Full code
Total time spent to see the patient on the floor, examine the patient, review data and lab results, discuss treatment plan with patient, nursing staff around 55 minutes.
Anticipated Discharge: Within 24 hours
Subjective/Interval History
-
Date of Service: April 14, 2025
ate breakfast
overall feeling better
Objective Data
-
Labs:
Laboratory Results
04/14/25
06:13
WBC 9.0
Hgb 10.8 L
Hct 33.6 L
Plt Count 293
Sodium 139
Potassium 3.5
Chloride 108 H
Carbon Dioxide 24
BUN 8
Creatinine 0.8
Glucose 105 H
Calcium 8.1 L
Total Bilirubin 0.7
AST 24
ALT 38 H
Alkaline Phosphatase 140 H
Vital Signs:
Vital Signs
Temp Pulse Resp BP Pulse Ox
97.4 F 93 18 139/78 97
04/14/25 07:20 04/14/25 07:20 04/14/25 07:20 04/14/25 07:20 04/14/25 07:20
I&O
04/13/25 04/14/25 04/15/25
06:59 06:59 06:59
Intake Total 2364
Balance 2364
Review of Systems
-
History Source: Patient
All other systems: Reviewed and negative
Physical Exam
-
General: No Apparent Distress
HEENT: PERRLA
Respiratory: Clear to Auscultation; Negative Wheezes
Cardiac: Regular Rhythm and S1/S2
GI: Soft and Nontender
Musculoskeletal: No Edema
Skin: Warm and Dry; Negative Rash
Neuro: AO x 3
Psych: Calm
Data Reviewed
-
Diagnostic Radiology: Report Reviewed by me
Labs: Labs Reviewed by me
[2025-04-14 11:14] VITALS: BP 115/64; PULSE 98; O2SAT 97
--- NOTE | 2025-04-14 11:19 | W.DS.TRANS ---
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
-
Discharge Instructions:
Sleep Apnea Risk Intermediate
Discharge Diagnosis/Procedures Colitis (inflammation of the colon)
Diet Low Residue
Additional Diets Low residue diet for another 10 days then slowly
advance
Activity As tolerated
Driving Restrictions As prior to admission
Bathing Restrictions None
Other Services VN,PT
Instructions:
Stand-Alone Forms:
Changes to Home Medications: Yes
Discharge Medications:
DC Medications w/original date entered in [facility]
pantoprazole 40 mg tablet,delayed release 40 mg PO DAILY Gastrointestinal issue 07/26/15
bimatoprost 0.01 % eye drops (Lumigan) 1 drp BOTH EYES HS Eye condition 09/15/22
ezetimibe 10 mg tablet (Zetia) 10 mg PO HS High cholesterol 09/15/22
letrozole 2.5 mg tablet 2.5 mg PO DAILY Cancer 09/15/22
cyanocobalamin (vitamin B-12) 50 mcg tablet (Vitamin B-12) 50 mcg PO DAILY Supplement 03/19/25
duloxetine 30 mg capsule,delayed release 30 mg PO DAILY Mental Health/Anxiety 03/19/25
evolocumab 140 mg/mL subcutaneous pen injector (Philippe Blancoick) 140 mg SC Q2W High Cholesterol 03/19/25
paroxetine HCl 30 mg tablet 30 mg PO DAILY Mental Health/Anxiety 03/19/25
apixaban 2.5 mg tablet (Eliquis) 2.5 mg PO BID #60 tabs 03/24/25
diltiazem HCl 120 mg capsule,extended release 24 hr 120 mg PO DAILY #30 caps 03/24/25
metoprolol tartrate 25 mg tablet 50 mg (2 x 25 mg) PO BID #120 tabs 03/24/25
thiamine HCl (vitamin B1) 100 mg tablet 100 mg PO DAILY #20 tabs 03/24/25
Benefiber (guar gum) 2 tsp PO DAILY Constipation 04/11/25
aspirin 81 mg tablet,delayed release 81 mg PO DAILY Blood Clot Prevention/Tx 04/11/25
atorvastatin 80 mg tablet 40 mg PO DAILY High Cholesterol 04/11/25
calcium carbonate 1,000 mg PO DAILY Supplement 04/11/25
docusate sodium 100 mg capsule (Stool Softener) 200 mg PO DAILYPRN PRN constipation 04/11/25
loperamide 2 mg capsule 4 mg PO BIDPRN PRN diarrhea 04/11/25
amoxicillin 875 mg-potassium clavulanate 125 mg tablet 1 tab PO BID #9 tabs 04/14/25
latanoprost 0.005 % eye drops 1 drp BOTH EYES HS #0 mL 04/14/25
Home Medication Changes
Addition of Augmentin
Pending Results: Yes
Additional Pending Results:
stool culture
[2025-04-14 11:48] VITALS: BP 117/65
--- NOTE | 2025-04-14 11:57 | CM ---
CM reviewed chart, patient seen bedside, for discharge today. Patient will continue services with [facility]. IMM verbally reviewed, provided with copy, placed in chart. Patient confirms her daughter will provide transportation home. CM will continue to
follow for all discharge planning needs.
Plan; home with [facility], family to transport
[2025-04-14] MEDS: AUGMENTIN 875 MG/125 MG 1 TABLET PO (14:05)
--- NOTE | 2025-04-14 14:37 | W.DCSUMMARY ---
Discharge Summary
Discharge Data
Date of Admission: 04/11/25
Date of Discharge: 04/14/25
-
Pending Results: No
Hospital Course
Discharging Physician : Dr. Yael Rainey
Disposition : Home
Primary care physician : Dr. Bing Martinez
Principal Discharge diagnosis : Acute Colitis
Hospital Course :
Ms. Gwen Clark is a 84 yo woman with hx CAD, afib on Eliquis, essential HTN, HLD, GERD presents to ER with hematochezia and abdominal tenderness.
Triage vitals stable. Labs with WBC 17.9, renal function stable, liver enzymes mildly elevated. CT with 19cm segment severe wall thickening compatible with colitis. She was admitted to medicine with GI consulting and started on IV antibiotics.
Stool culture pending at time of discharge.
Patient's symptoms improved and she is tolerated a LRD prior to discharge. Per GI, with stable Hg and improvement in symptoms, endoscopic evaluation deferred to outpatient.
Patient's Eliquis was resumed. She is discharged on Augmentin to complete a total 7 day course of antibiotics and follow up with her PCP and GI.
Time spent on discharge was 35 minutes.
Important imaging findings :
CT A/P
IMPRESSION: 19 cm long segment of severe wall thickening involving the left side of the transverse colon through the splenic flexure. This is compatible with colitis. Infectious colitis would be the leading consideration. Inflammatory bowel disease
could be considered although unusual distribution. Ischemic colitis is a differential consideration, felt to be less likely.
Status post right hemicolectomy. Mild to moderate dilation of mid to distal small bowel loops, which may be on the basis of partial obstruction from colitis. There was dilation of small bowel loops on the previous CT, and there could also be a
component of chronic small bowel dilation.
Bilateral renal cysts.
Two less than 5 mm low-density lesions within the liver, too small to characterize, but statistically likely small cysts or hemangiomas, for which no further imaging follow-up is recommended.
Procedure findings :
Discharge Plan
-
Patient Disposition: Home (Routine Discharge)
Discharge Diagnosis/Procedures: Colitis (inflammation of the colon)
Diet: Low Residue
Additional Diets: Low residue diet for another 10 days then slowly advance
Activity: As tolerated
Driving Restrictions: As prior to admission
Bathing Restrictions: None
Other Services: VN and PT
Referrals:
Valencia Santana CRNP [Specified Professional Personl, Gastroenterology] - 06/09/25 11:30 am
Bing Paz MD [Family Provider, Internal Medicine] - in less than 1 week
Additional Discharge Medication Instructions: You have 4 1/2 more days of Augmentin for treatment of colitis
Discuss stopping aspirin with your outpatient physician, given you are on Eliquis for atrial fibrillation and have had episodes of bleeding.
Prescriptions:
New
latanoprost 0.005 % Drops
1 drp BOTH EYES HS Qty: 0 0RF
amoxicillin-pot clavulanate 875-125 mg Tablet
1 tab PO BID Qty: 9 0RF
Continued
pantoprazole 40 MG tablet,delayed release (DR/EC)
40 mg PO DAILY
letrozole 2.5 mg Tablet
2.5 mg PO DAILY
ezetimibe [Zetia] 10 mg Tablet
10 mg PO HS
Lumigan 0.01 % Drops
1 drp BOTH EYES HS
Vitamin B-12 50 mcg Tablet
50 mcg PO DAILY
paroxetine HCl 30 mg tablet
30 mg PO DAILY
duloxetine 30 mg capsule,delayed release(DR/EC)
30 mg PO DAILY
Repatha SureClick 140 mg/mL pen injector
140 mg SC Q2W
diltiazem HCl 120 mg Capsule,Extended Release 24hr
120 mg PO DAILY Qty: 30 1RF
Eliquis 2.5 mg Tablet
2.5 mg PO BID Qty: 60 1RF
metoprolol tartrate 25 mg Tablet
50 mg PO BID Qty: 120 1RF
thiamine HCl (vitamin B1) 100 mg tablet
100 mg PO DAILY Qty: 20 0RF
atorvastatin 80 mg Tablet
40 mg PO DAILY
loperamide 2 mg Capsule
4 mg PO BIDPRN PRN (Reason: diarrhea)
aspirin 81 mg Tablet,Delayed Release (Dr/Ec)
81 mg PO DAILY
calcium carbonate 500 mg calcium (1,250 mg) Tablet
1,000 mg PO DAILY
docusate sodium [Stool Softener] 100 mg Capsule
200 mg PO DAILYPRN PRN (Reason: constipation)
Benefiber (guar gum) powder
2 tsp PO DAILY
Discharge Orders:
Discharge Patient (As Directed); Ordered 04/14/25
Ordered By: Yael Rainey
Discharge Date and Time
Print Language: LAO
--- NOTE | 2025-04-15 09:00 | PN.CDI ---
CDI
- -
CDI:
Physician Documentation Request
Admit Date: 04/11/25 18:09
Dear Doctor Brigid,
Patient presented to ED with rectal bleeding. 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
Please clarify if a relationship exist between these conditions:
Yes, rectal bleeding is related to/associated with/due to/exacerbated by Eliquis
No, rectal bleeding is not related to/associated with/due to/exacerbated by Eliquis
Unable to determine
Use of terms such as suspected, likely, concern for, or probable (associated with a specific diagnosis that is being evaluated, monitored, or treated as if it exists) are acceptable and can be coded in the inpatient setting, when documented at the
time of discharge.
Thank you,
Sangeeta Loomis RN, BSN
CDI Specialist
tiger text
Please use your independent medical judgment in providing your response.
== END 2025-04-14 15:50 | disposition home health service (06) | DRG 394 ==
LOC: 4 WEST ACU 18:09
PROVIDERS: Family Medicine; Internal Medicine; ADMITTING PHYSICIAN Internal Medicine; ATTENDING PHYSICIAN Student in an Organized Health Care Education/Training Program; CONSULT PHYSICIAN Internal Medicine; EMERGENCY PHYSICIAN Emergency Medicine; FAMILY PHYSICIAN Student in an Organized Health Care Education/Training Program
DX: K55.9 Vascular disorder of intestine, unspecified (principal); A09 Infectious gastroenteritis and colitis, unspecified; I50.32 Chronic diastolic (congestive) heart failure; D68.32 Hemorrhagic disorder due to extrinsic circulating anticoagulants; K62.5 Hemorrhage of anus and rectum; I48.0 Paroxysmal atrial fibrillation; F41.9 Anxiety disorder, unspecified; K21.9 Gastro-esophageal reflux disease without esophagitis; I25.10 Atherosclerotic heart disease of native coronary artery without angina pectoris; I11.0 Hypertensive heart disease with heart failure; K59.00 Constipation, unspecified; Z87.440 Personal history of urinary (tract) infections; I25.5 Ischemic cardiomyopathy; Z85.3 Personal history of malignant neoplasm of breast; Z79.01 Long term (current) use of anticoagulants; Z79.82 Long term (current) use of aspirin; Z79.899 Other long term (current) drug therapy; Z79.811 Long term (current) use of aromatase inhibitors; D18.00 Hemangioma unspecified site; E78.00 Pure hypercholesterolemia, unspecified; N28.1 Cyst of kidney, acquired; Z82.49 Family history of ischemic heart disease and other diseases of the circulatory system; Z90.49 Acquired absence of other specified parts of digestive tract; Z98.61 Coronary angioplasty status
CPT/HCPCS: 74177; 80048; 80053; 83605; 85014; 85018; 85025; 85027; 85610; 86850; 86900; 86901; 87045; 87046; 87324; 87427; 87449; 97162; 99284; Q9967

== ENCOUNTER 2025-05-14 09:51 | Day surgery (SDC) | payer OTHER, SELFPAY ==
--- NOTE | 2025-05-14 11:13 | ITS.CL.CARDI ---
[employer] Operator - Cardioversion
Cardioversion
Procedure Report:
Date of Procedure: May 14 2025
Procedure: Cardioversion
Indication: Symptomatic atrial fibrillation
Performing Physician: Fabian Clemente DO, FACC
Technique: The patient was brought to the holding area. Signed informed consent was obtained. A time out was called and performed. The patient was anesthetized by the anesthesia service. Anticoagulation status was reviewed and appropriate. R2 pads
were placed anteriorly and posteriorly. A 200 J synchronized biphasic shock restored normal sinus rhythm without significant bradycardia. There were no complications.
Conclusion: Uncomplicated cardioversion from atrial fibrillation to sinus rhythm.
Recommendation: Routine post cardioversion care. Continue long-term anticoagulation.
== END 2025-05-14 11:40 | disposition home or self-care (01) ==
LOC: CATH 09:51
PROVIDERS: ATTENDING PHYSICIAN Nuclear Medicine Nuclear Cardiology; FAMILY PHYSICIAN Student in an Organized Health Care Education/Training Program
DX: I48.0 Paroxysmal atrial fibrillation (principal); Z79.01 Long term (current) use of anticoagulants; I50.22 Chronic systolic (congestive) heart failure; I25.5 Ischemic cardiomyopathy; E78.5 Hyperlipidemia, unspecified; Z79.82 Long term (current) use of aspirin
CPT/HCPCS: 92960; 93005

== ENCOUNTER 2025-06-02 12:50 | Outpatient (RCR) | payer OTHER, SELFPAY ==
[2025-06-02 13:40] VITALS: BP 133/79
[2025-06-02] MEDS: VENOFER 110 MG IV (13:53)
[2025-06-02 14:59] VITALS: BP 138/86
== END 2025-06-03 09:48 | disposition home or self-care (01) ==
LOC: OID 12:50
PROVIDERS: ATTENDING PHYSICIAN Student in an Organized Health Care Education/Training Program
DX: D50.9 Iron deficiency anemia, unspecified (principal)
CPT/HCPCS: 96365; J1756

== ENCOUNTER 2025-06-18 10:44 | Outpatient (RCR) | payer OTHER, SELFPAY ==
[2025-06-09 08:50] VITALS: BP 126/75
[2025-06-09] MEDS: VENOFER 110 MG IV (09:06)
[2025-06-09 10:15] VITALS: BP 146/74
[2025-06-12 10:16] VITALS: BP 107/75
[2025-06-12] MEDS: VENOFER 110 MG IV (10:40)
[2025-06-12 12:05] VITALS: BP 127/91
[2025-06-16 13:16] VITALS: BP 107/62
[2025-06-16] MEDS: VENOFER 110 MG IV (13:29)
[2025-06-16 14:59] VITALS: BP 121/21
[2025-06-18 11:35] VITALS: BP 120/65
[2025-06-18] MEDS: VENOFER 110 MG IV (11:55)
== END 2025-06-19 08:17 | disposition home or self-care (01) ==
LOC: OID 10:44
PROVIDERS: ATTENDING PHYSICIAN Student in an Organized Health Care Education/Training Program
DX: D50.9 Iron deficiency anemia, unspecified (principal)
CPT/HCPCS: 96365; J1756

== ENCOUNTER → 2025-07-21 08:14 | Outpatient (REF) | payer OTHER, SELFPAY | LOC: HWWDC 08:14 | PROVIDERS: ATTENDING PHYSICIAN Internal Medicine Hematology & Oncology; FAMILY PHYSICIAN Student in an Organized Health Care Education/Training Program; REFERRING PHYSICIAN Obstetrics & Gynecology Gynecology | DX: Z12.31 Encounter for screening mammogram for malignant neoplasm of breast (principal) | CPT/HCPCS: 77063; 77067 ==

== ENCOUNTER 2025-07-25 15:41 | Emergency (ER) | payer OTHER, SELFPAY ==
[2025-07-25 15:43] VITALS: BP 126/68
[2025-07-25] MEDS: TYLENOL 650 MG PO (16:27)
--- NOTE | 2025-07-25 16:27 | ED.GENMED ---
History of Present Illness
General
Chief Complaint: Fall
Source: patient
Exam Limitations: none
Time Seen by Provider: 07/25/25 16:03
Nursing documentation reviewed up to this point in time: agreed with
History of Present Illness
History of Present Illness:
Patient presents to ED secondary to loss of balance and falling on to the ground, when she tried to grab the shopping cart that was rolling away from her. Patient braced the fall with her right hand, but still hit her head on the ground. Denies
loss of consciousness. Denies neck pain. Denies loss of sensation or weakness. Denied nausea vomiting. Denies dizziness. Patient is on Eliquis chronically. Patient states that her tetanus vaccination is up-to-date.
Past History
Past History
ED Past Medical History: CAD and GERD
ED Past Surgical History: Bowel resection and Cardiac (ptca 2012)
Social History
Tobacco: Non-smoker
Alcohol: Occasional
Drug: None
Personal:
Living: with family
Employment: Retired
Family History
Family History: CAD
Review of Systems
Review of Systems
Allergies reviewed?: Yes
All Other Systems: ROS reviewed and negative except as documented in HPI and ROS
Constitutional: Reports no symptoms
Musculoskeletal: Reports no symptoms
Skin: Reports other (forehead laceration)
Neurological: Reports no symptoms; Denies dizzy or weakness
Phy Exam
Physical Exam
Physical Exam:
Physical Exam
General: no apparent distress, not acutely ill. afebrile
Head: an approx 4cm linear superficial laceration over lateral aspect of right eyebrow without active bleeding. ecchymosis/swelling noted
Neck: supple. normal range of motion
Neuro: alert and oriented x 3. no focal neurological deficits
Skin: no rash
Psychiatric: well kept. interactive and cooperative
Extremities: no edema. no calf tenderness.
Course
Orders/Labs/Results
Orders:
Orders
07/25/25 16:09
CT Head W/o Iv Contrast Urgent
Comment:
Reason For Exam: trauma to right frontal head
07/25/25 16:10
Acetaminophen [Tylenol] 650 mg PO NOW STA
Vital Signs
Initial and Last Documented VS:
Initial Vital Signs
Temp Pulse Resp BP Pulse Ox
97.7 F 84 18 126/68 99
07/25/25 15:43 07/25/25 15:43 07/25/25 15:43 07/25/25 15:43 07/25/25 15:43
Last Documented Vital Signs
Temp Pulse Resp BP Pulse Ox
97.7 F 92 16 135/83 99
07/25/25 15:43 07/25/25 19:24 07/25/25 19:24 07/25/25 19:24 07/25/25 19:24
Procedures
Laceration Closure
Left Lateral Forehead:
Status of Wound: clean
Size of Wound in cm: 4
Description of Wound Edges: sharp
Preparation: cleaned with SurClens
Anesthesia: 1% Lidocaine with epi
Revision/Debridement: routine- no revision
Type of Closure: single layer closure
Skin Closure Material: 6-0 nylon
Number of sutures: 5
MDM/Problems Addressed
MDM/Problems Addressed:
Wound well-approximated after placement of [address] head without acute findings. Patient otherwise remains afebrile, hemodynamically stable, and neurologically intact, at time of discharge, to the care of her daughter. Recommended PCP
follow-up as an outpatient, along with continue icing of the affected area, as well as suture removal in 7 to 10 days.
*Pulse Oximetry
SaO2: 99
Oxygen Mode of Delivery: Room air
Patient hypoxic: no
*Critical Care Note
Total Time (30-74mins, 75-104mins- exclusive of procedures): Not Applicable
ED Attending Note
-
Portions of this chart may have been created with voice recognition software.� Occasional wrong word or��sound alike� substitutions may have occurred due to the inherent limitations of voice recognition software.
Discharge Plan
Departure
Patient Disposition: Home (Routine Discharge)
Date of Disposition: 07/25/25
Time of Disposition: 19:06
Patient with high blood pressure during this ER visit?: Yes
Condition: Fair
Discharge Problem:
Laceration of forehead, Head injury
Instructions: Head Injury in Adults (DC), Laceration Repair With Stitches (DC)
Prescriptions:
No Action
pantoprazole 40 MG tablet,delayed release (DR/EC)
40 mg PO DAILY
letrozole 2.5 mg Tablet
2.5 mg PO DAILY
ezetimibe [Zetia] 10 mg Tablet
10 mg PO HS
Lumigan 0.01 % Drops
1 drp BOTH EYES HS
Vitamin B-12 50 mcg Tablet
50 mcg PO DAILY
paroxetine HCl 30 mg tablet
30 mg PO QPM
duloxetine 30 mg capsule,delayed release(DR/EC)
30 mg PO DAILY
Repatha SureClick 140 mg/mL pen injector
140 mg SC Q2W
diltiazem HCl 120 mg Capsule,Extended Release 24hr
120 mg PO DAILY Qty: 30 1RF
Eliquis 2.5 mg Tablet
2.5 mg PO BID Qty: 60 1RF
metoprolol tartrate 25 mg Tablet
50 mg PO BID Qty: 120 1RF
thiamine HCl (vitamin B1) 100 mg tablet
100 mg PO DAILY Qty: 20 0RF
atorvastatin 80 mg Tablet
40 mg PO QPM
loperamide 2 mg Capsule
2 mg PO BIDPRN PRN (Reason: diarrhea)
aspirin 81 mg Tablet,Delayed Release (Dr/Ec)
81 mg PO DAILY
Benefiber (guar gum) powder
2 tsp PO DAILY
calcium 600 mg Capsule
1,200 mg PO DAILY
Prolia 60 mg/mL Syringe
60 mg SC [id number]
Referrals:
Bing Paz MD [Family Provider, Internal Medicine]
Activity Restrictions/Additional Instructions:
As discussed, please follow-up with your primary care physician for reevaluation, including suture removal in 7 to 10 days.
Interventions
Interventions:
*Risk Screen - Suicide Last Done: 07/25/25 15:43
*General Assessment Last Done: 07/25/25 17:19
*Neglect/Abuse Screening Last Done: 07/25/25 17:19
*ED- Fall Risk Assessment Last Done: 07/25/25 17:19
*ED COVID-19 Vaccine History Last Done: 07/25/25 17:19
*ED Influenza Vaccine History Last Done: 07/25/25 17:19
*Nursing Disposition Last Done: 07/25/25 19:26
ED-Musculoskeletal Assessment Last Done: 07/25/25 17:19
ED- Neurological Assessment Last Done: 07/25/25 17:19
ED-Skin Assessment Last Done: 07/25/25 17:19
Discharge Date and Time
Discharge Date/Time: 07/25/25 19:27
Print Language: WOLOF
[2025-07-25 19:24] VITALS: BP 135/83
== END 2025-07-25 19:27 | disposition home or self-care (01) ==
LOC: EMR 15:41
PROVIDERS: EMERGENCY PHYSICIAN Emergency Medicine; FAMILY PHYSICIAN Student in an Organized Health Care Education/Training Program
DX: S01.81XA Laceration without foreign body of other part of head, initial encounter (principal); S09.90XA Unspecified injury of head, initial encounter; W18.39XA Other fall on same level, initial encounter; I25.10 Atherosclerotic heart disease of native coronary artery without angina pectoris; K21.9 Gastro-esophageal reflux disease without esophagitis; Z79.01 Long term (current) use of anticoagulants; Z79.82 Long term (current) use of aspirin; Z82.49 Family history of ischemic heart disease and other diseases of the circulatory system
CPT/HCPCS: 99284; 12013; 70450

== ENCOUNTER → 2025-08-06 11:56 | Outpatient (REF) | payer OTHER, SELFPAY | LOC: HWRAD 11:56 | PROVIDERS: ATTENDING PHYSICIAN Student in an Organized Health Care Education/Training Program | DX: M25.531 Pain in right wrist (principal); Z91.81 History of falling; M25.562 Pain in left knee | CPT/HCPCS: 73110; 73130; 73564 ==

== ENCOUNTER → 2025-08-11 10:05 | Outpatient (REF) | payer OTHER, SELFPAY | LOC: HWRCS 10:05 | PROVIDERS: ATTENDING PHYSICIAN Nuclear Medicine Nuclear Cardiology; FAMILY PHYSICIAN Student in an Organized Health Care Education/Training Program | DX: I49.3 Ventricular premature depolarization (principal); I48.0 Paroxysmal atrial fibrillation; I25.10 Atherosclerotic heart disease of native coronary artery without angina pectoris; I25.5 Ischemic cardiomyopathy; I50.22 Chronic systolic (congestive) heart failure; I34.0 Nonrheumatic mitral (valve) insufficiency | CPT/HCPCS: 93306 ==

== ENCOUNTER → 2025-10-06 14:44 | Outpatient (REF) | payer OTHER, SELFPAY | LOC: HWRAD 14:44 | PROVIDERS: ATTENDING PHYSICIAN Internal Medicine Hematology & Oncology; FAMILY PHYSICIAN Student in an Organized Health Care Education/Training Program | DX: C50.211 Malignant neoplasm of upper-inner quadrant of right female breast (principal); M81.0 Age-related osteoporosis without current pathological fracture | CPT/HCPCS: 77080 ==